=== PATIENT | female | born 1945 | race Caucasian/White ===

== ENCOUNTER 2020-11-04 16:53 | Inpatient (IN) | payer MEDICARE ==
[2020-11-04] MEDS ORDERED: METOCLOPRAMIDE 5 MG/ML 2 ML VIAL IVP STA (19:17)
[2020-11-04] MEDS ORDERED: SODIUM CHLORIDE 0.9% 1,000 ML IV STA (19:17)
--- NOTE | 2020-11-04 19:20 | ED ---
General Adult HPI - General Chief complaint: Abdominal Pain Stated complaint: Abd Pain,Dizziness Time Seen by Provider: 11/04/20 19:00 Source: patient, RN notes reviewed, old records reviewed Mode of arrival: wheelchair Limitations: no limitations - History of Present Illness Initial comments: 75-year-old white female that presents to the emergency room with complaints of nausea and vomiting 1 today and multiple episodes of diarrhea. She states that she has abdominal cramping and there has been blood in the stool. This has never happened to her before. She has a history of cholecystectomy. She denies any sick contacts. She has been afebrile. She does state she has relief with the pain after diarrhea but then pain comes back. -: days(s) (1) Location: abdomen Severity scale (1-10): 7 Quality: other Consistency: intermittent (Cramping) Associated Symptoms: nausea/vomiting, other (Dizziness) - Related Data Home Medications Medication Instructions Recorded Confirmed Cetirizine HCl 10 mg PO DAILY PRN 10/05/15 11/04/20 lisinopriL [Zestril] 10 mg PO HS 10/05/15 11/04/20 Aspirin EC [Ecotrin] 325 mg PO HS 11/04/20 11/04/20 Atorvastatin Calcium [Lipitor] 20 mg PO HS 11/04/20 11/04/20 Allergies Allergy/AdvReac Type Severity Reaction Status Date / Time neomycin Allergy Rash/Hives Verified 11/04/20 22:00 Sulfa (Sulfonamide Allergy Dyspnea Verified 11/04/20 22:00 Antibiotics) tobramycin [From Tobrex] Allergy Swelling Verified 11/04/20 22:00 Review of Systems ROS Statement: Those systems with pertinent positive or pertinent negative responses have been documented in the HPI. ROS Other: All systems not noted in ROS Statement are negative. Past Medical History Past Medical History: CVA/TIA, Diabetes Mellitus, Hyperlipidemia, Hypertension, Osteoarthritis (OA) Additional Past Medical History / Comment(s): pt state" has elevated blood calcium levels-dr valdez, arthtitis, diet controled diabetic, checks bs occ, takes no meds. cataracats,bladder infection History of Any Multi-Drug Resistant Organisms: None Reported Past Surgical History: Adenoidectomy, Cholecystectomy, Tubal Ligation Additional Past Surgical History / Comment(s): cysts removed from face Past Anesthesia/Blood Transfusion Reactions: No Reported Reaction Additional Past Anesthesia/Blood Transfusion Reaction / Comment(s): clausterphobia Past Psychological History: No Psychological Hx Reported Smoking Status: Never smoker Past Alcohol Use History: Occasional Past Drug Use History: None Reported - Past Family History Father Additional Family Medical History / Comment(s): from "hardening of the arteries" Mother Family Medical History: CVA/TIA, Myocardial Infarction ([place]) General Exam Limitations: no limitations Course Vital Signs 11/04/20 11/04/20 18:02 23:15 Temperature 98.4 F Pulse Rate 101 H 123 H Respiratory 20 18 Rate Blood Pressure 151/82 146/94 O2 Sat by Pulse 95 97 Oximetry Medical Decision Making - Medical Decision Making There is inflammatory changes around the mid sigmoid colon consistent with colitis or diverticulitis. There is no abscess. Her white blood cell count is 13.7. Her potassium is 5.8 however patient does state that she is being evaluated for chronic kidney disease by her hospitalist nocturnist physician. Patient continues to have intermittent abdominal pain and diarrhea while in the emergency room. I will admit the patient with diverticulitis. Case discussed with Dr. Bunn - Lab Data Result diagrams: 11/04/20 21:04 11/04/20 21:04 Lab Results 11/04/20 11/04/20 11/04/20 Range/Units 19:56 19:56 21:04 WBC (3.8-10.6) k/uL RBC (3.80-5.40) m/uL Hgb (11.4-16.0) gm/dL Hct (34.0-46.0) % MCV (80.0-100.0) fL MCH (25.0-35.0) pg MCHC (31.0-37.0) g/dL RDW (11.5-15.5) % Plt Count (150-450) k/uL MPV Neutrophils % % Lymphocytes % % Monocytes % % Eosinophils % % Basophils % % Neutrophils # (1.3-7.7) k/uL Lymphocytes # (1.0-4.8) k/uL Monocytes # (0-1.0) k/uL Eosinophils # (0-0.7) k/uL Basophils # (0-0.2) k/uL Sodium 137 (137-145) mmol/L Potassium 5.8 H (3.5-5.1) mmol/L Chloride 107 (98-107) mmol/L Carbon Dioxide 20 L (22-30) mmol/L Anion Gap 10 mmol/L BUN 18 H (7-17) mg/dL Creatinine 1.13 H (0.52-1.04) mg/dL Est GFR (CKD-EPI)AfAm 55 (>60 ml/min/1.73 sqM) Est GFR (CKD-EPI)NonAf 48 (>60 ml/min/1.73 sqM) Glucose 167 H (74-99) mg/dL Calcium 9.7 (8.4-10.2) mg/dL Total Bilirubin 1.7 H (0.2-1.3) mg/dL AST 51 H (14-36) U/L ALT 20 (4-34) U/L Alkaline Phosphatase 55 (38-126) U/L Total Protein 7.8 (6.3-8.2) g/dL Albumin 4.5 (3.5-5.0) g/dL Amylase 74 (30-110) U/L Lipase 105 (23-300) U/L Urine Color Yellow Urine Appearance Cloudy H (Clear) Urine pH 5.0 (5.0-8.0) Ur Specific [place] 1.012 (1.001-1.035) Urine Protein Trace H (Negative) Urine Glucose (UA) Negative (Negative) Urine Ketones Trace H (Negative) Urine Blood Negative (Negative) Urine Nitrite Negative (Negative) Urine Bilirubin Negative (Negative) Urine Urobilinogen <2.0 (<2.0) mg/dL Ur Leukocyte Esterase Negative (Negative) Urine RBC 1 (0-5) /hpf Urine WBC 2 (0-5) /hpf Ur Squamous Epith Cells 2 (0-4) /hpf Amorphous Sediment Rare H (None) /hpf Urine Bacteria Rare H (None) /hpf Hyaline Casts 32 H (0-2) /lpf Granular Casts 5 (0) /lpf Urine Mucus Rare H (None) /hpf Influenza Type A (PCR) Not Detected (Not Detectd) Influenza Type B (PCR) Not Detected (Not Detectd) RSV (PCR) Not Detected (Not Detectd) SARS-CoV-2 (PCR) Not Detected (Not Detectd) 11/04/20 Range/Units 21:04 WBC 13.7 H (3.8-10.6) k/uL RBC 5.55 H (3.80-5.40) m/uL Hgb 16.4 H (11.4-16.0) gm/dL Hct 47.6 H (34.0-46.0) % MCV 85.9 (80.0-100.0) fL MCH 29.5 (25.0-35.0) pg MCHC 34.3 (31.0-37.0) g/dL RDW 13.5 (11.5-15.5) % Plt Count 172 (150-450) k/uL MPV 9.4 Neutrophils % 88 % Lymphocytes % 6 % Monocytes % 4 % Eosinophils % 1 % Basophils % 0 % Neutrophils # 12.0 H (1.3-7.7) k/uL Lymphocytes # 0.9 L (1.0-4.8) k/uL Monocytes # 0.5 (0-1.0) k/uL Eosinophils # 0.2 (0-0.7) k/uL Basophils # 0.1 (0-0.2) k/uL Sodium (137-145) mmol/L Potassium (3.5-5.1) mmol/L Chloride (98-107) mmol/L Carbon Dioxide (22-30) mmol/L Anion Gap mmol/L BUN (7-17) mg/dL Creatinine (0.52-1.04) mg/dL Est GFR (CKD-EPI)AfAm (>60 ml/min/1.73 sqM) Est GFR (CKD-EPI)NonAf (>60 ml/min/1.73 sqM) Glucose (74-99) mg/dL Calcium (8.4-10.2) mg/dL Total Bilirubin (0.2-1.3) mg/dL AST (14-36) U/L ALT (4-34) U/L Alkaline Phosphatase (38-126) U/L Total Protein (6.3-8.2) g/dL Albumin (3.5-5.0) g/dL Amylase (30-110) U/L Lipase (23-300) U/L Urine Color Urine Appearance (Clear) Urine pH (5.0-8.0) Ur Specific [place] (1.001-1.035) Urine Protein (Negative) Urine Glucose (UA) (Negative) Urine Ketones (Negative) Urine Blood (Negative) Urine Nitrite (Negative) Urine Bilirubin (Negative) Urine Urobilinogen (<2.0) mg/dL Ur Leukocyte Esterase (Negative) Urine RBC (0-5) /hpf Urine WBC (0-5) /hpf Ur Squamous Epith Cells (0-4) /hpf Amorphous Sediment (None) /hpf Urine Bacteria (None) /hpf Hyaline Casts (0-2) /lpf Granular Casts (0) /lpf Urine Mucus (None) /hpf Influenza Type A (PCR) (Not Detectd) Influenza Type B (PCR) (Not Detectd) RSV (PCR) (Not Detectd) SARS-CoV-2 (PCR) (Not Detectd) Disposition Clinical Impression: Diverticulitis Disposition: ADMITTED IP TO THIS [facility] Condition: Fair Referrals: Julius Cheng MD [Primary Care Provider] - 1-2 days Decision Date: 11/05/20 Decision Time: 01:17
[2020-11-04 21:34] LABS: Basophils # (A) 0.1 k/uL (0-0.2); Basophils % (A) 0 %; Eosinophils # (A) 0.2 k/uL (0-0.7); Eosinophils % (A) 1 %; HCT 47.6 % (34.0-46.0); HGB 16.4 gm/dL (11.4-16.0); Lymphocytes # (A) 0.9 k/uL (1.0-4.8); Lymphocytes % (A) 6 %; MCH 29.5 pg (25.0-35.0); MCHC 34.3 g/dL (31.0-37.0); MCV 85.9 fL (80.0-100.0); Mean Platelet Volume 9.4; Monocytes # (A) 0.5 k/uL (0-1.0); Monocytes % (A) 4 %; Neutrophils % (A) 88 %; Platelet Count 172 k/uL (150-450); RBC 5.55 m/uL (3.80-5.40); RDW 13.5 % (11.5-15.5); WBC 13.7 k/uL (3.8-10.6)
[2020-11-04 21:36] LABS: Albumin 4.5 g/dL (3.5-5.0); Calcium 9.7 mg/dL (8.4-10.2); Total Bilirubin 1.7 mg/dL (0.2-1.3); Total Protein 7.8 g/dL (6.3-8.2)
[2020-11-04 21:37] LABS: Potassium 5.8 mmol/L (3.5-5.1)
[2020-11-04 23:43] LABS: Amorphous Sediment,Urine Rare /hpf; Appearance,Urine Cloudy (Clear); Bacteria,Urine Rare /hpf; Bilirubin,Urine Negative (Negative); Blood,Urine Negative (Negative); Color,Urine Yellow; Glucose,Urine (UA) Negative (Negative); Granular Casts,Urine 5 /lpf (0); Hyaline Casts,Urine 32 /lpf (0-2); Ketones,Urine Trace (Negative); Leukocyte Esterase,Urine Negative (Negative); Mucus,Urine Rare /hpf; Nitrite,Urine Negative (Negative); Protein,Urine Trace (Negative); RBC,Urine 1 /hpf (0-5); Specific Gravity,Urine 1.012 (1.001-1.035); Squamous Epithelial Cell,Urine 2 /hpf (0-4); Urobilinogen,Urine <2.0 mg/dL (<2.0); WBC,Urine 2 /hpf (0-5)
--- NOTE | 2020-11-05 01:01 | CT ---
EXAMINATION TYPE: CT abdomen pelvis wo con DATE OF EXAM: 11/05/2020 COMPARISON: None HISTORY: Abd Pain CT DLP: 934.60 mGycm Automated exposure control for dose reduction was used. Images obtained from the diaphragm to the floor the pelvis without contrast. Lung bases are clear. There is large hiatal hernia. Heart size is normal. There is no pericardial eff usion. There is no pleural effusion. Liver spleen pancreas appear intact. The bile ducts are not dila magui. Gallbladder is not seen. There is 2.8 cm low-density left adrenal mass. This is suggestive of benign disease. Kidneys have normal size and contour. There is no hydronephrosis. There is no evidence of a renal paula culus. Ureters are not dilated. There is no retroperitoneal adenopathy. Appendix appears normal. Blad javier distends smoothly. There is no inguinal hernia. There is no free fluid in the pelvis. There are n umerous sigmoid diverticula. There is minimal fat stranding around the mid sigmoid colon. There is mi ld wall thickening also. There is wall thickening of the descending colon extending from the splenic flexure to the mid sigmoid colon. There is no ascites. There is no free air. There is no sign of a bowel obstruction. The lumbar vertebra appear intact. There is no compression fracture. There is a minimal degenerative subluxation at L5-S1. The bony pelvis is intact. Hip joints are intact. IMPRESSION: There is inflammatory changes around the mid sigmoid colon consistent with colitis and diverticulitis . There is wall thickening consistent with some diffuse colitis of the descending colon and proximal sigmoid colon. No abscess..
[2020-11-05] MEDS ORDERED: metroNIDAZOLE-NS PMX 500 MG in SALINE 1 100ML.BAG IVPB STA (01:18)
[2020-11-05] MEDS ORDERED: cefTRIAXone IN SWFI 1,000 MG/10 ML SYRINGE IVP STA (01:21)
[2020-11-05] MEDS ORDERED: NALOXONE 0.4 MG/ML 1 ML VIAL IV PRN (01:22)
[2020-11-05] MEDS ORDERED: HYDROcodone/APAP 5-325MG 1 EACH TAB PO PRN (10:36)
[2020-11-05] MEDS ORDERED: LORATADINE 10 MG TAB PO PRN (10:39)
[2020-11-05] MEDS: PIPERACILLIN-TAZOBACTAM 3.375 GM in SODIUM CHLORIDE 0.9% 100 ML IVPB SCH ×2 (11:14→19:46)
[2020-11-05] MEDS: SODIUM CHLORIDE 0.9% 1,000 ML IV SCH (11:14)
--- NOTE | 2020-11-05 12:31 | P.GSCN ---
History of Present Illness Consult date: 11/05/20 Reason for Consult: GI bleeding History of present illness: 75-year-old female presents with crampy abdominal pain that began yesterday at lunch time. This was associated with numerous episodes of diarrhea that became bloody in appearance. CAT scan showed left sided colitis. C. diff is negative. Hemoglobin is 16, white blood cell count is 13.7. No nausea or vomiting. No history of similar events. She has not had a colonoscopy in the past. Review of Systems The patient denies any acute changes in vision or hearing, no dysphagia or odynophagia, no chest pain or shortness of breath, no dysuria or hematuria, no headache, no runny nose, no melena, no unexplained weight loss Past Medical History Past Medical History: CVA/TIA, Diabetes Mellitus, Hyperlipidemia, Hypertension, Osteoarthritis (OA) Additional Past Medical History / Comment(s): diet controled diabetic, checks bs occ, takes no meds. cataracats,bladder infection History of Any Multi-Drug Resistant Organisms: None Reported Past Surgical History: Adenoidectomy, Cholecystectomy, Tubal Ligation Additional Past Surgical History / Comment(s): cysts removed from face Past Anesthesia/Blood Transfusion Reactions: No Reported Reaction Additional Past Anesthesia/Blood Transfusion Reaction / Comm: clausterphobia Past Psychological History: No Psychological Hx Reported Smoking Status: Never smoker Past Alcohol Use History: Occasional Additional Past Alcohol Use History / Comment(s): started smoking at age 13 1/2 ppd off and on then quit age 32 Past Drug Use History: None Reported - Past Family History Father Additional Family Medical History / Comment(s): from "hardening of the arteries" Mother Family Medical History: CVA/TIA, Myocardial Infarction ([place]) Medications and Allergies Home Medications Medication Instructions Recorded Confirmed Type Cetirizine HCl 10 mg PO DAILY PRN 10/05/15 11/04/20 History lisinopriL [Zestril] 10 mg PO HS 10/05/15 11/04/20 History Aspirin EC [Ecotrin] 325 mg PO HS 11/04/20 11/04/20 History Atorvastatin Calcium [Lipitor] 20 mg PO HS 11/04/20 11/04/20 History Allergies Allergy/AdvReac Type Severity Reaction Status Date / Time neomycin Allergy Rash/Hives Verified 11/04/20 22:00 Sulfa (Sulfonamide Allergy Dyspnea Verified 11/04/20 22:00 Antibiotics) tobramycin [From Tobrex] Allergy Swelling Verified 11/04/20 22:00 Surgical - Exam Vital Signs Temp Pulse Resp BP Pulse Ox 98.4 F 101 H 20 151/82 95 11/04/20 18:02 11/04/20 18:02 11/04/20 18:02 11/04/20 18:02 11/04/20 18:02 Physical exam: General: Well-developed, well-nourished HEENT: Normocephalic, sclerae nonicteric Abdomen: Left-sided abdominal tenderness, nondistended Extremities: No edema Neuro: Alert and oriented Results - Labs 11/04/20 21:04 11/04/20 21:04 Abnormal Lab Results - Last 24 Hours (Table) 11/04/20 11/04/20 11/04/20 Range/Units 19:56 21:04 21:04 WBC 13.7 H (3.8-10.6) k/uL RBC 5.55 H (3.80-5.40) m/uL Hgb 16.4 H (11.4-16.0) gm/dL Hct 47.6 H (34.0-46.0) % Neutrophils # 12.0 H (1.3-7.7) k/uL Lymphocytes # 0.9 L (1.0-4.8) k/uL Potassium 5.8 H (3.5-5.1) mmol/L Carbon Dioxide 20 L (22-30) mmol/L BUN 18 H (7-17) mg/dL Creatinine 1.13 H (0.52-1.04) mg/dL Glucose 167 H (74-99) mg/dL Total Bilirubin 1.7 H (0.2-1.3) mg/dL AST 51 H (14-36) U/L Urine Appearance Cloudy H (Clear) Urine Protein Trace H (Negative) Urine Ketones Trace H (Negative) Amorphous Sediment Rare H (None) /hpf Urine Bacteria Rare H (None) /hpf Hyaline Casts 32 H (0-2) /lpf Urine Mucus Rare H (None) /hpf Diabetes panel 11/04/20 Range/Units 21:04 Sodium 137 (137-145) mmol/L Potassium 5.8 H (3.5-5.1) mmol/L Chloride 107 (98-107) mmol/L Carbon Dioxide 20 L (22-30) mmol/L BUN 18 H (7-17) mg/dL Creatinine 1.13 H (0.52-1.04) mg/dL Glucose 167 H (74-99) mg/dL Calcium 9.7 (8.4-10.2) mg/dL AST 51 H (14-36) U/L ALT 20 (4-34) U/L Alkaline Phosphatase 55 (38-126) U/L Total Protein 7.8 (6.3-8.2) g/dL Albumin 4.5 (3.5-5.0) g/dL Calcium panel 11/04/20 Range/Units 21:04 Calcium 9.7 (8.4-10.2) mg/dL Albumin 4.5 (3.5-5.0) g/dL Pituitary panel 11/04/20 Range/Units 21:04 Sodium 137 (137-145) mmol/L Potassium 5.8 H (3.5-5.1) mmol/L Chloride 107 (98-107) mmol/L Carbon Dioxide 20 L (22-30) mmol/L BUN 18 H (7-17) mg/dL Creatinine 1.13 H (0.52-1.04) mg/dL Glucose 167 H (74-99) mg/dL Calcium 9.7 (8.4-10.2) mg/dL Adrenal panel 11/04/20 Range/Units 21:04 Sodium 137 (137-145) mmol/L Potassium 5.8 H (3.5-5.1) mmol/L Chloride 107 (98-107) mmol/L Carbon Dioxide 20 L (22-30) mmol/L BUN 18 H (7-17) mg/dL Creatinine 1.13 H (0.52-1.04) mg/dL Glucose 167 H (74-99) mg/dL Calcium 9.7 (8.4-10.2) mg/dL Total Bilirubin 1.7 H (0.2-1.3) mg/dL AST 51 H (14-36) U/L ALT 20 (4-34) U/L Alkaline Phosphatase 55 (38-126) U/L Total Protein 7.8 (6.3-8.2) g/dL Albumin 4.5 (3.5-5.0) g/dL Assessment and Plan (1) Colitis Narrative/Plan: 75-year-old female with presentation consisting of abdominal pain, cramps, bloody stools, and CAT scan findings suspicious for ischemic left-sided colitis. Continue IV antibiotics. We'll add Flagyl. Check stool culture. Continue clear liquids. Will follow. Current Visit: Yes Status: Acute Code(s): K52.9 - NONINFECTIVE GASTROENTERITIS AND COLITIS, UNSPECIFIED SNOMED Code(s): 87931904
[2020-11-05 13:00] LABS: Hemoglobin A1C 7.5 % (4.0-6.0)
[2020-11-05] MEDS ORDERED: ALPRAZolam 0.25 MG TAB PO PRN (14:58)
--- NOTE | 2020-11-05 15:36 | XR ---
EXAMINATION TYPE: XR chest 1V portable DATE OF EXAM: 11/05/2020 COMPARISON: 10/05/2015 HISTORY: Chest pain TECHNIQUE: Single view FINDINGS: Heart and mediastinum are normal. Lungs are clear of consolidation. There is large hiatal h ernia. Heart size is normal. Bony thorax is intact. IMPRESSION: Hiatal hernia. No active cardiopulmonary disease. No change.
[2020-11-05] MEDS ORDERED: HEPARIN SODIUM,PORCINE/PF 5,000 UNIT/0.5 ML SYRINGE SQ ONE (16:00)
--- NOTE | 2020-11-05 16:06 | HP ---
HISTORY AND PHYSICAL DATE OF SERVICE: 11/05/2020 CHIEF COMPLAINTS: Abdominal pain and dizziness. HISTORY OF PRESENT ILLNESS: This 75-year-old woman with a past medical history of CVA, TIA, diabetes mellitus, hypertension, hyperlipidemia, history of DJD, history of diet-controlled diabetes mellitus, being followed by Dr. Cheng in the outpatient setting, was complaining of abdominal pain, nausea and vomiting for the last one day. The patient had multiple episodes of diarrhea, also. Patient also had abdominal cramping. The patient came to [facility] and was admitted for further evaluation and treatment. White count is elevated. Hemoglobin is 16.4. A CT scan of the abdomen and pelvis was done, which was personally reviewed by me. It showed inflammatory changes around the mid sigmoid colon consistent with colitis or diverticulitis. Patient is admitted for evaluation and treatment, and surgical evaluation by Dr. Servin is ongoing at this time. The patient was started on broad-spectrum IV antibiotics. There is no history of any fever, rigor or chills at this time. PAST MEDICAL HISTORY: History of CVA, TIA, diabetes mellitus, hypertension, hyperlipidemia, history of DJD, history of diet-controlled diabetes mellitus. MEDICATIONS: Lipitor, Ecotrin, Zestril, cetirizine. Doses are reviewed. ALLERGIES: NEOMYCIN, SULFA, TOBRAMYCIN. FAMILY HISTORY: History of CVA, TIA, myocardial infarction. SOCIAL HISTORY: Previous history of smoking. Occasional alcohol intake. REVIEW OF SYSTEMS: ENT: Diminished hearing. Diminished vision. CARDIOVASCULAR SYSTEM: No angina, palpitations. RESPIRATORY SYSTEM: No cough, hemoptysis. GI: As mentioned earlier. : No dysuria. NERVOUS SYSTEM: No numbness, weakness. ALLERGY/IMMUNOLOGY: No asthma or hay fever. MUSCULOSKELETAL: As mentioned earlier. HEMATOLOGY/ONCOLOGY: No history of anemia. ENDOCRINE: As mentioned earlier. CONSTITUTIONAL: As mentioned earlier. DERMATOLOGY: Negative. RHEUMATOLOGY: Negative. PSYCHIATRY: As mentioned earlier. PHYSICAL EXAMINATION: Patient alert and oriented x3. Pulse is 110, blood pressure 190/74, respiration 16, temperature 99.7, pulse ox 97% on room air. HEENT: Conjunctivae normal. Oral mucosa moist. NECK: No jugular venous distention. No carotid bruit. No lymph node enlargement. CARDIOVASCULAR: S1, S2 muffled. RESPIRATION: Breath sounds diminished at the bases. ABDOMEN: Soft. Mild diffuse tenderness present. No guarding. No rigidity. No mass palpable. No ascites. Bowel sounds present. LEGS: No edema. No swelling. NERVOUS SYSTEM: Higher functions as mentioned earlier. Moves all 4 limbs. No focal motor or sensory deficit. LYMPHATICS: No lymph node palpable in neck, axillae or groin. SKIN: No ulcer, rash, bleeding. JOINTS: No active deforming arthropathy. LAB STUDIES: WBC 13.3, hemoglobin 16.4. Sodium , potassium 5.2. Creatinine is 1.13. ASSESSMENT: 1. Acute abdominal pain with possible acute colitis or diverticulitis with sepsis, present on admission. 2. Acute renal failure, acute tubular necrosis. 3. Hyperkalemia secondary to renal failure. 4. Elevated bilirubin. 5. Increased AST. 6. Increased white count. 7. Increased hemoglobin. 8. History of cerebrovascular accident, transient ischemic attack. 9. Diabetes mellitus, type 2. 10.Hypertension. 11.Hyperlipidemia. 12.History of degenerative joint disease. 13.History of cataracts. 14.History of adenoidectomy. 15.History of cholecystectomy. 16.Obesity with body mass index of 32.3. 17.FULL CODE. RECOMMENDATIONS AND DISCUSSION: In this 75-year-old woman who presented with multiple complex medical issues, we will monitor the patient closely. Will initiate broad-spectrum IV antibiotics, Zosyn and Flagyl. Closely follow with Surgery. DVT prophylaxis. Symptomatic treatment. Prognosis guarded because of multiple complex medical issues. Further recommendations to follow. We will obtain the cultures also. A copy of this dictation is being forwarded to Dr. Cheng, who is the primary physician. MMODL / IJN: [id number] /
[2020-11-05] MEDS: metroNIDAZOLE-NS PMX 500 MG in SALINE 1 100ML.BAG IVPB SCH ×2 (16:51→23:58)
[2020-11-05 17:47] LABS: African American GFR (CKD) 63 (>60 ml/min/1.73 sqM); Anion Gap 9 mmol/L; Blood Urea Nitrogen 14 mg/dL (7-17); Calcium 9.6 mg/dL (8.4-10.2); Carbon Dioxide 23 mmol/L (22-30); Chloride 104 mmol/L (98-107); Glucose 162 mg/dL (74-99); Non-African American GFR(CKD) 55 (>60 ml/min/1.73 sqM); Sodium 136 mmol/L (137-145)
[2020-11-05] MEDS: lisinopriL 10 MG TAB PO SCH (20:03)
[2020-11-05] MEDS: ATORVASTATIN 20 MG TAB PO SCH (20:03)
[2020-11-06] MEDS: PIPERACILLIN-TAZOBACTAM 3.375 GM in SODIUM CHLORIDE 0.9% 100 ML IVPB SCH ×3 (04:27→20:00)
[2020-11-06] MEDS: HEPARIN SODIUM,PORCINE/PF 5,000 UNIT/0.5 ML SYRINGE SQ SCH ×2 (04:30→17:07)
[2020-11-06 07:55] LABS: Basophils # (A) 0.1 k/uL (0-0.2); Basophils % (A) 1 %; Eosinophils # (A) 0.1 k/uL (0-0.7); Eosinophils % (A) 1 %; HCT 38.9 % (34.0-46.0); Lymphocytes # (A) 1.4 k/uL (1.0-4.8); Lymphocytes % (A) 12 %; MCH 29.3 pg (25.0-35.0); MCHC 33.8 g/dL (31.0-37.0); MCV 86.6 fL (80.0-100.0); Mean Platelet Volume 7.4; Monocytes # (A) 0.6 k/uL (0-1.0); Monocytes % (A) 5 %; Neutrophils # (A) 9.5 k/uL (1.3-7.7); Neutrophils % (A) 80 %; Platelet Count 184 k/uL (150-450); RBC 4.49 m/uL (3.80-5.40); RDW 13.6 % (11.5-15.5); WBC 11.9 k/uL (3.8-10.6)
[2020-11-06 08:08] LABS: HGB 13.1 gm/dL (11.4-16.0)
[2020-11-06] MEDS: SODIUM CHLORIDE 0.9% 1,000 ML IV SCH (08:51)
[2020-11-06] MEDS: metroNIDAZOLE-NS PMX 500 MG in SALINE 1 100ML.BAG IVPB SCH ×2 (08:51→17:07)
[2020-11-06] MEDS: PANTOPRAZOLE 40 MG/10 ML VIAL IVP SCH (08:51)
--- NOTE | 2020-11-06 09:50 | P.PN ---
Subjective Progress Note Date: 11/06/20 Principal diagnosis: Ischemic colitis Patient doing better today. Says her pain is improved. She has had 3 loose stools since yesterday. These are mucousy with some blood. She is hungry. T- max 99.7. Tachycardia has resolved. White blood cell count improved at 11.9, hemoglobin 13.1. Objective - Vital Signs Vital signs: Vital Signs Temp 99.3 F 11/06/20 05:00 Pulse 86 11/06/20 05:00 Resp 16 11/06/20 05:00 BP 103/67 11/06/20 05:00 Pulse Ox 91 L 11/06/20 05:00 Intake & Output 11/05/20 11/06/20 11/06/20 18:59 06:59 18:59 Intake Total 560 590 Balance 560 590 Intake: Intake, IV Titration 560 Amount Piperacillin-Tazobactam 3 100 .375 gm In Sodium Chloride 0.9% 100 ml @ 25 mls/hr IVPB Q8H FRANCES Rx#: [id number] Sodium Chloride 0.9% 1, 360 000 ml @ 40 mls/hr IV . Q24H FRANCES Rx#:[id number] metroNIDAZOLE-NS PMX 500 100 mg In Saline 1 100ml.bag @ 100 mls/hr IVPB Q8HR FRANCES Rx#:[id number] Oral 590 Other: # Voids 2 - Exam Abdomen: Soft, mild left-sided tenderness, no rebound or guarding - Labs CBC & Chem 7: 11/06/20 07:14 11/05/20 16:40 Labs: Abnormal Lab Results - Last 24 Hours (Table) 11/05/20 11/05/20 11/06/20 Range/Units 06:04 16:40 07:14 WBC 11.9 H (3.8-10.6) k/uL Neutrophils # 9.5 H (1.3-7.7) k/uL Sodium 136 L (137-145) mmol/L Glucose 162 H (74-99) mg/dL Hemoglobin A1c 7.5 H (4.0-6.0) % Assessment and Plan (1) Colitis Narrative/Plan: Overall patient seems to be doing better. Continue antibiotics. Will increase diet. Will follow. Current Visit: Yes Status: Acute Code(s): K52.9 - NONINFECTIVE GASTROENTERITIS AND COLITIS, UNSPECIFIED SNOMED Code(s): 54840550
[2020-11-06 12:43] LABS: African American GFR (CKD) 63.8 (60.0-200.0); Albumin 3.7 g/dL (3.80-4.90); Albumin/Globulin Ratio 2.06 (1.60-3.17); Anion Gap -0.5 mmol/L (4.00-12.00); Calcium 8.9 mg/dL (8.7-10.3); Carbon Dioxide 29.5 mmol/L (21.6-31.8); Globulin 1.8 g/dL (1.6-3.3); Non-African American GFR(CKD) 55.1 (60.0-200.0); Potassium 3.7 mmol/L (3.5-5.5); Total Bilirubin 0.9 mg/dL (0.3-1.2); Total Protein 5.5 g/dL (6.2-8.2)
[2020-11-06] MEDS: ACETAMINOPHEN TAB 500 MG TAB PO PRN (13:11)
--- NOTE | 2020-11-06 19:15 | PN ---
PROGRESS NOTE DATE OF SERVICE: 11/06/2020 INTERVAL HISTORY: This 75-year-old woman was admitted with abdominal pain and dizziness and features of acute colitis, possibly ischemic colitis also considered. The patient is started on empiric antibiotics. No chest pain. No palpitations. No fever. Surgery is following the patient closely. PHYSICAL EXAMINATION: Alert and oriented x3. Pulse is 101, blood pressure is 112/73, respiration 18, temperature 98 degrees, pulse ox 94% on room air. HEENT: Conjunctivae normal. Oral mucosa moist. NECK: No jugular venous distention. No lymph node enlargement. CARDIOVASCULAR: S1, S2, muffled. No S3, no S4, RESPIRATORY: Diminished breath sounds at the bases. A few scattered rhonchi. ABDOMEN: Soft. Mild diffuse tenderness especially in the left lower part. No guarding, no rigidity. LEGS: No edema, no swelling. NERVOUS SYSTEM: No focal deficits. LABS: WBC 11.9. Other labs are noted. Cultures are negative so far. ASSESSMENT: 1. Acute abdominal pain with possible acute colitis or diverticulitis with sepsis, present on admission. 2. Acute renal failure with acute tubular necrosis, present on admission. 3. Hyperkalemia secondary to renal failure. 4. Elevated bilirubin. 5. Increased AST. 6. Increased WBC. 7. Elevated hemoglobin. 8. History of cerebrovascular accident, transient ischemic attack. 9. Diabetes mellitus type 2. 10.Hypertension. 11.Hyperlipidemia. 12.History of DJD. 13.History of cataracts. 14.History of adenoidectomy. 15.History of cholecystectomy. 16.Obesity with body mass index of 32.6. 17.FULL CODE. RECOMMENDATIONS AND DISCUSSION: Continue current management and symptomatic treatment. Continue the broad-spectrum IV antibiotics. Closely follow with surgery. DVT prophylaxis. Prognosis guarded. Further recommendations to follow. MMODL / IJN: [id number] /
[2020-11-06] MEDS: lisinopriL 10 MG TAB PO SCH (20:00)
[2020-11-06] MEDS: ATORVASTATIN 20 MG TAB PO SCH (20:00)
[2020-11-07] MEDS: metroNIDAZOLE-NS PMX 500 MG in SALINE 1 100ML.BAG IVPB SCH ×2 (00:21→08:37)
[2020-11-07] MEDS: ACETAMINOPHEN TAB 500 MG TAB PO PRN ×2 (00:25→19:52)
[2020-11-07] MEDS: PIPERACILLIN-TAZOBACTAM 3.375 GM in SODIUM CHLORIDE 0.9% 100 ML IVPB SCH ×3 (04:00→19:46)
[2020-11-07] MEDS: PANTOPRAZOLE 40 MG/10 ML VIAL IVP SCH (08:37)
[2020-11-07] MEDS: HEPARIN SODIUM,PORCINE/PF 5,000 UNIT/0.5 ML SYRINGE SQ SCH ×2 (08:37→19:46)
[2020-11-07 10:23] LABS: Basophils # (A) 0.1 k/uL (0-0.2); Basophils % (A) 1 %; Eosinophils # (A) 0.5 k/uL (0-0.7); Eosinophils % (A) 3 %; HCT 42.4 % (34.0-46.0); HGB 13.3 gm/dL (11.4-16.0); Lymphocytes % (A) 15 %; MCH 28.2 pg (25.0-35.0); MCHC 31.3 g/dL (31.0-37.0); MCV 90.2 fL (80.0-100.0); Mean Platelet Volume 7.5; Monocytes # (A) 0.4 k/uL (0-1.0); Monocytes % (A) 3 %; Neutrophils % (A) 77 %; Platelet Count 209 k/uL (150-450); RDW 13.4 % (11.5-15.5)
[2020-11-07 10:36] LABS: African American GFR (CKD) 77 (>60 ml/min/1.73 sqM); Anion Gap 8 mmol/L; Blood Urea Nitrogen 6 mg/dL (7-17); Calcium 9.6 mg/dL (8.4-10.2); Carbon Dioxide 24 mmol/L (22-30); Chloride 107 mmol/L (98-107); Glucose 189 mg/dL (74-99); Non-African American GFR(CKD) 67 (>60 ml/min/1.73 sqM); Potassium 3.5 mmol/L (3.5-5.1); Sodium 139 mmol/L (137-145)
[2020-11-07] MEDS ORDERED: Potassium Replacement Protocol 1 EACH MISC MISCELLANE PRN (11:50)
[2020-11-07] MEDS: POTASSIUM CHLORIDE ER 20 MEQ TAB.ER PO SCH ×2 (12:46→13:57)
[2020-11-07 13:05] VITALS: BMI 32.3
--- NOTE | 2020-11-07 13:56 | P.PN ---
Subjective Progress Note Date: 11/07/20 CHIEF COMPLAINT: Ischemic colitis HISTORY OF PRESENT ILLNESS: Patient reports improvement in her abdominal pain. She is having less stools. Her stools are becoming more formed. Her stools are brown. She's no longer having any blood in her stools. She denies any nausea or vomiting. She is tolerating full liquid diet. Afebrile. Her WBC did go up from 11.9-13. She has not had a colonoscopy in the past. PHYSICAL EXAM: VITAL SIGNS: Reviewed. GENERAL: Well-developed in no acute distress. HEENT: No sclera icterus. Extraocular movements grossly intact. Moist buccal mucosa. Head is atraumatic, normocephalic. ABDOMEN: Soft. Nondistended. Mild tenderness to palpation of left side of the abdomen NEUROLOGIC: Alert and oriented. Cranial nerves II through XII grossly intact. ASSESSMENT: 1. Colitis likely ischemic. Patient is improving PLAN: -Continue full liquid diet -Continue antibiotics -No surgical intervention planned -Recommend conservative management -Recommend outpatient colonoscopy in 6-8 weeks Physician Junior Analyst note has been reviewed by physician. Signing provider agrees with the documented findings, assessment, and plan of care. Objective - Vital Signs Vital signs: Vital Signs Temp 97.7 F 11/07/20 11:24 Pulse 92 11/07/20 11:24 Resp 18 11/07/20 11:24 BP 121/75 11/07/20 11:24 Pulse Ox 94 L 11/07/20 11:24 Intake & Output 11/06/20 11/07/20 11/07/20 18:59 06:59 18:59 Intake Total 680 950 Balance 680 950 Weight 90.718 kg Intake: Intake, IV Titration 680 660 Amount Piperacillin-Tazobactam 3 100 200 .375 gm In Sodium Chloride 0.9% 100 ml @ 25 mls/hr IVPB Q8H [facility] Rx#: [id number] Sodium Chloride 0.9% 1, 480 360 000 ml @ 40 mls/hr IV . Q24H [facility] Rx#:[id number] metroNIDAZOLE-NS PMX 500 100 100 mg In Saline 1 100ml.bag @ 100 mls/hr IVPB Q8HR [facility] Rx#:[id number] Oral 290 Other: # Voids 2 - Labs CBC & Chem 7: 11/07/20 09:53 11/07/20 09:53 Labs: Abnormal Lab Results - Last 24 Hours (Table) 11/07/20 11/07/20 Range/Units 09:53 09:53 WBC 13.0 H (3.8-10.6) k/uL Neutrophils # 10.0 H (1.3-7.7) k/uL BUN 6 L (7-17) mg/dL Glucose 189 H (74-99) mg/dL Microbiology - Last 24 Hours (Table) 11/05/20 16:40 Blood Culture - Preliminary Blood No Growth after 24 hours 11/05/20 15:43 Stool Culture - Preliminary Stool
[2020-11-07] MEDS: SODIUM CHLORIDE 0.9% 1,000 ML IV SCH (14:00)
--- NOTE | 2020-11-07 15:53 | P.PN ---
Subjective Progress Note Date: 11/07/20 This is a 75-year-old female who is a bit with abdominal pain, dizziness and features of acute colitis, possible ischemic colitis. She was started on empiric antibiotics. No chest pain or palpitations, no fever. Surgery is following the patient closely. 11/07/2020 Patient is evaluated today sitting up at the bedside. She reports since midnight she has had 3 loose bowel movements, however she denies any blood in the stool. Patient denies any nausea vomiting or diarrhea. She states that she is tolerating a full liquid diet. She denies any chest pain, palpitations. She denies any cough or shortness of breath. Chest x-ray showed a hiatal hernia, negative for cardiopulmonary disease. Abdomen pelvis CT on admission showed inflammatory changes around the sigmoid colon consistent with colitis and diverticulitis. No abscess. Labs today show a white count of 13 which is increased from 11.9. Potassium of 3.5 replaced per protocol. Patient's A1c is 7.5, continues to have elevated blood sugars. C. diff toxin was negative. Vital signs are stable today, temp 97.9, heart rate 92 sinus rhythm, blood pressure 121/75. Patient is 94% on room air. ROS Constitutional: Denied any fatigue denied any fever. Cardio vascular: denied any chest pain, palpitations Gastrointestinal: denied any nausea vomiting, reports diarrhea 3, denies blood in the stool denies abdominal pain Pulmonary: Denied any shortness of breath cough Neurologic denied any new focal deficits All inpatient medications were reviewed and appropriate changes in these medications as dictated in the interval history and assessment and plan. PHYSICAL EXAMINATION: GENERAL: The patient is alert and oriented x3, not in any acute distress. Well developed, well nourished. HEENT: Pupils are round and equally reacting to light. EOMI. No scleral icterus. No conjunctival pallor. Normocephalic, atraumatic. No pharyngeal erythema. No thyromegaly. CARDIOVASCULAR: S1 and S2 present. No murmurs, rubs, or gallops. PULMONARY: Chest is clear to auscultation, no wheezing or crackles. ABDOMEN: Soft, nontender, nondistended, normoactive bowel sounds. No palpable organomegaly. MUSCULOSKELETAL: No joint swelling or deformity. EXTREMITIES: No cyanosis, clubbing, trace ankle edema. NEUROLOGICAL: Gross neurological examination did not reveal any focal deficits. SKIN: No rashes. Assessment and plan Assessment 1. Acute abdominal pain with possible acute colitis or diverticulitis with sepsis, present on admission. 2. Acute renal failure with acute tubular necrosis, present on admission. 3. Hyperkalemia secondary to acute renal failure, repleted now 3.5 replaced per protocol 4. Leukocytosis, most likely related to colitis, diverticulitis. Currently 13; continue on IV antibiotics 5. Diabetes mellitus type 2 with hyperglycemia, uncontrolled hemoglobin A1c 7.5 6. Hypertension 7. Hyperlipidemia 8. Increased AST 9. Obesity 10. Full code GI prophylaxis Protonix DVT prophylaxis subcu heparin Plan Patient will continue on antibiotics in the form of IV Zosyn and IV Flagyl. She continues on 0.9 normal saline at 40. Continue all other home medications. Replace potassium per protocol. Repeat labs in the morning. Patient to be monitored overnight as recommended by surgical services, if she remains afebrile patient can be discharged home on Augmentin therapy. Objective - Vital Signs Vital signs: Vital Signs Temp 97.7 F 11/07/20 11:24 Pulse 92 11/07/20 11:24 Resp 18 11/07/20 11:24 BP 121/75 11/07/20 11:24 Pulse Ox 94 L 11/07/20 11:24 Intake & Output 11/06/20 11/07/20 11/07/20 18:59 06:59 18:59 Intake Total 680 950 Balance 680 950 Intake: Intake, IV Titration 680 660 Amount Piperacillin-Tazobactam 3 100 200 .375 gm In Sodium Chloride 0.9% 100 ml @ 25 mls/hr IVPB Q8H [facility] Rx#: [id number] Sodium Chloride 0.9% 1, 480 360 000 ml @ 40 mls/hr IV . Q24H [facility] Rx#:[id number] metroNIDAZOLE-NS PMX 500 100 100 mg In Saline 1 100ml.bag @ 100 mls/hr IVPB Q8HR [facility] Rx#:[id number] Oral 290 Other: # Voids 2 - Labs CBC & Chem 7: 11/07/20 09:53 11/07/20 09:53 Labs: Abnormal Lab Results - Last 24 Hours (Table) 11/06/20 11/07/20 11/07/20 Range/Units 07:14 09:53 09:53 WBC 13.0 H (3.8-10.6) k/uL Neutrophils # 10.0 H (1.3-7.7) k/uL Anion Gap -0.50 L (4.00-12.00) mmol/L BUN 6 L (7-17) mg/dL Est GFR (CKD-EPI)NonAf 55.1 L (60.0-200.0) BUN/Creatinine Ratio 9.00 L (12.00-20.00) Ratio Glucose 146 H 189 H (70-110) mg/dL Total Protein 5.5 L (6.2-8.2) g/dL Albumin 3.70 L (3.80-4.90) g/dL Microbiology - Last 24 Hours (Table) 11/05/20 16:40 Blood Culture - Preliminary Blood No Growth after 24 hours 11/05/20 15:43 Stool Culture - Preliminary Stool
[2020-11-07] MEDS: ATORVASTATIN 20 MG TAB PO SCH (19:46)
[2020-11-07] MEDS: lisinopriL 10 MG TAB PO SCH (19:46)
[2020-11-08] MEDS: PIPERACILLIN-TAZOBACTAM 3.375 GM in SODIUM CHLORIDE 0.9% 100 ML IVPB SCH ×3 (04:03→21:02)
[2020-11-08] MEDS: SODIUM CHLORIDE 0.9% 1,000 ML IV SCH (04:03)
[2020-11-08 06:21] LABS: Basophils # (A) 0.1 k/uL (0-0.2); Basophils % (A) 1 %; Eosinophils # (A) 0.5 k/uL (0-0.7); Eosinophils % (A) 5 %; HCT 39.9 % (34.0-46.0); HGB 12.7 gm/dL (11.4-16.0); Lymphocytes % (A) 19 %; MCH 28.9 pg (25.0-35.0); MCHC 31.9 g/dL (31.0-37.0); MCV 90.6 fL (80.0-100.0); Mean Platelet Volume 7.8; Monocytes # (A) 0.5 k/uL (0-1.0); Monocytes % (A) 5 %; Neutrophils # (A) 7.2 k/uL (1.3-7.7); Neutrophils % (A) 69 %; Platelet Count 187 k/uL (150-450); RDW 13.3 % (11.5-15.5); WBC 10.5 k/uL (3.8-10.6)
[2020-11-08 06:31] LABS: African American GFR (CKD) 77 (>60 ml/min/1.73 sqM); Anion Gap 7 mmol/L; Blood Urea Nitrogen 4 mg/dL (7-17); Calcium 9.4 mg/dL (8.4-10.2); Carbon Dioxide 24 mmol/L (22-30); Chloride 109 mmol/L (98-107); Glucose 134 mg/dL (74-99); Magnesium 1.7 mg/dL (1.6-2.3); Non-African American GFR(CKD) 67 (>60 ml/min/1.73 sqM); Potassium 3.7 mmol/L (3.5-5.1); Sodium 140 mmol/L (137-145)
[2020-11-08] MEDS: HEPARIN SODIUM,PORCINE/PF 5,000 UNIT/0.5 ML SYRINGE SQ SCH ×2 (08:05→21:02)
[2020-11-08] MEDS: PANTOPRAZOLE 40 MG TABLET PO SCH (08:05)
[2020-11-08] MEDS ORDERED: Magnesium Replacement Protocol 1 EACH MISC MISCELLANE PRN (09:01)
[2020-11-08] MEDS: POTASSIUM CHLORIDE ER 20 MEQ TAB.ER PO SCH ×2 (09:42→10:58)
[2020-11-08] MEDS: MAGNESIUM SULFATE-D5W PMX 1 GM in DEXTROSE/WATER 1 100ML.BAG IVPB SCH ×2 (09:42→10:59)
[2020-11-08] MEDS ORDERED: ONDANSETRON 4 MG/2 ML VIAL IVP PRN (09:46)
[2020-11-08] MEDS ORDERED: CHOLESTYRAMINE (WITH SUGAR) 4 GM PACKET PO STA (12:41)
--- NOTE | 2020-11-08 14:24 | P.PN ---
<CalVivi - Last Filed: 11/08/20 14:22> Subjective Progress Note Date: 11/08/20 CHIEF COMPLAINT: Ischemic colitis HISTORY OF PRESENT ILLNESS: PHYSICAL EXAM: VITAL SIGNS: Reviewed. GENERAL: Well-developed in no acute distress. HEENT: No sclera icterus. Extraocular movements grossly intact. Moist buccal mucosa. Head is atraumatic, normocephalic. ABDOMEN: Soft. Nondistended. Right lower and left lower quadrant tenderness. NEUROLOGIC: Alert and oriented. Cranial nerves II through XII grossly intact. ASSESSMENT: 1. Colitis likely ischemic. PLAN: -Continue full liquid diet -Continue antibiotics -No surgical intervention planned -Recommend outpatient follow-up with colonoscopy in 6-8 weeks The impression and plan of care has been dictated as directed. Dr. Servin I performed a history and examination of this patient, discussed the same with the dictator. I agree with the dictator's note ,documented as a scribe. Any additional findings or plans will be noted.. Objective - Vital Signs Vital signs: Vital Signs Temp 98.1 F 11/08/20 05:09 Pulse 82 11/08/20 05:09 Resp 16 11/08/20 05:09 BP 135/85 11/08/20 05:09 Pulse Ox 95 11/08/20 05:09 Intake & Output 11/07/20 11/08/20 11/08/20 18:59 06:59 18:59 Intake Total 680 300 Balance 680 300 Weight 90.718 kg Intake: Intake, IV Titration 680 300 Amount Piperacillin-Tazobactam 3 100 100 .375 gm In Sodium Chloride 0.9% 100 ml @ 25 mls/hr IVPB Q8H [facility] Rx#: [id number] Sodium Chloride 0.9% 1, 480 200 000 ml @ 40 mls/hr IV . Q24H [facility] Rx#:[id number] metroNIDAZOLE-NS PMX 500 100 mg In Saline 1 100ml.bag @ 100 mls/hr IVPB Q8HR [facility] Rx#:[id number] Other: # Voids 2 # Bowel Movements 2 - Labs CBC & Chem 7: 11/08/20 05:54 11/08/20 05:54 Labs: Abnormal Lab Results - Last 24 Hours (Table) 11/07/20 11/07/20 11/08/20 Range/Units 09:53 09:53 05:54 WBC 13.0 H (3.8-10.6) k/uL Neutrophils # 10.0 H (1.3-7.7) k/uL Chloride 109 H (98-107) mmol/L BUN 6 L 4 L (7-17) mg/dL Glucose 189 H 134 H (74-99) mg/dL Microbiology - Last 24 Hours (Table) 11/05/20 15:43 Stool Culture - Preliminary Stool 11/05/20 16:40 Blood Culture - Preliminary Blood No Growth after 48 hours <Donell Servin - Last Filed: 11/09/20 14:07> Subjective As above. Patient still having loose stools. Continue antibiotics. Continue full liquid diet. Objective - Vital Signs Vital signs: Vital Signs Temp 98 F 11/09/20 12:23 Pulse 82 11/09/20 12:23 Resp 19 11/09/20 12:23 BP 170/82 11/09/20 12:23 Pulse Ox 96 11/09/20 12:23 Intake & Output 11/08/20 11/09/20 11/09/20 18:59 06:59 18:59 Intake Total 880 985 Balance 880 985 Intake: Intake, IV Titration 880 625 Amount Magnesium Sulfate-D5w Pmx 200 1 gm In Dextrose/Water 1 100ml.bag @ 100 mls/hr IVPB Q1H [facility] Rx#: [id number] Piperacillin-Tazobactam 3 200 100 .375 gm In Sodium Chloride 0.9% 100 ml @ 25 mls/hr IVPB Q8H [facility] Rx#: [id number] Sodium Chloride 0.9% 1, 480 525 000 ml @ 75 mls/hr IV . [id number] [facility] Rx#:[id number] Oral 360 Other: Voiding Method Toilet - Labs CBC & Chem 7: 11/08/20 05:54 11/09/20 06:10 Labs: Abnormal Lab Results - Last 24 Hours (Table) 11/09/20 Range/Units 06:10 Chloride 109 H (98-107) mmol/L BUN 4 L (7-17) mg/dL Glucose 134 H (74-99) mg/dL Microbiology - Last 24 Hours (Table) 11/05/20 15:43 Stool Culture - Final Stool 11/05/20 16:40 Blood Culture - Preliminary Blood No Growth after 72 hours Assessment and Plan (1) Colitis Current Visit: Yes Status: Acute Code(s): K52.9 - NONINFECTIVE GASTROENTERITIS AND COLITIS, UNSPECIFIED SNOMED Code(s): 54871179
--- NOTE | 2020-11-08 14:41 | P.PN ---
Subjective Progress Note Date: 11/08/20 This is a 75-year-old female who is a bit with abdominal pain, dizziness and features of acute colitis, possible ischemic colitis. She was started on empiric antibiotics. No chest pain or palpitations, no fever. Surgery is following the patient closely. 11/07/2020 Patient is evaluated today sitting up at the bedside. She reports since midnight she has had 3 loose bowel movements, however she denies any blood in the stool. Patient denies any nausea vomiting or diarrhea. She states that she is tolerating a full liquid diet. She denies any chest pain, palpitations. She denies any cough or shortness of breath. Chest x-ray showed a hiatal hernia, negative for cardiopulmonary disease. Abdomen pelvis CT on admission showed inflammatory changes around the sigmoid colon consistent with colitis and diverticulitis. No abscess. Labs today show a white count of 13 which is increased from 11.9. Potassium of 3.5 replaced per protocol. Patient's A1c is 7.5, continues to have elevated blood sugars. C. diff toxin was negative. Vital signs are stable today, temp 97.9, heart rate 92 sinus rhythm, blood pressure 121/75. Patient is 94% on room air. 11/08/21 Patient is evaluated resting in bed. She states that since dinner yesterday she has had 5 loose bowel movements. She states it is a large quantity. She did note that there was some small dots of bright red blood that was different than when she has hemorrhoids. Patient denies any vomiting. She does admit to some nausea however denies abdominal pain. She denies any chest pain, palpitations. Denies cough or shortness of breath. She denies any dizziness or lightheadedness. Her lungs are clear to auscultation, bowels sounds are hyperactive, abdomen is soft and nontender. Leukocytosis has resolved white count today 10.5. Potassium is 3.7, mag 1.7, replaced per protocol. We will monitor patient, overnight, questran has been added and we will repeat labs in the morning. ROS Constitutional: Denied any fatigue denied any fever. Cardio vascular: denied any chest pain, palpitations Gastrointestinal: denied any nausea vomiting, reports diarrhea 3, denies blood in the stool denies abdominal pain Pulmonary: Denied any shortness of breath cough Neurologic denied any new focal deficits All inpatient medications were reviewed and appropriate changes in these medications as dictated in the interval history and assessment and plan. PHYSICAL EXAMINATION: GENERAL: The patient is alert and oriented x3, not in any acute distress. Well developed, well nourished. HEENT: Pupils are round and equally reacting to light. EOMI. No scleral icterus. No conjunctival pallor. Normocephalic, atraumatic. No pharyngeal erythema. No thyromegaly. CARDIOVASCULAR: S1 and S2 present. No murmurs, rubs, or gallops. PULMONARY: Chest is clear to auscultation, no wheezing or crackles. ABDOMEN: Soft, nontender, nondistended, normoactive bowel sounds. No palpable organomegaly. MUSCULOSKELETAL: No joint swelling or deformity. EXTREMITIES: No cyanosis, clubbing, trace ankle edema. NEUROLOGICAL: Gross neurological examination did not reveal any focal deficits. SKIN: No rashes. Assessment and plan Assessment 1. Acute abdominal pain with possible acute colitis or diverticulitis with sepsis, present on admission. 2. Acute renal failure with acute tubular necrosis, present on admission. 3. Hyperkalemia secondary to acute renal failure, repleted now 3.5 replaced per protocol 4. Leukocytosis, most likely related to colitis, diverticulitis. Currently 13; continue on IV antibiotics 5. Diabetes mellitus type 2 with hyperglycemia, uncontrolled hemoglobin A1c 7.5 6. Hypertension 7. Hyperlipidemia 8. Increased AST 9. Obesity 10. Full code GI prophylaxis Protonix DVT prophylaxis subcu heparin Plan Patient will continue on antibiotics in the form of IV Zosyn and IV Flagyl. Increase fluids to 0.9 at 75. Added questran for ongoing diarrhea.. Continue all other home medications. Replace potassium and mag per protocol. Repeat labs in the morning. Patient should be stable for discharge in the morning pending labs. Patient will need a colonoscopy in 6-8 weeks outpatient Objective - Vital Signs Vital signs: Vital Signs Temp 98.0 F 11/08/20 11:10 Pulse 82 11/08/20 11:10 Resp 16 11/08/20 11:10 BP 135/85 11/08/20 11:10 Pulse Ox 95 11/08/20 11:10 Intake & Output 11/07/20 11/08/20 11/08/20 18:59 06:59 18:59 Intake Total 680 300 Balance 680 300 Weight 90.718 kg Intake: Intake, IV Titration 680 300 Amount Piperacillin-Tazobactam 3 100 100 .375 gm In Sodium Chloride 0.9% 100 ml @ 25 mls/hr IVPB Q8H [facility] Rx#: [id number] Sodium Chloride 0.9% 1, 480 200 000 ml @ 40 mls/hr IV . Q24H [facility] Rx#:[id number] metroNIDAZOLE-NS PMX 500 100 mg In Saline 1 100ml.bag @ 100 mls/hr IVPB Q8HR [facility] Rx#:[id number] Other: # Voids 2 # Bowel Movements 2 - Labs CBC & Chem 7: 11/08/20 05:54 11/08/20 05:54 Labs: Abnormal Lab Results - Last 24 Hours (Table) 11/08/20 Range/Units 05:54 Chloride 109 H (98-107) mmol/L BUN 4 L (7-17) mg/dL Glucose 134 H (74-99) mg/dL Microbiology - Last 24 Hours (Table) 11/05/20 15:43 Stool Culture - Preliminary Stool 11/05/20 16:40 Blood Culture - Preliminary Blood No Growth after 48 hours Assessment and Plan Time with Patient: Greater than 30
[2020-11-08] MEDS: CHOLESTYRAMINE (WITH SUGAR) 4 GM PACKET PO SCH (18:08)
[2020-11-08] MEDS: lisinopriL 10 MG TAB PO SCH (21:02)
[2020-11-08] MEDS: ATORVASTATIN 20 MG TAB PO SCH (21:02)
[2020-11-09] MEDS: PIPERACILLIN-TAZOBACTAM 3.375 GM in SODIUM CHLORIDE 0.9% 100 ML IVPB SCH ×2 (04:49→12:17)
[2020-11-09 06:58] LABS: African American GFR (CKD) 83 (>60 ml/min/1.73 sqM); Anion Gap 7 mmol/L; Blood Urea Nitrogen 4 mg/dL (7-17); Calcium 9.7 mg/dL (8.4-10.2); Carbon Dioxide 25 mmol/L (22-30); Chloride 109 mmol/L (98-107); Glucose 134 mg/dL (74-99); Magnesium 1.9 mg/dL (1.6-2.3); Non-African American GFR(CKD) 72 (>60 ml/min/1.73 sqM); Potassium 4.2 mmol/L (3.5-5.1); Sodium 141 mmol/L (137-145)
[2020-11-09] MEDS: HEPARIN SODIUM,PORCINE/PF 5,000 UNIT/0.5 ML SYRINGE SQ SCH (07:41)
[2020-11-09] MEDS: PANTOPRAZOLE 40 MG TABLET PO SCH (07:41)
[2020-11-09] MEDS: ACETAMINOPHEN TAB 500 MG TAB PO PRN (07:44)
[2020-11-09] MEDS: CHOLESTYRAMINE (WITH SUGAR) 4 GM PACKET PO SCH (09:37)
--- NOTE | 2020-11-09 10:47 | P.PN ---
<Vivi Mccall - Last Filed: 11/09/20 10:44> Subjective Progress Note Date: 11/09/20 CHIEF COMPLAINT: Ischemic colitis HISTORY OF PRESENT ILLNESS: Patient is seen and examined sitting up at the bed side. She reports abdominal pain has improved. Diarrhea has also improved she only had one episode this morning of loose stool, states no blood in her stool. She's been afebrile. She denies any nausea or vomiting. She has been tolerating a full liquid diet. PHYSICAL EXAM: VITAL SIGNS: Reviewed. GENERAL: Well-developed in no acute distress. HEENT: No sclera icterus. Extraocular movements grossly intact. Moist buccal mucosa. Head is atraumatic, normocephalic. ABDOMEN: Soft. Nondistended. Mild left lower quadrant tenderness. NEUROLOGIC: Alert and oriented. Cranial nerves II through XII grossly intact. ASSESSMENT: 1. Colitis likely ischemic. PLAN: -Increased to low fiber diet -Continue antibiotics -No surgical intervention planned -Recommend outpatient follow-up with colonoscopy in 6-8 weeks -Patient is cleared for discharge from a surgical standpoint The impression and plan of care has been dictated as directed. Dr. Servin I performed a history and examination of this patient, discussed the same with the dictator. I agree with the dictator's note ,documented as a scribe. Any additional findings or plans will be noted.. Objective - Vital Signs Vital signs: Vital Signs Temp 98.5 F 11/09/20 04:33 Pulse 81 11/09/20 04:33 Resp 16 11/09/20 04:33 BP 152/86 11/09/20 04:33 Pulse Ox 93 L 11/09/20 04:33 Intake & Output 11/08/20 11/09/20 11/09/20 18:59 06:59 18:59 Intake Total 880 985 Balance 880 985 Intake: Intake, IV Titration 880 625 Amount Magnesium Sulfate-D5w Pmx 200 1 gm In Dextrose/Water 1 100ml.bag @ 100 mls/hr IVPB Q1H [facility] Rx#: [id number] Piperacillin-Tazobactam 3 200 100 .375 gm In Sodium Chloride 0.9% 100 ml @ 25 mls/hr IVPB Q8H [facility] Rx#: [id number] Sodium Chloride 0.9% 1, 480 525 000 ml @ 75 mls/hr IV . [id number] [facility] Rx#:[id number] Oral 360 Other: Voiding Method Toilet - Labs CBC & Chem 7: 11/08/20 05:54 11/09/20 06:10 Labs: Abnormal Lab Results - Last 24 Hours (Table) 11/09/20 Range/Units 06:10 Chloride 109 H (98-107) mmol/L BUN 4 L (7-17) mg/dL Glucose 134 H (74-99) mg/dL Microbiology - Last 24 Hours (Table) 11/05/20 16:40 Blood Culture - Preliminary Blood No Growth after 72 hours 11/05/20 15:43 Stool Culture - Preliminary Stool <Donell Servin - Last Filed: 11/09/20 14:41> Subjective As above. Patient doing well. No further pain. Diarrhea is improved. May discharge. Follow-up 2-3 weeks. Objective - Vital Signs Vital signs: Vital Signs Temp 98 F 11/09/20 12:23 Pulse 82 11/09/20 12:23 Resp 19 11/09/20 12:23 BP 170/82 11/09/20 12:23 Pulse Ox 96 11/09/20 12:23 Intake & Output 11/08/20 11/09/20 11/09/20 18:59 06:59 18:59 Intake Total 880 985 Balance 880 985 Intake: Intake, IV Titration 880 625 Amount Magnesium Sulfate-D5w Pmx 200 1 gm In Dextrose/Water 1 100ml.bag @ 100 mls/hr IVPB Q1H [facility] Rx#: [id number] Piperacillin-Tazobactam 3 200 100 .375 gm In Sodium Chloride 0.9% 100 ml @ 25 mls/hr IVPB Q8H [facility] Rx#: [id number] Sodium Chloride 0.9% 1, 480 525 000 ml @ 75 mls/hr IV . [id number] [facility] Rx#:[id number] Oral 360 Other: Voiding Method Toilet - Labs CBC & Chem 7: 11/08/20 05:54 11/09/20 06:10 Labs: Abnormal Lab Results - Last 24 Hours (Table) 11/09/20 Range/Units 06:10 Chloride 109 H (98-107) mmol/L BUN 4 L (7-17) mg/dL Glucose 134 H (74-99) mg/dL Microbiology - Last 24 Hours (Table) 11/05/20 15:43 Stool Culture - Final Stool 11/05/20 16:40 Blood Culture - Preliminary Blood No Growth after 72 hours Assessment and Plan (1) Colitis Current Visit: Yes Status: Acute Code(s): K52.9 - NONINFECTIVE GASTROENTERITIS AND COLITIS, UNSPECIFIED SNOMED Code(s): 21210166
[2020-11-09] MEDS: SODIUM CHLORIDE 0.9% 1,000 ML IV SCH (12:16)
[2020-11-09 12:24] VITALS: BP 170/82; PULSE 82; RESP 19; TEMP 98
--- NOTE | 2020-11-09 14:12 | P.DS ---
Providers Date of admission: 11/05/20 02:30 Attending physician: Marialuisa Szymanski Consults: 11/08/20 07:33 Consult Physician Routine Consulting Provider: Donell Servin Consult Reason/Comments: bloody stools Do you want consulting provider notified?: Already Contacted Primary care physician: Julius Cheng Hospital Course: Final diagnoses Acute Colitis/diverticulitis, ischemic versus infectious with sepsis, present on admission Acute abdominal pain with possible acute colitis or diverticulitis, present on admission, resolved -Acute diarrhea, related to possible colitis or diverticulitis, improving with question Hyperkalemia secondary to acute renal failure, resolved, with consequent hypokalemia Hypokalemia, secondary to diarrhea, resolved Leukocytosis, most likely related to colitis/diverticulitis, resolved Diabetes was stated to glycemia, uncontrolled A1c 7.5 Hypertension Hypokalemia Increased AST Obesity Full code GI prophylaxis discharged on Pepcid Discharge disposition Patient is discharged home in a stable condition. Her diarrhea is improving with the addition of oral question. C. diff toxin was negative. Patient was cleared by surgical services to continue on a low fiber diuretic for the next week. She will follow up with surgical services in the office. Plan is for a colonoscopy in 6-8 weeks. She will have repeat labs in 2-3 days. Hospital course This is a pleasant 75 year old female who presented to the hospital with abdominal pain, dizziness and had features of acute colitis, possible ischemic colitis. She was started on empiric antibiotics. Consult placed to to Gen. surgery. Abdomen pelvis CT revealed inflammatory changes from the mid sigmoid colon consistent with colitis and diverticulitis. There is wall thickening consistent with diffuse colitis of the descending colon and proximal sigmoid colon. No abscess. C. diff toxin was negative. Patient was transitioned from IV Zosyn to oral Augmentin on discharge to finish a course of antibiotic t herapy. Other diagnostics included a chest x-ray which revealed a hiatal hernia. No active cardiopulmonary disease. Labs reviewed included a white blood cell count of 11.9 on admission, sodium 136, potassium of 4. Patient did experience some hypokalemia, 3.5 which was replaced per protocol and today is 4.2. Patient's A1c this admission was found to be 7.5. Other significant medical history includes a CVA TIA, diabetes mellitus type 2, hyperlipidemia, hypertension, osteoarthritis. Vital signs this admission remained stable, temp 98, heart rate 82 sinus rhythm, blood pressure 152/86, 96% on room air. Patient was cleared by surgical services as her diarrhea is improving and there is no signs of blood in the stool, leukocytosis has resolved. She'll follow-up in the office in 6-8 weeks to have a colonoscopy with possible biopsies. Patient is discharged home on questran and repeat labs in 2 days. 11/09/2020 Today patient is sitting up in the chair. She denies any nausea, vomiting, abdominal pain. She does report episodes of diarrhea. The evening however she states they're becoming more formed and she feels much better on the questran. She denies any chest pain, palpitations, cough or shortness of breath. She denies any dizziness or lightheadedness. She is ambulatory without difficulty. There has been no blood in the stool. Patient is agreeable for discharge today and she is cleared from surgical services. Labs reviewed included a white blood cell count of 10.5, potassium of 4.2, magnesium of 1.9. Lungs are clear to auscultation, S1-S2 auscultated regular rate and rhythm. Abdomen is soft nontender with normoactive bowel sounds. Patient is cleared medically for discharge to follow up with surgical services and her PCP. Please see medication reconciliation for list of current medications. Thank you for allowing us to participate in the care of this patient. Patient Condition at Discharge: Good Plan - Discharge Summary New Discharge Prescriptions: New Famotidine [Pepcid] 20 mg PO BID #60 tablet Cholestyramine (with Sugar) [Questran Packet] 4 gm PO BID@1000,1800 #28 packet Acetaminophen Tab [Tylenol] 500 mg PO Q6HR PRN tab PRN Reason: Fever and/ or Mild Pain Amoxic-Pot Clav 875-125Mg [Augmentin 875-125] 1 tab PO Q12HR 5 Days #10 tab Continue lisinopriL [Zestril] 10 mg PO HS Cetirizine HCl 10 mg PO DAILY PRN PRN Reason: allergies Aspirin EC [Ecotrin] 325 mg PO HS Atorvastatin Calcium [Lipitor] 20 mg PO HS Discharge Medication List Cetirizine HCl 10 mg PO DAILY PRN 10/05/15 [History] lisinopriL [Zestril] 10 mg PO HS 10/05/15 [History] Aspirin EC [Ecotrin] 325 mg PO HS 11/04/20 [History] Atorvastatin Calcium [Lipitor] 20 mg PO HS 11/04/20 [History] Acetaminophen Tab [Tylenol] 500 mg PO Q6HR PRN tab 11/09/20 [Rx] Amoxic-Pot Clav 875-125Mg [Augmentin 875-125] 1 tab PO Q12HR 5 Days #10 tab 11/09/20 [Rx] Cholestyramine (with Sugar) [Questran Packet] 4 gm PO BID@1000,1800 #28 packet 11/09/20 [Rx] Famotidine [Pepcid] 20 mg PO BID #60 tablet 11/09/20 [Rx] Follow up Appointment(s)/Referral(s): Donell Servin MD [Medical Doctor] - 1 Week Julius Cheng MD [Primary Care Provider] - 1-2 days Ambulatory/Diagnostic Orders: Basic Metabolic Panel [LAB.AMB] Time Frame: 3 Days, Location: None Selected Complete Blood Count w/diff [LAB.AMB] Time Frame: 3 Days, Location: None Selected Patient Instructions/Handouts: Diverticulitis (DC), Colitis (ED), Full Liquid Diet (DC) Activity/Diet/Wound Care/Special Instructions: Continue with low fiber diet for 1 week Follow-up with Dr. Servin Discharge Disposition: HOME SELF-CARE
== END 2020-11-09 15:20 | disposition home or self-care (01) | DRG 871 ==
LOC: EC 16:53 → 5NMEDONC 11-05 02:30
PROVIDERS: ADMIT Hospitalist; ATTEND Hospitalist
DX: A41.9 Sepsis, unspecified organism (principal); N17.0 Acute kidney failure with tubular necrosis; K57.32 Diverticulitis of large intestine without perforation or abscess without bleeding; K51.50 Left sided colitis without complications; K55.9 Vascular disorder of intestine, unspecified; Z20.822 Contact with and (suspected) exposure to COVID-19; E11.65 Type 2 diabetes mellitus with hyperglycemia; E66.9 Obesity, unspecified; E78.5 Hyperlipidemia, unspecified; E87.5 Hyperkalemia; E87.6 Hypokalemia; I10 Essential (primary) hypertension; F40.240 Claustrophobia; K44.9 Diaphragmatic hernia without obstruction or gangrene; E80.6 Other disorders of bilirubin metabolism; Z68.32 Body mass index [BMI] 32.0-32.9, adult; Z79.82 Long term (current) use of aspirin; Z79.899 Other long term (current) drug therapy; Z82.49 Family history of ischemic heart disease and other diseases of the circulatory system; Z66 Do not resuscitate; Z86.73 Personal history of transient ischemic attack (TIA), and cerebral infarction without residual deficits; Z87.891 Personal history of nicotine dependence; Z90.49 Acquired absence of other specified parts of digestive tract; Z98.51 Tubal ligation status; Z98.890 Other specified postprocedural states; Z88.1 Allergy status to other antibiotic agents; Z88.2 Allergy status to sulfonamides
CPT/HCPCS: 36415; 71045; 74176; 80048; 80053; 81001; 82150; 83036; 83690; 83735; 85025; 87040; 87045; 87046; 87324; 87636; 93005; 96361; 96374; 99285

== ENCOUNTER 2021-07-01 07:09 | Inpatient (IN) | payer MEDICARE ==
[2021-07-01 08:22] LABS: Basophils # (A) 0.1 k/uL (0-0.2); Basophils % (A) 1 %; Eosinophils # (A) 0.1 k/uL (0-0.7); Eosinophils % (A) 1 %; HCT 44.1 % (34.0-46.0); HGB 13.7 gm/dL (11.4-16.0); Lymphocytes # (A) 0.5 k/uL (1.0-4.8); Lymphocytes % (A) 6 %; MCH 27.7 pg (25.0-35.0); MCHC 31.1 g/dL (31.0-37.0); MCV 89.1 fL (80.0-100.0); Mean Platelet Volume 7.7; Monocytes # (A) 0.5 k/uL (0-1.0); Monocytes % (A) 6 %; Neutrophils % (A) 85 %; Platelet Count 183 k/uL (150-450); RBC 4.95 m/uL (3.80-5.40); RDW 12.8 % (11.5-15.5); WBC 8.3 k/uL (3.8-10.6)
[2021-07-01 08:28] LABS: Albumin 4.1 g/dL (3.5-5.0); C Reactive Protein 5.7 mg/dL (<1.0); Calcium 9.5 mg/dL (8.4-10.2); Potassium 3.9 mmol/L (3.5-5.1); Total Bilirubin 0.9 mg/dL (0.2-1.3)
--- NOTE | 2021-07-01 08:34 | ED ---
Back Pain HPI - General Chief Complaint: Back Pain/Injury Stated Complaint: Back pain, headache Time Seen by Provider: 07/01/21 07:26 Source: patient, family, RN notes reviewed Limitations: no limitations - History of Present Illness Initial Comments: This is a 76-year-old female who presents to the emergency department for bone pain. Patient states that 2 days ago she was diagnosed with an ear infection. She was started on Augmentin and Flonase. After using the Flonase once, she states that she developed pain in her back, legs, hips, and arms. States that she was reviewing the side effects of Flonase, and found bone pain to be one of these side effects. She is also complaining of a headache and a somewhat decreased appetite. Her states that she is also not sleeping. During examination, it is noted that she seems somewhat confused and has very slow speech and minor aphasia. Her states that she woke up with confusion this morning and changes in her speech. Patient denies any fevers, chills, sore throat, visual changes, cough, dyspnea, chest pain, palpitations, abdominal pain, nausea, vomiting, diarrhea, constipation, dysuria, hematuria, or weakness. MD Complaint: back pain Onset/Timin -: days(s) - Related Data Home Medications Medication Instructions Recorded Confirmed lisinopriL [Zestril] 10 mg PO HS 10/05/15 11/04/20 Atorvastatin Calcium [Lipitor] 20 mg PO HS 11/04/20 11/04/20 Amoxicillin/Potassium Clav 2 tab PO BID 07/01/21 07/01/21 [Augmentin Xr 1,000-62.5 Tab] Fluticasone Nasal [place] [Flonase 1 - 2 spray EA NOSTRIL DAILY 07/01/21 07/01/21 Nasal [place]] Allergies Allergy/AdvReac Type Severity Reaction Status Date / Time neomycin Allergy Rash/Hives Verified 07/01/21 12:17 Sulfa (Sulfonamide Allergy Dyspnea Verified 07/01/21 12:17 Antibiotics) tobramycin [From Tobrex] Allergy Swelling Verified 07/01/21 12:17 Review of Systems ROS Statement: Those systems with pertinent positive or pertinent negative responses have been documented in the HPI. ROS Other: All systems not noted in ROS Statement are negative. Past Medical History Past Medical History: CVA/TIA, Diabetes Mellitus, Hyperlipidemia, Hypertension, Osteoarthritis (OA) Additional Past Medical History / Comment(s): diet controled diabetic, checks bs occ, takes no meds. cataracats,bladder infection History of Any Multi-Drug Resistant Organisms: None Reported Past Surgical History: Adenoidectomy, Cholecystectomy, Tubal Ligation Additional Past Surgical History / Comment(s): cysts removed from face Past Anesthesia/Blood Transfusion Reactions: No Reported Reaction Additional Past Anesthesia/Blood Transfusion Reaction / Comment(s): clausterphobia Past Psychological History: No Psychological Hx Reported Smoking Status: Never smoker Past Alcohol Use History: Occasional Past Drug Use History: None Reported - Past Family History Father Additional Family Medical History / Comment(s): from "hardening of the arteries" Mother Family Medical History: CVA/TIA, Myocardial Infarction (MO) General Exam Limitations: no limitations General appearance: alert, in no apparent distress Head exam: Present: atraumatic, normocephalic, normal inspection Respiratory exam: Present: normal lung sounds bilaterally. Absent: respiratory distress, wheezes, rales, rhonchi, stridor Cardiovascular Exam: Present: regular rate, normal rhythm, normal heart sounds. Absent: systolic murmur, diastolic murmur, rubs, gallop, clicks GI/Abdominal exam: Present: soft, normal bowel sounds. Absent: distended, tenderness, guarding, rebound, rigid Extremities exam: Present: normal inspection, full ROM. Absent: tenderness Back exam: Present: normal inspection, full ROM. Absent: tenderness Neurological exam: Present: alert, oriented X3, CN II-XII intact Expanded Neurological exam: Present: other (Slow speech, mild aphasia) Psychiatric exam: Present: normal affect, normal mood Skin exam: Present: warm, dry, intact, normal color. Absent: rash Course Vital Signs 07/01/21 07/01/21 07/01/21 07:15 08:21 12:13 Temperature 98.6 F 98.6 F Pulse Rate 99 93 91 Respiratory 18 18 14 Rate Blood Pressure 135/75 119/67 110/79 O2 Sat by Pulse 98 97 94 L Oximetry Medical Decision Making - Medical Decision Making This is a 76-year-old female who presents to the emergency department for bone pain and altered mental status. I spoke with the pharmacist regarding the Flonase use, and she did not believe that this is necessarily a contributing factor to the bone pain given the low systemic absorption. Lab work was obtained and unremarkable. Computed tomography scan of the brain was obtained in light of the altered mental status. This revealed no acute changes. Given the altered mental status, we will plan to admit the patient for observation with neurology consult. This case was discussed in detail with the attending ED physician. Presentation, findings, and treatment plan discussed in detail as well. - Lab Data Result diagrams: 07/01/21 07:52 07/01/21 07:52 Lab Results 07/01/21 07/01/21 07/01/21 Range/Units 07:52 07:52 07:52 WBC 8.3 (3.8-10.6) k/uL RBC 4.95 (3.80-5.40) m/uL Hgb 13.7 (11.4-16.0) gm/dL Hct 44.1 (34.0-46.0) % MCV 89.1 (80.0-100.0) fL MCH 27.7 (25.0-35.0) pg MCHC 31.1 (31.0-37.0) g/dL RDW 12.8 (11.5-15.5) % Plt Count 183 (150-450) k/uL MPV 7.7 Neutrophils % 85 % Lymphocytes % 6 % Monocytes % 6 % Eosinophils % 1 % Basophils % 1 % Neutrophils # 7.0 (1.3-7.7) k/uL Lymphocytes # 0.5 L (1.0-4.8) k/uL Monocytes # 0.5 (0-1.0) k/uL Eosinophils # 0.1 (0-0.7) k/uL Basophils # 0.1 (0-0.2) k/uL ESR 28 H (0-20) mm/hr Sodium 137 (137-145) mmol/L Potassium 3.9 (3.5-5.1) mmol/L Chloride 102 (98-107) mmol/L Carbon Dioxide 27 (22-30) mmol/L Anion Gap 8 mmol/L BUN 13 (7-17) mg/dL Creatinine 0.90 (0.52-1.04) mg/dL Est GFR (CKD-EPI)AfAm 72 (>60 ml/min/1.73 sqM) Est GFR (CKD-EPI)NonAf 63 (>60 ml/min/1.73 sqM) Glucose 169 H (74-99) mg/dL Calcium 9.5 (8.4-10.2) mg/dL Total Bilirubin 0.9 (0.2-1.3) mg/dL AST 30 (14-36) U/L ALT 23 (4-34) U/L Alkaline Phosphatase 58 (38-126) U/L CK-MB (CK-2) 0.2 (0.0-2.4) ng/mL C-Reactive Protein 5.7 H (<1.0) mg/dL Total Protein 7.0 (6.3-8.2) g/dL Albumin 4.1 (3.5-5.0) g/dL Urine Color Urine Appearance (Clear) Urine pH (5.0-8.0) Ur Specific [place] (1.001-1.035) Urine Protein (Negative) Urine Glucose (UA) (Negative) Urine Ketones (Negative) Urine Blood (Negative) Urine Nitrite (Negative) Urine Bilirubin (Negative) Urine Urobilinogen (<2.0) mg/dL Ur Leukocyte Esterase (Negative) Urine RBC (0-5) /hpf Urine WBC (0-5) /hpf Ur Squamous Epith Cells (0-4) /hpf Urine Mucus (None) /hpf Urine Opiates Screen (NotDetected) Ur Oxycodone Screen (NotDetected) Urine Methadone Screen (NotDetected) Ur Propoxyphene Screen (NotDetected) Ur Barbiturates Screen (NotDetected) U Tricyclic Antidepress (NotDetected) Ur Phencyclidine Scrn (NotDetected) Ur Amphetamines Screen (NotDetected) U Methamphetamines Scrn (NotDetected) U Benzodiazepines Scrn (NotDetected) Urine Cocaine Screen (NotDetected) U Marijuana (THC) Screen (NotDetected) 07/01/21 07/01/21 Range/Units 09:46 09:46 WBC (3.8-10.6) k/uL RBC (3.80-5.40) m/uL Hgb (11.4-16.0) gm/dL Hct (34.0-46.0) % MCV (80.0-100.0) fL MCH (25.0-35.0) pg MCHC (31.0-37.0) g/dL RDW (11.5-15.5) % Plt Count (150-450) k/uL MPV Neutrophils % % Lymphocytes % % Monocytes % % Eosinophils % % Basophils % % Neutrophils # (1.3-7.7) k/uL Lymphocytes # (1.0-4.8) k/uL Monocytes # (0-1.0) k/uL Eosinophils # (0-0.7) k/uL Basophils # (0-0.2) k/uL ESR (0-20) mm/hr Sodium (137-145) mmol/L Potassium (3.5-5.1) mmol/L Chloride (98-107) mmol/L Carbon Dioxide (22-30) mmol/L Anion Gap mmol/L BUN (7-17) mg/dL Creatinine (0.52-1.04) mg/dL Est GFR (CKD-EPI)AfAm (>60 ml/min/1.73 sqM) Est GFR (CKD-EPI)NonAf (>60 ml/min/1.73 sqM) Glucose (74-99) mg/dL Calcium (8.4-10.2) mg/dL Total Bilirubin (0.2-1.3) mg/dL AST (14-36) U/L ALT (4-34) U/L Alkaline Phosphatase (38-126) U/L CK-MB (CK-2) (0.0-2.4) ng/mL C-Reactive Protein (<1.0) mg/dL Total Protein (6.3-8.2) g/dL Albumin (3.5-5.0) g/dL Urine Color Yellow Urine Appearance Clear (Clear) Urine pH 6.0 (5.0-8.0) Ur Specific [place] 1.019 (1.001-1.035) Urine Protein Trace H (Negative) Urine Glucose (UA) Negative (Negative) Urine Ketones Negative (Negative) Urine Blood Trace H (Negative) Urine Nitrite Negative (Negative) Urine Bilirubin Negative (Negative) Urine Urobilinogen <2.0 (<2.0) mg/dL Ur Leukocyte Esterase Negative (Negative) Urine RBC 3 (0-5) /hpf Urine WBC 1 (0-5) /hpf Ur Squamous Epith Cells 1 (0-4) /hpf Urine Mucus Rare H (None) /hpf Urine Opiates Screen Not Detected (NotDetected) Ur Oxycodone Screen Not Detected (NotDetected) Urine Methadone Screen Not Detected (NotDetected) Ur Propoxyphene Screen Not Detected (NotDetected) Ur Barbiturates Screen Not Detected (NotDetected) U Tricyclic Antidepress Not Detected (NotDetected) Ur Phencyclidine Scrn Not Detected (NotDetected) Ur Amphetamines Screen Not Detected (NotDetected) U Methamphetamines Scrn Not Detected (NotDetected) U Benzodiazepines Scrn Not Detected (NotDetected) Urine Cocaine Screen Not Detected (NotDetected) U Marijuana (THC) Screen Not Detected (NotDetected) - EKG Data EKG Comments: Normal sinus rhythm. Ventricular rate 93 bpm, OH interval 165 ms, QRS duration 86 ms, QTC 358 ms. - Radiology Data Radiology results: report reviewed, image reviewed Disposition Clinical Impression: Altered mental status, Bone pain Disposition: ADMITTED IP TO THIS HOSP
[2021-07-01] MEDS ORDERED: SODIUM CHLORIDE 0.9% 1,000 ML IV ONE (08:36)
[2021-07-01 09:41] LABS: Erythrocyte Sedimentation Rate 28 mm/hr (0-20)
[2021-07-01 10:00] LABS: Appearance,Urine Clear (Clear); Bilirubin,Urine Negative (Negative); Blood,Urine Trace (Negative); Color,Urine Yellow; Glucose,Urine (UA) Negative (Negative); Ketones,Urine Negative (Negative); Leukocyte Esterase,Urine Negative (Negative); Mucus,Urine Rare /hpf; Nitrite,Urine Negative (Negative); Protein,Urine Trace (Negative); RBC,Urine 3 /hpf (0-5); Specific Gravity,Urine 1.019 (1.001-1.035); Squamous Epithelial Cell,Urine 1 /hpf (0-4); Urobilinogen,Urine <2.0 mg/dL (<2.0); WBC,Urine 1 /hpf (0-5)
[2021-07-01 10:11] LABS: Amphetamine Screen,Urine Not Detected (NotDetected); Barbiturate Screen,Urine Not Detected (NotDetected); Benzodiazepines Screen,Urine Not Detected (NotDetected); Cocaine Screen,Urine Not Detected (NotDetected); Methadone Screen, Urine Not Detected (NotDetected); Opiate Screen,Urine Not Detected (NotDetected); Oxycodone Screen, Urine Not Detected (NotDetected); Phencyclidine Screen,Urine Not Detected (NotDetected); Tricyclic Antidepressant,Urine Not Detected (NotDetected); Urn Cannabinoid Scrn Not Detected (NotDetected)
--- NOTE | 2021-07-01 10:34 | CT ---
EXAMINATION TYPE: CT brain wo con DATE OF EXAM: 07/01/2021 HISTORY: Change in speech, Confusion, History of CVA CT DLP: 1055.4 mGycm. Automated Exposure Control for Dose Reduction was Utilized. TECHNIQUE: CT scan of the head is performed without contrast. COMPARISON: Prior CT brain October 05, 2015. FINDINGS: There is no acute intracranial hemorrhage or midline shift identified. There is mild diff use ventricular and sulcal prominence consistent with diffuse age-related cerebral atrophy. There is mild low-attenuation in the periventricular white matter consistent with chronic small vessel ischem ic change. Nasal septum deviated to right of midline is redemonstrated. There is cystic change in th e posterior-inferior calvarium overlying the cerebellar hemisphere could be reactive from mass effect from the peripheral cerebellum, is unchanged from 2016 CT suggesting benign etiology The globes are intact and the visualized sinuses are clear. IMPRESSION: No acute intracranial hemorrhage or midline shift. There is mild diffuse age-related ce rebral atrophy and chronic small vessel ischemic change redemonstrated. No significant change from p rior CT.
[2021-07-01] MEDS ORDERED: oxyCODONE-APAP 5-325MG 1 EACH TAB PO PRN (11:51)
[2021-07-01] MEDS ORDERED: NALOXONE 0.4 MG/ML 1 ML VIAL IV PRN (11:51)
[2021-07-01] MEDS ORDERED: ONDANSETRON 4 MG/2 ML VIAL IVP PRN (11:51)
[2021-07-01] MEDS ORDERED: HYDROcodone/APAP 5-325MG 1 EACH TAB PO PRN (11:51)
[2021-07-01] MEDS: ACETAMINOPHEN TAB 325 MG TAB PO PRN ×2 (13:52→19:31)
--- NOTE | 2021-07-01 16:30 | MR ---
EXAMINATION TYPE: MR brain wo/w con DATE OF EXAM: 07/01/2021 COMPARISON: CT brain 07/01/2021 HISTORY: AMS, possible encephalitis. TECHNIQUE: Multiplanar, multisequence images of the brain and brainstem is performed without and with IV contras t, utilizing 9 mL intravenous Gadavist . FINDINGS: Diffusion weighted images demonstrate no evidence of a recent infarct or other diffusion ab normality. There is no extra-axial fluid collection or significant white matter signal abnormality. The ventricular system and cisternal spaces are normal in size and appearance. The brain volume is age appropriate. Scattered foci of T2 hyperintensity seen throughout the deep white matter. Midline structures demonstrate normal morphology. The craniocervical junction appears within normal limits. Post contrast images demonstrate no abnormal enhancement. The dural venous sinuses appear pa tent. The visualized sinuses are clear and the lenses are not visualized in the globes. IMPRESSION: 1. No evidence of intracranial mass, acute/subacute infarct, or abnormal enhancement to suggest encep halitis. 2. Nonspecific white matter changes, likely related to small vessel ischemic disease
--- NOTE | 2021-07-01 17:26 | P.CNNES ---
History of Present Illness Consult date: 07/01/21 Requesting physician: Clair Arredondo Reason for Consult: Altered mental status History of Present Illness: Patient is a 76-year-old right-handed female, who came to the hospital early this morning at 7:09 AM for evaluation of headaches, neck pain and speech difficulty. Patient not able to provide history. Patient appears somewhat aphasic, only states that "she went to the doctor and they had a aspirin". Patient's states that at baseline she is completely lucid, cooks, cleans house and speaks completely normally. Patient not able to provide any history. Patient's tells me that she was diagnosed with right ear infection on Saturday, 3 days prior to arrival. Her symptoms in the right ear pain has been present for 2 days prior to the diagnosis. She was told that she has fluid in the right ear. She was given a nasal spray and antibiotic. The next day on patient started having severe headache, pain in the lower back neck pain and back of the leg. Initially they felt that it was reaction to the antibiotic. She was having trouble sleeping and Saturday. Patient complained of aches and pain in the whole body. This a.m. patient told her to take her to the ER. The speech difficulty started this morning. Today she has noticed patient with trouble getting out of car, trouble with speaking, explaining at the check-in counter. She could not walk. Patient d enies any visual problems, double vision, focal numbness or tingling or paralysis. Denies any travel out of country. Vital signs on arrival blood pressure 135/75% 99 temperature 98.6. Her tempera ture went up to 103.2, and most recent is 102.7. Blood test shows normal CBC, CMP, UA is negative, urine drug screen negative. Patient's last hemoglobin A1c 7.5 on 11/05/2020. CT head showed no acute intracranial hemorrhage or midline shift. There is mild diffuse age-related cerebral atrophy and chronic small vessel ischemic change redemonstrated. No significant change from prior CT. At present patient complains of headache 9-10/10. She also complains of pain behind the right ear, was 9 before, but now it is 7/10. The low back pain was 9/10. Home medications include lisinopril 10 mg, Lipitor 20 mg, Flonase and Augmentin. Patient has borderline diabetes for 4 years. Also has hypertension. She is a nonsmoker, does not drink alcohol. Review of Systems All 14 point review was reviewed, unremarkable except as mentioned per HPI. The patient has high fever. Complains of generalized weakness, fatigue. No rash. Past Medical History Past Medical History: CVA/TIA, Diabetes Mellitus, Hyperlipidemia, Hypertension, Osteoarthritis (OA) Additional Past Medical History / Comment(s): diet controled diabetic, checks bs occ, takes no meds. cataracats,bladder infection History of Any Multi-Drug Resistant Organisms: None Reported Past Surgical History: Adenoidectomy, Cholecystectomy, Tubal Ligation Additional Past Surgical History / Comment(s): cysts removed from face Past Anesthesia/Blood Transfusion Reactions: No Reported Reaction Additional Past Anesthesia/Blood Transfusion Reaction / Comment(s): clausterphobia Past Psychological History: No Psychological Hx Reported Smoking Status: Never smoker Past Alcohol Use History: Occasional Additional Past Alcohol Use History / Comment(s): started smoking at age 13 1/2 ppd off and on then quit age 32 Past Drug Use History: None Reported - Past Family History Father Additional Family Medical History / Comment(s): from "hardening of the arteries" Mother Family Medical History: CVA/TIA, Myocardial Infarction ([place]) Medications and Allergies Home Medications Medication Instructions Recorded Confirmed Type lisinopriL [Zestril] 10 mg PO HS 10/05/15 07/01/21 History Atorvastatin Calcium [Lipitor] 20 mg PO HS 11/04/20 07/01/21 History Amoxicillin/Potassium Clav 2 tab PO BID 07/01/21 07/01/21 History [Augmentin Xr 1,000-62.5 Tab] Fluticasone Nasal [place] [Flonase 1 - 2 spray EA NOSTRIL DAILY 07/01/21 07/01/21 History Nasal [place]] Allergies Allergy/AdvReac Type Severity Reaction Status Date / Time neomycin Allergy Rash/Hives Verified 07/01/21 12:17 Sulfa (Sulfonamide Allergy Dyspnea Verified 07/01/21 12:17 Antibiotics) tobramycin [From Tobrex] Allergy Swelling Verified 07/01/21 12:17 Physical Examination - Vital Signs Vital Signs: Vital Signs Temp Pulse Resp BP BP Pulse Ox 07/01/21 13:30 102.7 F H 07/01/21 13:00 103.2 F H 16 130/77 92 L 07/01/21 12:13 98.6 F 91 14 110/79 94 L 07/01/21 08:21 93 18 119/67 97 07/01/21 07:15 98.6 F 99 18 135/75 98 Intake and Output 06/30/21 07/01/21 07/01/21 22:59 06:59 14:59 Other: Weight 88.451 kg Patient is an elderly female, in no respiratory distress. Patient is alert awake. She is fairly well oriented, states that she is in "[facility]" in [facility] and she knows name of the current president. She knows the city she lives in ([place]) and that she has 2 children. She knows her date of . Speech is stuttering, very hesitant, not very fluent. No obvious dysarthria. Attention, concentration and fund of knowledge is impaired. Patient can name and repeat very well. On cranial examination, pupils are equal, round and reacting to light, visual bell are full on confrontation, with no neglect on double simultaneous s timulation. Her extraocular muscles are intact with no nystagmus. Face is symmetric, tongue protrudes to the midline. Palatal elevation and sensation normal, hearing and shoulder shrug normal, facial sensation normal. Shoulder shrug normal. Patient's ears are slightly tender on pulling on the pinna. On muscle strength testing, there is no pronator drift and the strength is normal in arms and legs distally and proximally. Deep tendon reflexes are 1+ at bilateral biceps and brachioradialis, 1 at the knees, trace ankles and plantars are possibly upgoing bilaterally. Sensory to touch is equal with no neglect. Cerebellar function showed no ataxia for [id number] testing. Tone and bulk of muscles normal. Gait not checked. On general examination, there is no carotid bruit or murmur, S1-S2 audible. Abdomen is soft nontender. No organomegaly, bowel sounds present. Chest is elton ar to auscultation. Peripheral pulses are present. No edema. Results - Laboratory Findings CBC and BMP: 07/02/21 07:30 07/02/21 07:30 Abnormal Lab Findings: Abnormal Labs 07/01/21 07/01/21 07/01/21 07:52 07:52 09:46 Lymphocytes # 0.5 L ESR 28 H Glucose 169 H C-Reactive Protein 5.7 H Urine Protein Trace H Urine Blood Trace H Urine Mucus Rare H Assessment and Plan Assessment: * Acute febrile illness of 3 days duration with headache, neck and back pain, with new onset speech difficulty, generalized weakness and difficulty walking. Rule out herpes encephalitis, rule out meningitis/encephalitis. * Borderline diabetes * Hypertension * Hyperlipidemia Plan: * Lumbar puncture to evaluate for meningitis encephalitis. Anesthesia consulted. * MRI of the brain with and without contrast * Patient empirically started on ceftriaxone 2 g every 12 hours, acyclovir 750 mg IV every 8 hours. * Infectious disease consulted. * Loo virus PCR negative. Influenza screen and RSV negative. * DVT prophylaxis. * Neurology will follow. Thank you for the consult.
[2021-07-01] MEDS: SODIUM CHLORIDE 0.9% IVPB SCH (18:05)
[2021-07-01] MEDS: ACYCLOVIR SODIUM IVPB SCH (18:05)
[2021-07-01] MEDS: ATORVASTATIN 20 MG TAB PO SCH (19:31)
[2021-07-01 21:09] LABS: Glucose,Whole Blood 122 mg/dL (75-99)
--- NOTE | 2021-07-01 21:47 | P.CONS ---
History of Present Illness - Reason for Consult Consult date: 07/01/21 Possible encephalitis Requesting physician: Ugo Storm - Chief Complaint Weakness x few days - History of Present Illness Patient is a 76-year-old female presenting to the ER this morning for evaluation of generalized body aches and fever apparently the patient was recently diagnosed with a right ear infection for the patient started on Augmentin and Flonase patient has use of Flonase only once and developed pain in her back legs and arms looking at the side effect profile she thought was related to Flonase patient complaining of a headache which is mostly dull aching to throbbing about 7 out of 10 with no radiation did have slight photophobia nausea but no vomiting no chest pain shortness of breath or cough some vague lower abdominal pain and constipation but no diarrhea patient on presentation to the hospital did have a fever of 103.2 F did have a tachycardia also with evidence of some hypoxemia and need for supplemental oxygen patient did have normal white count with lymphopenia kidney function was normal her liver enzymes are normal urine has been negative urine drug screen was negative influenza COVID and RSV PCR was negative patient did have a CT of the brain that was negative for any intracranial hemorrhage patient has been evaluated by neurology LP has been requested which is currently pending patient is started on Rocephin and acyclovir infectious disease was consulted with concern for possible encephalitis patient currently noted that she is at [facility] the patient headache has improved some nausea but no vomiting as mentioned above Review of Systems Positive point has been mentioned in the HPI rest of the systems are negative Past Medical History Past Medical History: CVA/TIA, Diabetes Mellitus, Hyperlipidemia, Hypertension, Osteoarthritis (OA) Additional Past Medical History / Comment(s): diet controled diabetic, checks bs occ, takes no meds. cataracats,bladder infection History of Any Multi-Drug Resistant Organisms: None Reported Past Surgical History: Adenoidectomy, Cholecystectomy, Tubal Ligation Additional Past Surgical History / Comment(s): cysts removed from face Past Anesthesia/Blood Transfusion Reactions: No Reported Reaction Additional Past Anesthesia/Blood Transfusion Reaction / Comm: clausterphobia Past Psychological History: No Psychological Hx Reported Smoking Status: Never smoker Past Alcohol Use History: Occasional Additional Past Alcohol Use History / Comment(s): started smoking at age 13 1/2 ppd off and on then quit age 32 Past Drug Use History: None Reported - Past Family History Father Additional Family Medical History / Comment(s): from "hardening of the art eries" Mother Family Medical History: CVA/TIA, Myocardial Infarction ([place]) Medications and Allergies Home Medications Medication Instructions Recorded Confirmed Type lisinopriL [Zestril] 10 mg PO HS 10/05/15 07/09/21 History Atorvastatin Calcium [Lipitor] 20 mg PO HS 11/04/20 07/09/21 History Fluticasone Nasal [place] [Flonase 1 - 2 spray EA NOSTRIL DAILY 07/01/21 07/09/21 History Nasal [place]] Cefuroxime Axetil [Ceftin] 500 mg PO BID 7 Days #14 tab 07/07/21 07/09/21 Rx Doxycycline [Vibramycin] 100 mg PO BID #14 cap 07/07/21 07/09/21 Rx Allergies Allergy/AdvReac Type Severity Reaction Status Date / Time neomycin Allergy Rash/Hives Verified 07/09/21 13:26 Sulfa (Sulfonamide Allergy Dyspnea Verified 07/09/21 13:26 Antibiotics) tobramycin [From Tobrex] Allergy Swelling Verified 07/09/21 13:26 Physical Exam Vitals: Vital Signs Temp Pulse Pulse Resp BP BP Pulse Ox 07/01/21 14:15 103.1 F H 89 18 128/87 90 L 07/01/21 13:30 102.7 F H 07/01/21 13:00 103.2 F H 16 130/77 92 L 07/01/21 12:13 98.6 F 91 14 110/79 94 L 07/01/21 08:21 93 18 119/67 97 07/01/21 07:15 98.6 F 99 18 135/75 98 Intake and Output 07/01/21 07/01/21 07/01/21 06:59 14:59 22:59 Intake Total 90 Balance 90 Intake: Oral 90 Other: # Voids 0 Weight 88.451 kg GENERAL DESCRIPTION: An elderly female lying in bed, no distress. No tachypnea or accessory muscle of respiration use. HEENT: Shows Pallor , no scleral icterus. Oral mucous membrane is dry. No pharyngeal erythema or thrush NECK: Trachea central, no thyromegaly. LUNGS: Unlabored breathing. Decreased pulses on the base. No wheeze or crackle. HEART: S1, S2, regular rate and rhythm. No loud murmur ABDOMEN: Soft, no tenderness , guarding or rigidity, no organomegaly EXTREMITIES: No edema of feet. SKIN: No rash, no masses palpable. NEUROLOGICAL: The patient is awake, alert, oriented x3, mood and affect normal. No neck rigidity Results CBC & Chem 7: 07/07/21 06:17 07/07/21 06:17 Labs: Abnormal Lab Results - Last 24 Hours (Table) 07/01/21 07/01/21 07/01/21 Range/Units 07:52 07:52 09:46 Lymphocytes # 0.5 L (1.0-4.8) k/uL ESR 28 H (0-20) mm/hr Glucose 169 H (74-99) mg/dL C-Reactive Protein 5.7 H (<1.0) mg/dL Urine Protein Trace H (Negative) Urine Blood Trace H (Negative) Urine Mucus Rare H (None) /hpf Assessment and Plan (1) Altered mental status Status: Acute Code(s): R41.82 - ALTERED MENTAL STATUS, UNSPECIFIED SNOMED Code(s): 646919738 (2) Fever Status: Acute Code(s): R50.9 - FEVER, UNSPECIFIED SNOMED Code(s): 745891387 Plan: 1patient presented to hospital with generalized body aches fever this patient did have some headache and photophobia but no neck rigidity patient did not have an elevated white count underlying meningitis/encephalitis less likely bilateral excluded. 2patient was noticed to have mild tenderness to left lower quadrant area and could be the source of her fever. 3we will wait for the LP to be completed and we will check inflammatory mar kers. 4obtain CT abdomen pelvis with contrast to rule out any intra-abdominal pathology. 5continue with Rocephin while awaiting further work-up to be completed. We will follow on clinical condition and cultures to further adjust medication if needed Thank you for this consultation will follow this patient along with you Time with Patient: Greater than 30
[2021-07-01] MEDS: INSULIN ASPART (NovoLOG) 100 UNIT/ML VIAL SQ SCH (21:49)
[2021-07-01] MEDS: SODIUM CHLORIDE 0.9% 1,000 ML IV SCH (22:02)
--- NOTE | 2021-07-01 22:33 | P.HPIM ---
History of Present Illness H&P Date: 07/01/21 Chief Complaint: Bone pain 76-year-old female with a known history of hypertension, hyperlipidemia, diabetes type 2 diet controlled, history of CVA/TIA with mild residual vision issues presents to ER with the complaints of bone pain and altered mental status. Patient was seen by her primary care physician due to ear infection and was started on Augmentin and Flonase. Patient did take Flonase once on Saturday and started. Pain in her back and legs and hips and arms. Patient did not take any medications after that. Yesterday she felt okay and this morning patient started having headache and also seems confused as per her and also states that she is not sleeping. She has not slept last night. Patient has been afebrile at home. No focal weakness. No slurred speech. Otherwise patient has been having very slow speech and mild aphasia. No complaints of chest pain or shortness of breath. Patient was complaining of some abdominal discomfort. No diarrhea. No nausea or vomiting. Denied any neck stiffness or photophobia. CT head showed no acute intracranial hemorrhage or midline shift. There is mild diffuse age-related cerebral atrophy and chronic small vessel ischemic changes redemonstrated. No significant change from prior CT. EKG showed sinus rhythm. Patient became febrile this afternoon with T-max 103.2. COVID-19, influenza and RSV not detected. Laboratory data showed WBC 8.3 hemoglobin 13.7 and platelets 183 ESR 28 Sodium 137 potassium 3.9 chloride 102 bicarb is 27 BUN 13 and creatinine 0.9 blood sugar is 169 Liver enzymes are not elevated Urinalysis is negative for infection UDS negative. Review of Systems Constitutional: Patient does have fever. No chills generalized body aches and weakness. Abdomen: Patient denied nausea vomiting and diarrhea. Patient does complain of lower abdominal pain. Cardiovascular: Patient denies any chest pain or short of breath no palpitations. Respiratory: patient denied any cough or sputum production. No shortness of breath Neurologic: Patient denied any numbness or tingling headache. slow speech. Musculoskeletal: Patient denies any complaints of joint swelling or deformity. Skin: Negative Psychiatric: Negative Endocrine: No heat or cold intolerance. No recent weight gain. Genitourinary: No dysuria or hematuria. All other 14 point ROS negative except the above. Past Medical History Past Medical History: CVA/TIA, Diabetes Mellitus, Hyperlipidemia, Hypertension, Osteoarthritis (OA) Additional Past Medical History / Comment(s): diet controled diabetic, checks bs occ, takes no meds. cataracats,bladder infection History of Any Multi-Drug Resistant Organisms: None Reported Past Surgical History: Adenoidectomy, Cholecystectomy, Tubal Ligation Additional Past Surgical History / Comment(s): cysts removed from face Past Anesthesia/Blood Transfusion Reactions: No Reported Reaction Additional Past Anesthesia/Blood Transfusion Reaction / Comment(s): clausterphobia Past Psychological History: No Psychological Hx Reported Smoking Status: Never smoker Past Alcohol Use History: Occasional Additional Past Alcohol Use History / Comment(s): started smoking at age 13 1/2 ppd off and on then quit age 32 Past Drug Use History: None Reported - Past Family History Father Additional Family Medical History / Comment(s): from "hardening of the arteries" Mother Family Medical History: CVA/TIA, Myocardial Infarction ([place]) Medications and Allergies Home Medications Medication Instructions Recorded Confirmed Type lisinopriL [Zestril] 10 mg PO HS 10/05/15 07/01/21 History Atorvastatin Calcium [Lipitor] 20 mg PO HS 11/04/20 07/01/21 History Amoxicillin/Potassium Clav 2 tab PO BID 07/01/21 07/01/21 History [Augmentin Xr 1,000-62.5 Tab] Fluticasone Nasal [place] [Flonase 1 - 2 spray EA NOSTRIL DAILY 07/01/21 07/01/21 History Nasal [place]] Allergies Allergy/AdvReac Type Severity Reaction Status Date / Time neomycin Allergy Rash/Hives Verified 07/01/21 12:17 Sulfa (Sulfonamide Allergy Dyspnea Verified 07/01/21 12:17 Antibiotics) tobramycin [From Tobrex] Allergy Swelling Verified 07/01/21 12:17 Physical Exam Vitals: Vital Signs Temp Pulse Pulse Resp BP BP Pulse Ox 07/01/21 14:15 103.1 F H 89 18 128/87 90 L 07/01/21 13:30 102.7 F H 07/01/21 13:00 103.2 F H 16 130/77 92 L 07/01/21 12:13 98.6 F 91 14 110/79 94 L 07/01/21 08:21 93 18 119/67 97 07/01/21 07:15 98.6 F 99 18 135/75 98 Intake and Output 07/01/21 07/01/21 07/01/21 06:59 14:59 22:59 Intake Total 90 Balance 90 Intake: Oral 90 Other: # Voids 0 Weight 88.451 kg PHYSICAL EXAMINATION: Patient is lying in the bed comfortably, no acute distress, awake alert and oriented.. Lethargic and weak. HEENT: Normocephalic. Neck is supple. Pupils reactive. Nostrils clear. Oral cavity is moist. Neck reveals no JVD, carotid bruits, or thyromegaly. CHEST EXAMINATION: Trachea is central. Symmetrical expansion. Lung bell clear to auscultation and percussion. CARDIAC: Normal S1, S2 with no gallops. No murmurs ABDOMEN: Soft. Bowel sounds normal. No organomegaly. No abdominal bruits. Extremities: reveal no edema. No clubbing or cyanosis Neurologically awake, alert, oriented x3 with well-coordinated movements. Patient does have slow speech. No focal deficits noted Skin: No rash or skin lesions. Psychiatric: Cooperative. Nonsuicidal Musculoskeletal: No joint swelling or deformity. Normal range of motion. Results CBC & Chem 7: 07/01/21 07:52 07/01/21 07:52 Labs: Abnormal Lab Results - Last 24 Hours (Table) 07/01/21 07/01/21 07/01/21 Range/Units 07:52 07:52 09:46 Lymphocytes # 0.5 L (1.0-4.8) k/uL ESR 28 H (0-20) mm/hr Glucose 169 H (74-99) mg/dL C-Reactive Protein 5.7 H (<1.0) mg/dL Urine Protein Trace H (Negative) Urine Blood Trace H (Negative) Urine Mucus Rare H (None) /hpf Thrombosis Risk Factor Assmnt - DVT/VTE Prophylaxis DVT/VTE Prophylaxis: Pharmacologic Prophylaxis ordered - Choose All That Apply Any of the Below Risk Factors Present?: Yes Each Factor Represents 1 point: Obesity (BMI >25) Other Risk Factors: Yes Each Risk Factor Represents 3 Points: Age 75 years or older Thrombosis Risk Factor Assessment Total Risk Factor Score: 4 Thrombosis Risk Factor Assessment Level: Moderate Risk Assessment and Plan Assessment: Generalized body aches and fever with T-max of 103 F. Possible acute viral illness. Due to altered mental status and new onset speech difficulty rule out encephalitis/meningitis. Left ear infection and took antibiotic Augmentin, Flonase on Saturday. Borderline diabetes type 2 Hypertension Hyperlipidemia DVT prophylaxis Plan: Patient be continued on IV hydration with normal saline. Started on antibiotics above acyclovir and ceftriaxone. Neurology was consulted and recommended MRI of the brain and lumbar puncture. Follow-up CSF fluid analysis and culture. ID is on board as well. Continue supportive care and follow-up closely. Follow-up blood cultures. Time with Patient: Greater than 30
[2021-07-01] MEDS ORDERED: LIDOCAINE 1% INJ 10MG/ML (5 ML VIAL-PF) SQ ONE (22:59)
--- NOTE | 2021-07-01 23:16 | XR ---
EXAMINATION TYPE: XR chest 2V DATE OF EXAM: 07/01/2021 COMPARISON: 11/05/2020 HISTORY: Fever TECHNIQUE: FINDINGS: IMPRESSION: There is poor aspiration. There is mild subsegmental atelectasis at the posterior lung bases. No hear t failure seen. Heart size is fairly normal. IMPRESSION: Poor inspiration there is decreased slightly compared to old exam.
--- NOTE | 2021-07-01 23:32 | P.PCN ---
Date of Procedure: 07/01/21 Procedure(s) Performed: Preoperative diagnosis: Altered mental status Post operative diagnoses: Altered mental status Procedure= lumbar puncture Anesthesia local infiltration with lidocaine 1% 2 mL. Condition: stable Complication: none. Description of the procedure procedure risk and benefits discussed with the patient and family, consent signed. Patient and the procedure area placed in sitting position , back prepped with chlorhexidine 3 times been local infiltration of the skin and subcutaneous tissue with lidocaine 1% 2 mL for skin and subcu interstitial frustrations at L4 5 levels then 22-gauge Quincke-type needle advanced slowly at L4- 5 interlaminar space there was positive cerebrospinal fluid which was clear, no heme, no paresthesia ,total of 9 ML of clear cerebrospinal fluid collected in 4 different tubes 2-2-1/2 mL in each, then the needle removed and a Band-Aid applied and patient tolerated the procedure well without any complications.
[2021-07-02] MEDS ORDERED: VANCOMYCIN IV PER PHARMACY 1 EACH MISC MISCELLANE PRN (00:03)
[2021-07-02] MEDS ORDERED: VANCOMYCIN 1,500 MG in SODIUM CHLORIDE 0.9% 250 ML IVPB ONE (00:15)
[2021-07-02] MEDS: SODIUM CHLORIDE 0.9% 1,000 ML IV SCH ×2 (00:30→21:08)
[2021-07-02] MEDS: SODIUM CHLORIDE 0.9% IVPB SCH ×3 (00:30→17:00)
[2021-07-02] MEDS: ACYCLOVIR SODIUM IVPB SCH ×3 (00:30→17:00)
[2021-07-02] MEDS: HEPARIN SODIUM,PORCINE/PF 5,000 UNIT/0.5 ML SYRINGE SQ SCH ×4 (00:45→21:08)
[2021-07-02 00:55] LABS: Appearance,CSF Clear
[2021-07-02 00:56] LABS: CSF Tube Number 4; CSF Tube Volume 2
[2021-07-02 00:59] LABS: Glucose,CSF 68 mg/dL (40-70); Red Blood Cell,CSF 74 u/L (0-10); Total Protein,CSF 107 mg/dL (12-60)
[2021-07-02 01:00] LABS: Nucleated Cells, CSF 33 u/L (0-5)
[2021-07-02] MEDS: ACETAMINOPHEN TAB 325 MG TAB PO PRN ×3 (01:56→21:09)
[2021-07-02 02:11] LABS: Diff, Total Cells Cnt, CSF 100; Mononuclear WBC,CSF 96 %; Polynuclear WBC,CSF 4 %
[2021-07-02] MEDS ORDERED: IBUPROFEN 600 MG TAB PO STA (03:50)
[2021-07-02 07:07] LABS: Glucose,Whole Blood 107 mg/dL (75-99)
[2021-07-02 07:49] LABS: Basophils # (A) 0.1 k/uL (0-0.2); Basophils % (A) 1 %; Eosinophils # (A) 0.1 k/uL (0-0.7); Eosinophils % (A) 1 %; HCT 38.6 % (34.0-46.0); HGB 12.1 gm/dL (11.4-16.0); Lymphocytes # (A) 1.9 k/uL (1.0-4.8); Lymphocytes % (A) 21 %; MCH 28.1 pg (25.0-35.0); MCHC 31.4 g/dL (31.0-37.0); MCV 89.5 fL (80.0-100.0); Mean Platelet Volume 7.6; Monocytes # (A) 0.9 k/uL (0-1.0); Monocytes % (A) 10 %; Neutrophils # (A) 5.8 k/uL (1.3-7.7); Neutrophils % (A) 65 %; Platelet Count 153 k/uL (150-450); RBC 4.31 m/uL (3.80-5.40); RDW 12.9 % (11.5-15.5); WBC 8.8 k/uL (3.8-10.6)
[2021-07-02 08:02] LABS: ALT 17 U/L (4-34); AST 25 U/L (14-36); African American GFR (CKD) 72 (>60 ml/min/1.73 sqM); Albumin/Globulin Ratio 1.2; Alkaline Phosphatase 38 U/L (38-126); Anion Gap 5 mmol/L; Blood Urea Nitrogen 17 mg/dL (7-17); Calcium 8.3 mg/dL (8.4-10.2); Carbon Dioxide 24 mmol/L (22-30); Chloride 107 mmol/L (98-107); Globulin 2.6 g/dL; Glucose 105 mg/dL (74-99); Non-African American GFR(CKD) 63 (>60 ml/min/1.73 sqM); Potassium 3.6 mmol/L (3.5-5.1); Sodium 136 mmol/L (137-145); Total Bilirubin 0.4 mg/dL (0.2-1.3); Total Protein 5.6 g/dL (6.3-8.2)
[2021-07-02] MEDS ORDERED: SODIUM CHLORIDE 0.9% 1,000 ML IV ONE (08:06)
[2021-07-02] MEDS: INSULIN ASPART (NovoLOG) 100 UNIT/ML VIAL SQ SCH ×4 (08:13→21:03)
[2021-07-02] MEDS: IOPAMIDOL CONTRAST (ORAL USE) VIAL PO PRN ×2 (10:07→11:07)
[2021-07-02 12:10] LABS: Glucose,Whole Blood 110 mg/dL (75-99)
[2021-07-02] MEDS ORDERED: VANCOMYCIN 1,500 MG in SODIUM CHLORIDE 0.9% 250 ML IVPB SCH (14:00)
--- NOTE | 2021-07-02 14:18 | CT ---
EXAMINATION TYPE: CT abdomen pelvis w con DATE OF EXAM: 07/02/2021 HISTORY: Fever, abdominal tenderness CT DLP: 1332.20mGycm Automated Exposure Control for Dose Reduction was Utilized. CONTRAST: CT scan of the abdomen and pelvis is performed with oral and with IV Contrast, patient injected with 100 ml mL of Isovue 300. COMPARISON: CT abdomen and pelvis November 05, 2020 FINDINGS: LUNG BASES: Posterior bibasilar consolidations and/or atelectasis. LIVER/GB: Gallbladder not seen and is presumed surgically absent. PANCREAS: No significant abnormality is seen. SPLEEN: No significant abnormality is seen. ADRENALS: Stable 2.9 cm left adrenal mass. Hounsfield units less than 10 and prior noncontrast study consistent with benign lipid rich adenoma. KIDNEYS: Symmetric cortical medullary uptake and excretion without hydronephrosis seen bilaterally. BOWEL: Moderate to large size hiatal hernia or intrathoracic stomach with abnormal twisting is redemo nstrated. Oral contrast reaches the level of the splenic flexure. No suspicious small or large bowel dilatation is seen. Diverticula throughout the mid to distal colon is redemonstrated. No convincing C T evidence for acute diverticulitis. UTERUS/ADNEXA: Anteverted uterus. LYMPH NODES: No greater than 1cm abdominal or pelvic lymph nodes are appreciated. OSSEOUS STRUCTURES: Mild disc space narrowing lumbosacral junction. OTHER: [id number] calcified plaque of the aorta extends into branch vessels. Focal fat strandin g and subcutaneous air in the anterior abdominal wall overlying the left pelvis likely from subcutane ous medicine injection. IMPRESSION: Prominent mid to distal colonic diverticulosis without convincing CT evidence for acute d iverticulitis on current study. No acute finding clearly seen to account for patient's symptoms of fe patricia and abdominal tenderness.
[2021-07-02 17:17] LABS: Glucose,Whole Blood 94 mg/dL (75-99)
--- NOTE | 2021-07-02 17:34 | P.PN ---
Subjective Progress Note Date: 07/02/21 Principal diagnosis: Fever and possible encephalitis Patient is a 76-year-old female presented to the hospital with generalized body aches and fever and some mental status changes in this patient who is status post LP with elevated protein and normal glucose elevated white count concerning for encephalitis. On today's evaluation that is 07/02/2021, the patient is afebrile, patient is feeling slightly better today the patient headache has decreased in intensity with Tylenol no nausea no vomiting no abdominal pain no diarrhea no urinary symptoms Objective - Vital Signs Vital signs: Vital Signs Temp 97.6 F 07/02/21 15:00 Pulse 78 07/02/21 15:00 Resp 18 07/02/21 15:00 BP 119/71 07/02/21 15:00 Pulse Ox 93 L 07/02/21 15:00 Intake & Output 07/01/21 07/02/21 07/02/21 18:59 06:59 18:59 Intake Total 90 600 Output Total 800 1126 Balance 90 -200 -1126 Weight 88.451 kg Intake: Intake, IV Titration 600 Amount Acyclovir Sodium 700 mg 250 In Sodium Chloride 0.9% 250 ml @ 270 mls/hr IVPB Q8HR [facility] Rx#:[id number] Vancomycin 1,500 mg In 250 Sodium Chloride 0.9% 250 ml @ 125 mls/hr IVPB Q16H [facility] Rx#:[id number] cefTRIAXone 2 gm In 100 Sodium Chloride 0.9% 50 ml @ 100 mls/hr IVPB Q12HR [facility] Rx#:[id number] Oral 90 Output: Urine 800 150 Straight 800 Post Void Residual 976 Other: # Voids 0 - Exam GENERAL DESCRIPTION: An elderly female lying in bed in no distress RESPIRATORY SYSTEM: Unlabored breathing , decreased breath sounds at bases HEART: S1 S2 regular rate and rhythm , ABDOMEN: Soft , no tenderness EXTREMITIES: No edema feet - Labs CBC & Chem 7: 07/02/21 07:30 07/02/21 07:30 Labs: Abnormal Lab Results - Last 24 Hours (Table) 07/01/21 07/01/21 07/01/21 Range/Units 21:08 21:23 23:40 Sodium (137-145) mmol/L Glucose (74-99) mg/dL POC Glucose (mg/dL) 122 H (75-99) mg/dL Calcium (8.4-10.2) mg/dL Total Protein (6.3-8.2) g/dL Albumin (3.5-5.0) g/dL Procalcitonin 0.11 H (0.02-0.09) ng/mL CSF RBC 74 H (0-10) u/L CSF Tot Nucleated Cells 33 H* (0-5) u/L CSF Total Protein 107 H (12-60) mg/dL 07/02/21 07/02/21 07/02/21 Range/Units 07:05 07:30 12:06 Sodium 136 L (137-145) mmol/L Glucose 105 H (74-99) mg/dL POC Glucose (mg/dL) 107 H 110 H (75-99) mg/dL Calcium 8.3 L (8.4-10.2) mg/dL Total Protein 5.6 L (6.3-8.2) g/dL Albumin 3.0 L (3.5-5.0) g/dL Procalcitonin (0.02-0.09) ng/mL CSF RBC (0-10) u/L CSF Tot Nucleated Cells (0-5) u/L CSF Total Protein (12-60) mg/dL Microbiology - Last 24 Hours (Table) 07/01/21 23:40 CSF Gram Stain - Preliminary Cerebral Spinal Fluid CSF Culture - Preliminary Assessment and Plan (1) Fever Current Visit: Yes Status: Acute Code(s): R50.9 - FEVER, UNSPECIFIED SNOMED Code(s): 777247098 Plan: 1patient presented to hospital with generalized body aches fever this patient did have some headache and photophobia but no neck rigidity patient did not have an elevated white count , patient chest x-ray was negative for pneumonia urine is negative patient did have a healthy with mildly elevated protein white count is mildly elevated CSF glucose is normal likely encephalitis possibly viral not behaving as bacterial meningitis the patient do not have any other obvious focus of infection with negative CT of abdominal pelvis, patient to continue with the acyclovir while waiting for HSV DNA by PCR to be completed discontinue Rocephin and vancomycin Time with Patient: Greater than 30
[2021-07-02 20:52] LABS: Glucose,Whole Blood 103 mg/dL (75-99)
[2021-07-02] MEDS: ATORVASTATIN 20 MG TAB PO SCH (21:08)
[2021-07-03] MEDS: SODIUM CHLORIDE 0.9% IVPB SCH ×3 (00:41→15:14)
[2021-07-03] MEDS: ACYCLOVIR SODIUM IVPB SCH ×3 (00:41→15:14)
[2021-07-03 07:34] LABS: Glucose,Whole Blood 101 mg/dL (75-99)
[2021-07-03] MEDS: ACETAMINOPHEN TAB 325 MG TAB PO PRN ×2 (07:34→15:11)
[2021-07-03] MEDS: HEPARIN SODIUM,PORCINE/PF 5,000 UNIT/0.5 ML SYRINGE SQ SCH ×3 (07:35→20:12)
[2021-07-03] MEDS: INSULIN ASPART (NovoLOG) 100 UNIT/ML VIAL SQ SCH ×4 (07:35→20:13)
--- NOTE | 2021-07-03 08:30 | P.PN ---
Subjective Principal diagnosis: Altered mental status with probable viral encephalitis The patient is admitted secondary to altered mental status. Lumbar puncture did show white cells indicative of possible viral encephalitis. We are having d ifficulty getting IV access. PICC line will be instituted secondary to inability to get midline. Appreciate infectious disease Objective - Vital Signs Vital signs: Vital Signs Temp 103 F H 07/03/21 07:00 Pulse 94 07/03/21 07:00 Resp 20 07/03/21 07:00 BP 126/76 07/03/21 07:00 Pulse Ox 90 L 07/03/21 07:00 FiO2 Intake & Output 07/02/21 07/03/21 07/03/21 18:59 06:59 18:59 Intake Total 118 Output Total 1826 150 Balance -1708 -150 Intake: Oral 118 Output: Urine 850 150 Straight 700 Post Void Residual 976 Other: Voiding Method Toilet # Voids 4 # Bowel Movements 1 - Constitutional General appearance: Present: average body habitus - EENT Eyes: Absent: abnormal pupil - Neck Neck: Absent: lymphadenopathy - Respiratory Respiratory: bilateral: CTA - Cardiovascular Rhythm: regular Heart sounds: normal: S1, S2 Abnormal Heart Sounds: Absent: S3 Gallop - Gastrointestinal General gastrointestinal: Present: soft. Absent: tenderness - Labs CBC & Chem 7: 07/02/21 07:30 07/03/21 06:33 Labs: Abnormal Lab Results - Last 24 Hours (Table) 07/01/21 07/02/21 07/02/21 Range/Units 21:23 12:06 20:50 POC Glucose (mg/dL) 110 H 103 H (75-99) mg/dL Procalcitonin 0.11 H (0.02-0.09) ng/mL 07/03/21 Range/Units 07:30 POC Glucose (mg/dL) 101 H (75-99) mg/dL Procalcitonin (0.02-0.09) ng/mL Microbiology - Last 24 Hours (Table) 07/01/21 23:40 CSF Gram Stain - Preliminary Cerebral Spinal Fluid CSF Culture - Preliminary 07/01/21 16:24 Blood Culture - Preliminary Blood No Growth after 24 hours Assessment and Plan (1) Viral encephalitis Current Visit: Yes Status: Acute Code(s): A86 - UNSPECIFIED VIRAL ENCEPHALITIS SNOMED Code(s): 95865623 (2) Altered mental status Current Visit: Yes Status: Acute Code(s): R41.82 - ALTERED MENTAL STATUS, UNSPECIFIED SNOMED Code(s): 732069309 Plan: Obtain IV access. Question physical therapy and neurology for gait weakness. Check CBC and CMP in a.m. See orders otherwise.
--- NOTE | 2021-07-03 09:24 | P.PN ---
Subjective Progress Note Date: 07/02/21 Patient was seen for a follow-up. Patient's mentation is remarkably improved. Her speech is fluent. Patient states that the headaches comes and goes, not bad. At this moment there is no headache. She rates her headache 5/10 minute comes. No more 9-10/10 headaches anymore. Denies any pain in her back, or leg pain. She is doing remarkably better. Patient's and other family members were also present. Patient tolerating medications well. Objective - Vital Signs Vital signs: Vital Signs Temp 97.6 F 07/02/21 09:30 Pulse 69 07/02/21 10:30 Resp 18 07/02/21 08:00 BP 108/69 07/02/21 10:30 Pulse Ox 91 L 07/02/21 07:00 Intake & Output 07/01/21 07/02/21 07/02/21 18:59 06:59 18:59 Intake Total 90 600 Output Total 800 424 Balance 90 -200 -424 Weight 88.451 kg Intake: Intake, IV Titration 600 Amount Acyclovir Sodium 700 mg 250 In Sodium Chloride 0.9% 250 ml @ 270 mls/hr IVPB Q8HR [facility] Rx#:[id number] Vancomycin 1,500 mg In 250 Sodium Chloride 0.9% 250 ml @ 125 mls/hr IVPB Q16H [facility] Rx#:[id number] cefTRIAXone 2 gm In 100 Sodium Chloride 0.9% 50 ml @ 100 mls/hr IVPB Q12HR [facility] Rx#:[id number] Oral 90 Output: Urine 800 Straight 800 Post Void Residual 424 Other: # Voids 0 - Exam Patient's mental status, speech and language functions normal. Muscle strength is normal. No ataxia. - Labs CBC & Chem 7: 07/02/21 07:30 07/03/21 06:33 Labs: Abnormal Lab Results - Last 24 Hours (Table) 07/01/21 07/01/21 07/01/21 Range/Units 21:08 21:23 23:40 Sodium (137-145) mmol/L Glucose (74-99) mg/dL POC Glucose (mg/dL) 122 H (75-99) mg/dL Calcium (8.4-10.2) mg/dL Total Protein (6.3-8.2) g/dL Albumin (3.5-5.0) g/dL Procalcitonin 0.11 H (0.02-0.09) ng/mL CSF RBC 74 H (0-10) u/L CSF Tot Nucleated Cells 33 H* (0-5) u/L CSF Total Protein 107 H (12-60) mg/dL 07/02/21 07/02/21 07/02/21 Range/Units 07:05 07:30 12:06 Sodium 136 L (137-145) mmol/L Glucose 105 H (74-99) mg/dL POC Glucose (mg/dL) 107 H 110 H (75-99) mg/dL Calcium 8.3 L (8.4-10.2) mg/dL Total Protein 5.6 L (6.3-8.2) g/dL Albumin 3.0 L (3.5-5.0) g/dL Procalcitonin (0.02-0.09) ng/mL CSF RBC (0-10) u/L CSF Tot Nucleated Cells (0-5) u/L CSF Total Protein (12-60) mg/dL Microbiology - Last 24 Hours (Table) 07/01/21 23:40 CSF Gram Stain - Preliminary Cerebral Spinal Fluid CSF Culture - Preliminary Assessment and Plan Assessment: * Acute febrile illness of 3 days duration with headache, neck and back pain, with new onset speech difficulty, generalized weakness and difficulty walking. Rule out herpes encephalitis, rule out meningitis/encephalitis. * Borderline diabetes * Hypertension * Hyperlipidemia Plan: * Patient underwent lumbar puncture yesterday. CSF showed was colorless and clear. Total WBC 33 with 96% monocytes and 4% polynuclear cells. RBCs 74, CSF protein 107 and glucose 68. CSF picture suggestive of a viral encephalitis. Rule out herpes encephalitis. Continue acyclovir. Ceftriaxone and vancomycin discontinued by ID. * MRI of the brain with and without contrast normal. No abnormal signals noticed. * Infectious disease input appreciated. * Loo virus PCR negative. Influenza screen and RSV negative. * DVT prophylaxis. * Dr. Denys Vazquez will resume neurology service in the morning.
--- NOTE | 2021-07-03 09:50 | P.PN ---
Subjective Progress Note Date: 07/02/21 76-year-old female with a known history of hypertension, hyperlipidemia, diabetes type 2 diet controlled, history of CVA/TIA with mild residual vision issues presents to ER with the complaints of bone pain and altered mental status. Patient was seen by her primary care physician due to ear infection and was started on Augmentin and Flonase. Patient did take Flonase once on Saturday and started. Pain in her back and legs and hips and arms. Patient did not take any medications after that. Yesterday she felt okay and this morning patient started having headache and also seems confused as per her and also states that she is not sleeping. She has not slept last night. Patient has been afebrile at home. No focal weakness. No slurred speech. Otherwise patient has been having very slow speech and mild aphasia. No complaints of chest pain or shortness of breath. Patient was complaining of some abdominal discomfort. No diarrhea. No nausea or vomiting. Denied any neck stiffness or photophobia. CT head showed no acute intracranial hemorrhage or midline shift. There is mild diffuse age-related cerebral atrophy and chronic small vessel ischemic changes redemonstrated. No significant change from prior CT. EKG showed sinus rhythm. Patient became febrile this afternoon with T-max 103.2. COVID-19, influenza and RSV not detected. Laboratory data showed WBC 8.3 hemoglobin 13.7 and platelets 183 ESR 28 Sodium 137 potassium 3.9 chloride 102 bicarb is 27 BUN 13 and creatinine 0.9 bl ood sugar is 169 Liver enzymes are not elevated Urinalysis is negative for infection UDS negative. 07/02/21 Patient is currently in the medical floor. Awake alert and oriented. Patient has been febrile overnight with T-max 10 3F. Currently denied any complaints of chest pain or shortness of breath. No neck stiffness or headache. Speech seems to be better today. Otherwise patient is being continued on broad- spectrum antifungals in the form of ceftriaxone, vancomycin was added last night and also on acyclovir.. . patient underwent lumbar puncture. Fluid analysis is pending. Follow up culture report. Blood cultures have been negative [place]. Laboratory data showed WBC 8.8 hemoglobin 12.1 and platelets 153 Sodium 136 potassium 20 once his chloride 107 bicarb is 24 BUN 17 and creatinine 0.9 and calcium 8.3. Lactic acid level came down to 1.0. Next pro-calcitonin was 0.11 CSF analysis showed RBC and 74, nucleated cells 33 and total protein is 107. Current medications reviewed. Objective - Vital Signs Vital signs: Vital Signs Temp 100.5 F H 07/03/21 09:30 Pulse 94 07/03/21 07:00 Resp 20 07/03/21 07:00 BP 126/76 07/03/21 07:00 Pulse Ox 90 L 07/03/21 07:00 FiO2 Intake & Output 07/02/21 07/03/21 07/03/21 18:59 06:59 18:59 Intake Total 118 Output Total 1826 150 Balance -1708 -150 Intake: Oral 118 Output: Urine 850 150 Straight 700 Post Void Residual 976 Other: Voiding Method Toilet Toilet # Voids 4 1 # Bowel Movements 1 1 - Exam PHYSICAL EXAMINATION: Patient is lying in the bed comfortably, no acute distress, awake alert and oriented.. HEENT: Normocephalic. Neck is supple. Pupils reactive. Nostrils clear. Oral cavity is moist. Neck reveals no JVD, carotid bruits, or thyromegaly. CHEST EXAMINATION: Trachea is central. Symmetrical expansion. Lung bell clear to auscultation and percussion. CARDIAC: Normal S1, S2 with no gallops. No murmurs ABDOMEN: Soft. Bowel sounds normal. No organomegaly. No abdominal bruits. Extremities: reveal no edema. No clubbing or cyanosis Neurologically awake, alert, oriented x3 with well-coordinated movements. No focal deficits noted Skin: No rash or skin lesions. Psychiatric: Coperative. Nonsuicidal Musculoskeletal: No joint swelling or deformity. Normal range of motion. - Labs CBC & Chem 7: 07/02/21 07:30 07/03/21 06:33 Labs: Abnormal Lab Results - Last 24 Hours (Table) 07/01/21 07/02/21 07/02/21 Range/Units 21:23 12:06 20:50 POC Glucose (mg/dL) 110 H 103 H (75-99) mg/dL Procalcitonin 0.11 H (0.02-0.09) ng/mL 07/03/21 Range/Units 07:30 POC Glucose (mg/dL) 101 H (75-99) mg/dL Procalcitonin (0.02-0.09) ng/mL Microbiology - Last 24 Hours (Table) 07/01/21 23:40 CSF Gram Stain - Preliminary Cerebral Spinal Fluid CSF Culture - Preliminary 07/01/21 16:24 Blood Culture - Preliminary Blood No Growth after 24 hours Assessment and Plan Assessment: Generalized body aches and fever with T-max of 103 F. Possible acute viral illness. Due to altered mental status and new onset speech possible viral encephalitis/meningitis. Left ear infection and took antibiotic Augmentin, Flonase on Saturday. Borderline diabetes type 2 Hypertension Hyperlipidemia DVT prophylaxis Plan: Patient be continued on IV hydration with normal saline. Started on antibiotics above acyclovir and ceftriaxone and vancomycin. Ceftriaxone and vancomycin has been discontinued. Continue with acyclovir at this time. Follow-up herpes PCR in the CSF. Neurology and ID on board.. Blood cultures negative. Follow-up CSF cultures. Continue supportive care and follow-up closely. Follow-up blood cultures. Time with Patient: Greater than 30
[2021-07-03] MEDS ORDERED: LIDOCAINE 1% INJ 10MG/ML (5 ML VIAL-PF) SQ ONE ×2 (10:03→10:06)
--- NOTE | 2021-07-03 10:22 | P.PN ---
Subjective Progress Note Date: 07/03/21 I am seeing the patient for the first time for neurological management. Please refer to Dr. Storm's note for further details. It seems the patient has headache over the parietal/frontal region and stated th at her headache is somewhat improving. Headaches are intermittent and can range from 3-6/10, has some photophobia. Denies phonophobia, nausea or vomiting. Patient had CSF study on 07/01/2021: clear, colorless, rbc 74, nucleated cells 33, glucose 68, total protein 107. Pending comprehensive viral study. Patient is on IV Acyclovir. I.D. is on board and they feel more viral encephalitis and not bacterial meningitis. Objective - Vital Signs Vital signs: Vital Signs Temp 100.5 F H 07/03/21 09:30 Pulse 94 07/03/21 07:00 Resp 20 07/03/21 07:00 BP 126/76 07/03/21 07:00 Pulse Ox 90 L 07/03/21 07:00 FiO2 Intake & Output 07/02/21 07/03/21 07/03/21 18:59 06:59 18:59 Intake Total 118 Output Total 1826 150 Balance -1708 -150 Intake: Oral 118 Output: Urine 850 150 Straight 700 Post Void Residual 976 Other: Voiding Method Toilet Toilet # Voids 4 1 # Bowel Movements 1 1 - Exam GENERAL: The patient is lying in bed and is in minimal to mild acute distress. NEUROLOGICAL: Higher mental function: The patient is awake, alert, oriented to self, place and time. Patient is following commands. No aphasia and no neglect. Cranial nerves: The pupils are round, equal and reactive to light and accommodation. Visual bell are full to confrontation throughout. Extraocular movement is intact no nystagmus is noted. Facial sensation is normal to touch throughout. The facial strength is normal throughout. Tongue is midline and moved [id number] without any difficulty. No dysarthria is noted. Shoulder shrug is normal bilaterally. Motor: The strength is 5 over 5 throughout uppers while lowers are 3-4/5. Decrease tone in lowers while uppers Normal tone and bulk. Cerebellum: Normal finger to nose bilaterally. Sensation: Sensation is normal to touch throughout. - Labs CBC & Chem 7: 07/02/21 07:30 07/03/21 06:33 Labs: Abnormal Lab Results - Last 24 Hours (Table) 07/02/21 07/02/21 07/03/21 Range/Units 12:06 20:50 07:30 POC Glucose (mg/dL) 110 H 103 H 101 H (75-99) mg/dL Microbiology - Last 24 Hours (Table) 07/01/21 23:40 CSF Gram Stain - Preliminary Cerebral Spinal Fluid CSF Culture - Preliminary 07/01/21 16:24 Blood Culture - Preliminary Blood No Growth after 24 hours Assessment and Plan Assessment: * Acute febrile illness of 3 days duration with headache, neck and back pain, with new onset speech difficulty, generalized weakness and difficulty walking. Seems more viral encepahlitis (with CSF nucleated cells of 33). Rule out herpes encephalitis. * Borderline diabetes * Hypertension * Hyperlipidemia Plan: * Patient underwent lumbar puncture on 07/01/21. CSF showed was colorless and clear. Total WBC 33 with 96% monocytes and 4% polynuclear cells. RBCs 74, CSF protein 107 and glucose 68. CSF picture suggestive of a viral encephalitis. Rule out herpes encephalitis. Continue acyclovir. Ceftriaxone and vancomycin discontinued by ID. * MRI of the brain with and without contrast normal. No abnormal signals noticed. * I ordered MRI Lumbar spine since patient complaining of lower back pain with leg weakness. * Infectious disease input appreciated. * Loo virus PCR negative. Influenza screen and RSV negative. * DVT prophylaxis. The plan is discussed with the patient. Denys Vazquez M.D. Neuro-Hospitalist. Time with Patient: Less than 30
--- NOTE | 2021-07-03 11:24 | IR ---
EXAMINATION TYPE: IR cvc insert >=5 years DATE OF EXAM: 07/03/2021 COMPARISON: NONE CLINICAL HISTORY: Encephalitis Needs long-term intravenous access for antibiotics. PROCEDURE: Hand hygiene obtained with soap and water and alcohol-based hand rub. After informed consent, the skin overlying the left basilic vein was localized with ultrasound and no magui to be compressible and patent. An ultrasound image was obtained and submitted on the patient's c nesbitt. The overlying skin was prepped and draped and Lidocaine was used for local anesthesia. A skin jose d was made with a scalpel. Access was gained to the vein under ultrasound guidance with a 21 gau ge needle and a 0.018 inch wire was advanced. Access site was dilated with Peel-Away sheath and cath eter tailored to the appropriate length and advanced such that the distal tip is at the cavoatrial ju nction. Spot image was obtained verifying placement. Catheter was fixed to the skin and a sterile d ressing was placed following hemostasis. Catheter was aspirated and flushed with saline. Patient wa s discharged in stable condition without complication.Maximal barrier technique is utilized. Ultraso und image is documented on the chart. Ultrasound used with sterile technique. Fluoro time and fluoroscopic images submitted to document procedure: 10 intraoperative C-arm images, 0.1 minutes fluoroscopy time IMPRESSION: STATUS POST ULTRASOUND AND FLUOROSCOPIC GUIDED PICC LINE PLACEMENT, READY FOR USE. THIS PROCEDURE WAS PERFORMED BY THE UNDERSIGNED.
[2021-07-03 12:10] LABS: Glucose,Whole Blood 112 mg/dL (75-99)
[2021-07-03] MEDS: SODIUM CHLORIDE 0.9% 1,000 ML IV SCH (12:16)
--- NOTE | 2021-07-03 15:39 | MR ---
EXAMINATION TYPE: MR lumbar spine wo/w con DATE OF EXAM: 07/03/2021 COMPARISON: CT 07/02/2021 HISTORY: Low back pain. TECHNIQUE: Multiplanar, multisequence images of the lumbar spine were acquired without and with 9 mL intravenous Gadavist gadolinium contrast. There is motion on exam. T12-L1 shows a posterior circumferential disc bulge causes slight anterior mass effect on the thecal sac. L1-L2: Normal disc appearance without desiccation. No herniation, protrusion or disc bulging. No ca nal stenosis is present. Foramina are patent bilaterally. L2-L3: Circumferential posterior disc bulge is slight anterior mass effect thecal sac. Facet arthropa thy with hypertrophy ligamentum flavum causes some posterior lateral mass effect thecal sac. L3-L4: Posterior broad-based disc bulge effaces the anterior thecal sac. Some arthropathy with hypert rophy ligamentum flavum causes posterior lateral mass effect on the thecal sac. Circumferential exten desmond endplate disc complex encroaches minimally on the inferior aspect of the foramina. There is some loss of disc height signal consistent with disc desiccation and degenerative disc disease. L4-L5: Normal disc appearance without desiccation. No herniation, protrusion or disc bulging. No ca nal stenosis is present. Foramina are patent bilaterally. There is some facet arthropathy change pre sent. L5-S1: Hypertrophic changes are present at the facets. Listhesis contributes to cause some foraminal encroachment minimally at the inferior aspect is circumferential extension endplate disc complex. No evident disc herniation. Lumbar segments are intact. No paraspinal masses are identified. Conus medullaris has a normal appe arance. There is a spinal curvature. No significant spinal stenosis. Multilevel spondylosis is presen t, is endplate discogenic marrow signal change. Anterolisthesis grade 1 L5-S1. Suspect spondylolysis at L5 is doesn't, possibly unilateral on the left. Mild enhancement along is noted at L5-S1 predominantly in the anterior and posterior aspects IMPRESSION: Degenerative disc disease and facet arthropathy, suspect spondylolysis at L5 with slight anterior bas is L5-S1.
[2021-07-03 17:27] LABS: Glucose,Whole Blood 118 mg/dL (75-99)
[2021-07-03] MEDS: ATORVASTATIN 20 MG TAB PO SCH (20:11)
[2021-07-03 20:14] LABS: Glucose,Whole Blood 124 mg/dL (75-99)
[2021-07-04] MEDS: SODIUM CHLORIDE 0.9% IVPB SCH ×3 (00:29→17:05)
[2021-07-04] MEDS: ACYCLOVIR SODIUM IVPB SCH ×3 (00:29→17:05)
[2021-07-04] MEDS: SODIUM CHLORIDE 0.9% 1,000 ML IV SCH ×2 (00:30→17:07)
[2021-07-04] MEDS: ACETAMINOPHEN TAB 325 MG TAB PO PRN ×3 (01:39→20:17)
--- NOTE | 2021-07-04 07:29 | P.PN ---
Subjective Progress Note Date: 07/03/21 Principal diagnosis: Fever and possible encephalitis Patient is a 76-year-old female presented to the hospital with generalized body aches and fever and some mental status changes in this patient who is status post LP with elevated protein and normal glucose elevated white count concerning for encephalitis. On today's evaluation that is 07/03/2021, the patient did spike another fever this morning, patient is however feeling better and he has decreased in intensity no nausea no vomiting no abdominal pain denies any chest pain shortness of breath or cough Objective - Vital Signs Vital signs: Vital Signs Temp 100.5 F H 07/03/21 09:30 Pulse 94 07/03/21 07:00 Resp 20 07/03/21 07:00 BP 126/76 07/03/21 07:00 Pulse Ox 90 L 07/03/21 07:00 FiO2 Intake & Output 07/02/21 07/03/21 07/03/21 18:59 06:59 18:59 Intake Total 118 Output Total 1826 150 Balance -1708 -150 Intake: Oral 118 Output: Urine 850 150 Straight 700 Post Void Residual 976 Other: Voiding Method Toilet Toilet # Voids 4 1 # Bowel Movements 1 1 - Exam GENERAL DESCRIPTION: An elderly female lying in bed in no distress RESPIRATORY SYSTEM: Unlabored breathing , decreased breath sounds at bases HEART: S1 S2 regular rate and rhythm , ABDOMEN: Soft , no tenderness EXTREMITIES: No edema feet - Labs CBC & Chem 7: 07/02/21 07:30 07/03/21 06:33 Labs: Abnormal Lab Results - Last 24 Hours (Table) 07/02/21 07/02/21 07/03/21 Range/Units 12:06 20:50 07:30 POC Glucose (mg/dL) 110 H 103 H 101 H (75-99) mg/dL Microbiology - Last 24 Hours (Table) 07/01/21 23:40 CSF Gram Stain - Preliminary Cerebral Spinal Fluid CSF Culture - Preliminary 07/01/21 16:24 Blood Culture - Preliminary Blood No Growth after 24 hours Assessment and Plan (1) Fever Current Visit: Yes Status: Acute Code(s): R50.9 - FEVER, UNSPECIFIED SNOMED Code(s): 983279269 Plan: 1patient presented to hospital with generalized body aches fever this patient did have some headache and photophobia but no neck rigidity patient did not have an elevated white count , patient chest x-ray was negative for pneumonia urine is negative patient did have a healthy with mildly elevated protein white count is mildly elevated CSF glucose is normal likely encephalitis possibly viral not behaving as bacterial meningitis the patient do not have any other obvious focus of infection with negative CT of abdominal pelvis, patient to continue with the acyclovir while waiting for HSV DNA by PCR to be completed , keeping in mind new fever will repeat the blood cultures check a CRP and a pro-calcitonin Time with Patient: Less than 30
[2021-07-04 07:37] LABS: Glucose,Whole Blood 104 mg/dL (75-99)
[2021-07-04 07:52] LABS: ALT 24 U/L (4-34); AST 39 U/L (14-36); African American GFR (CKD) 90 (>60 ml/min/1.73 sqM); Albumin 3.6 g/dL (3.5-5.0); Albumin/Globulin Ratio 1.3; Alkaline Phosphatase 39 U/L (38-126); Anion Gap 9 mmol/L; Blood Urea Nitrogen 9 mg/dL (7-17); Calcium 8.7 mg/dL (8.4-10.2); Carbon Dioxide 23 mmol/L (22-30); Chloride 106 mmol/L (98-107); Globulin 2.7 g/dL; Glucose 112 mg/dL (74-99); Non-African American GFR(CKD) 78 (>60 ml/min/1.73 sqM); Potassium 3.3 mmol/L (3.5-5.1); Sodium 138 mmol/L (137-145); Total Bilirubin 0.6 mg/dL (0.2-1.3); Total Protein 6.3 g/dL (6.3-8.2)
--- NOTE | 2021-07-04 08:30 | P.PN ---
Subjective Principal diagnosis: Altered mental status with probable viral encephalitis The patient is admitted secondary to altered mental status. Lumbar puncture did show white cells indicative of possible viral encephalitis. We are having d ifficulty getting IV access. PICC line will be instituted secondary to inability to get midline. Appreciate infectious disease input. Question need for PT. The patient can planes of weakness. Objective - Vital Signs Vital signs: Vital Signs Temp 98.4 F 07/04/21 06:40 Pulse 72 07/04/21 06:40 Resp 19 07/04/21 06:40 BP 135/80 07/04/21 06:40 Pulse Ox 95 07/04/21 06:40 FiO2 Intake & Output 07/03/21 07/04/21 07/04/21 18:59 06:59 18:59 Intake Total 118 Output Total 150 Balance 118 -150 Intake: Oral 118 Output: Urine 150 Other: Voiding Method Toilet Bedside Commode # Voids 1 1 # Bowel Movements 1 - Constitutional General appearance: Present: average body habitus - EENT Eyes: Absent: abnormal pupil - Neck Neck: Absent: lymphadenopathy - Respiratory Respiratory: bilateral: CTA - Cardiovascular Rhythm: regular Heart sounds: normal: S1, S2 Abnormal Heart Sounds: Absent: S3 Gallop - Gastrointestinal General gastrointestinal: Present: soft. Absent: tenderness - Neurologic Neurologic: Absent: CNII-XII intact - Labs CBC & Chem 7: 07/02/21 07:30 07/04/21 06:51 Labs: Abnormal Lab Results - Last 24 Hours (Table) 07/03/21 07/03/21 07/03/21 Range/Units 10:42 10:42 12:08 Potassium (3.5-5.1) mmol/L Glucose (74-99) mg/dL POC Glucose (mg/dL) 112 H (75-99) mg/dL AST (14-36) U/L C-Reactive Protein 1.70 H (0.00-0.80) mg/dL Procalcitonin 0.11 H (0.02-0.09) ng/mL 07/03/21 07/03/21 07/04/21 Range/Units 17:25 20:13 06:51 Potassium 3.3 L (3.5-5.1) mmol/L Glucose 112 H (74-99) mg/dL POC Glucose (mg/dL) 118 H 124 H (75-99) mg/dL AST 39 H (14-36) U/L C-Reactive Protein (0.00-0.80) mg/dL Procalcitonin (0.02-0.09) ng/mL 07/04/21 Range/Units 07:35 Potassium (3.5-5.1) mmol/L Glucose (74-99) mg/dL POC Glucose (mg/dL) 104 H (75-99) mg/dL AST (14-36) U/L C-Reactive Protein (0.00-0.80) mg/dL Procalcitonin (0.02-0.09) ng/mL Microbiology - Last 24 Hours (Table) 07/01/21 16:24 Blood Culture - Preliminary Blood No Growth after 48 hours 07/01/21 23:40 CSF Gram Stain - Preliminary Cerebral Spinal Fluid CSF Culture - Preliminary Assessment and Plan (1) Viral encephalitis Current Visit: Yes Status: Acute Code(s): A86 - UNSPECIFIED VIRAL ENCEPHALITIS SNOMED Code(s): 44765403 (2) Altered mental status Current Visit: Yes Status: Acute Code(s): R41.82 - ALTERED MENTAL STATUS, UNSPECIFIED SNOMED Code(s): 342056087 Plan: Obtain IV access. PT/OT for ambulation? See orders otherwise.
[2021-07-04] MEDS ORDERED: Potassium Replacement Protocol 1 EACH MISC MISCELLANE PRN (08:31)
[2021-07-04] MEDS: INSULIN ASPART (NovoLOG) 100 UNIT/ML VIAL SQ SCH ×4 (08:45→21:21)
[2021-07-04] MEDS: HEPARIN SODIUM,PORCINE/PF 5,000 UNIT/0.5 ML SYRINGE SQ SCH ×2 (08:46→17:07)
[2021-07-04 10:35] LABS: HCT 39.8 % (37.2-46.3); HGB 12.6 g/dL (12.0-15.0); MCH 27.7 pg (27.0-32.0); MCHC 31.7 g/dL (32.0-37.0); MCV 87.5 fL (80.0-97.0); NRBC Per 100 WBC 0 /100 WBCS (0.0-0.0); Platelet Count 171 X 10*3/uL (140-440); RBC 4.55 X 10*6/uL (4.10-5.20); RDW 12.8 % (11.5-14.5); WBC 8.41 X 10*3/uL (4.50-10.00)
[2021-07-04 12:22] LABS: Glucose,Whole Blood 147 mg/dL (75-99)
--- NOTE | 2021-07-04 14:03 | XR ---
EXAMINATION TYPE: XR chest 2V DATE OF EXAM: 07/04/2021 COMPARISON: Chest x-ray 07/01/2021 HISTORY: Hypoxemia and fever TECHNIQUE: Frontal and lateral views of the chest are obtained. FINDINGS: There is blunting the left costophrenic angle. Left-sided PICC line is present, distal tip the catheter courses to the level near the cavoatrial junction. Retrocardiac lucency suggests hiatal hernia. No evident pneumothorax. Cardiac mediastinal silhouette is likely stable accounting for diff erences in technique. Right hemidiaphragm remains elevated. IMPRESSION: Interval PICC line placement. Difficult to exclude basilar effusion or atelectasis, landy elate to exclude pneumonia
--- NOTE | 2021-07-04 14:59 | P.PN ---
Subjective Progress Note Date: 07/04/21 The patient is seen at bedside and is accompanied by her . She feels she is doing better compared to her initial presentation but continues to have headache over the right parietal/occiptal region but is better compared to past. She continues to have fever and Tmax is 103 on 07/03/2021 while today just past midnight was 102.2. Currently is 98.4. Objective - Vital Signs Vital signs: Vital Signs Temp 98.4 F 07/04/21 06:40 Pulse 89 07/04/21 14:00 Resp 19 07/04/21 14:00 BP 135/80 07/04/21 06:40 Pulse Ox 95 07/04/21 06:40 FiO2 Intake & Output 07/03/21 07/04/21 07/04/21 18:59 06:59 18:59 Intake Total 118 118 Output Total 150 Balance 118 -150 118 Intake: Oral 118 118 Output: Urine 150 Other: Voiding Method Toilet Bedside Commode Bedside Commode # Voids 1 1 4 # Bowel Movements 1 - Exam GENERAL: The patient is lying in bed and is in minimal to mild acute distress. NEUROLOGICAL: Higher mental function: The patient is awake, alert, oriented to self, place and time. Patient is following commands. No aphasia and no neglect. Cranial nerves: The pupils are round, equal and reactive to light and accommodation. Visual bell are full to confrontation throughout. Extraocular movement is intact no nystagmus is noted. Facial sensation is normal to touch throughout. The facial strength is normal throughout. Tongue is midline and moved [id number] without any difficulty. No dysarthria is noted. Shoulder shrug is normal bilaterally. Motor: The strength is 5 over 5 throughout uppers while lowers are 3-4/5. Decrease tone in lowers while uppers Normal tone and bulk. Cerebellum: Normal finger to nose bilaterally. Sensation: Sensation is normal to touch throughout. - Labs CBC & Chem 7: 07/04/21 06:51 07/04/21 06:51 Labs: Abnormal Lab Results - Last 24 Hours (Table) 07/03/21 07/03/21 07/03/21 Range/Units 10:42 10:42 17:25 MCHC (32.0-37.0) g/dL Potassium (3.5-5.1) mmol/L Glucose (74-99) mg/dL POC Glucose (mg/dL) 118 H (75-99) mg/dL AST (14-36) U/L C-Reactive Protein 1.70 H (0.00-0.80) mg/dL Procalcitonin 0.11 H (0.02-0.09) ng/mL 07/03/21 07/04/21 07/04/21 Range/Units 20:13 06:51 06:51 MCHC 31.7 L (32.0-37.0) g/dL Potassium 3.3 L (3.5-5.1) mmol/L Glucose 112 H (74-99) mg/dL POC Glucose (mg/dL) 124 H (75-99) mg/dL AST 39 H (14-36) U/L C-Reactive Protein (0.00-0.80) mg/dL Procalcitonin (0.02-0.09) ng/mL 07/04/21 07/04/21 Range/Units 07:35 12:20 MCHC (32.0-37.0) g/dL Potassium (3.5-5.1) mmol/L Glucose (74-99) mg/dL POC Glucose (mg/dL) 104 H 147 H (75-99) mg/dL AST (14-36) U/L C-Reactive Protein (0.00-0.80) mg/dL Procalcitonin (0.02-0.09) ng/mL Microbiology - Last 24 Hours (Table) 07/03/21 10:42 Blood Culture - Preliminary Blood No Growth after 24 hours 07/01/21 23:40 CSF Gram Stain - Preliminary Cerebral Spinal Fluid CSF Culture - Preliminary 07/01/21 16:24 Blood Culture - Preliminary Blood No Growth after 48 hours Assessment and Plan Assessment: * Acute febrile illness of 3 days duration with headache, neck and back pain, with new onset speech difficulty, generalized weakness and difficulty walking. Seems more viral encepahlitis (with CSF nucleated cells of 33). Rule out herpes encephalitis. * Borderline diabetes * Hypertension * Hyperlipidemia Plan: * Patient underwent lumbar puncture on 07/01/21. CSF showed was colorless and clear. Total WBC 33 with 96% monocytes and 4% polynuclear cells. RBCs 74, CSF protein 107 and glucose 68. CSF picture suggestive of a viral encephalitis. CSF gramin stain and culture is negative. CSF virus panel: negative. Continue acyclovir. Ceftriaxone and vancomycin discontinued by ID. * I ordered herpes 1/2 PCR. Pending crytoccocus ordered by Dr. Storm. * MRI of the brain with and without contrast normal. No abnormal signals noticed. * MRI Lumbar spine: Is reported as degenerative disc disease and facet arthropathy, suspect spondylosis at L5 with slight anterior basis L5-S1. * * Infectious disease input appreciated. * Loo virus PCR negative. Influenza screen and RSV negative. * DVT prophylaxis. The plan is discussed with the patient and her who is at bedside. Denys Vazquez M.D. Neuro-Hospitalist. Time with Patient: Less than 30
[2021-07-04 17:57] LABS: Glucose,Whole Blood 109 mg/dL (75-99)
[2021-07-04] MEDS: ATORVASTATIN 20 MG TAB PO SCH (20:18)
[2021-07-04 20:21] LABS: Glucose,Whole Blood 189 mg/dL (75-99)
[2021-07-04 20:22] LABS: Glucose,Whole Blood 189 mg/dL (75-99)
[2021-07-05] MEDS: ACYCLOVIR SODIUM IVPB SCH ×3 (00:14→15:10)
[2021-07-05] MEDS: SODIUM CHLORIDE 0.9% IVPB SCH ×3 (00:14→15:10)
[2021-07-05] MEDS: HEPARIN SODIUM,PORCINE/PF 5,000 UNIT/0.5 ML SYRINGE SQ SCH ×3 (00:15→15:11)
[2021-07-05] MEDS: SODIUM CHLORIDE 0.9% 1,000 ML IV SCH ×2 (05:43→16:39)
[2021-07-05] MEDS: INSULIN ASPART (NovoLOG) 100 UNIT/ML VIAL SQ SCH ×4 (07:17→20:50)
[2021-07-05] MEDS: ACETAMINOPHEN TAB 325 MG TAB PO PRN (07:21)
[2021-07-05 07:23] LABS: Glucose,Whole Blood 117 mg/dL (75-99)
--- NOTE | 2021-07-05 08:19 | P.PN ---
Subjective Principal diagnosis: Altered mental status with probable viral encephalitis The patient is admitted secondary to altered mental status. Lumbar puncture did show white cells indicative of possible viral encephalitis. We are having d ifficulty getting IV access. PICC line will be instituted secondary to inability to get midline. Appreciate infectious disease input. Question need for PT. States states weakness is starting to improve. Improved gait strength. Objective - Vital Signs Vital signs: Vital Signs Temp 99.1 F 07/05/21 07:27 Pulse 86 07/05/21 07:27 Resp 16 07/05/21 07:27 BP 148/83 07/05/21 07:27 Pulse Ox 94 L 07/05/21 07:27 FiO2 Intake & Output 07/04/21 07/05/21 07/05/21 18:59 06:59 18:59 Intake Total 118 Balance 118 Intake: Oral 118 Other: Voiding Method Bedside Commode Bedside Commode # Voids 1 4 1 # Bowel Movements 1 - Constitutional General appearance: Present: no acute distress - EENT Eyes: Absent: abnormal pupil - Neck Neck: Absent: lymphadenopathy - Respiratory Respiratory: bilateral: CTA - Cardiovascular Rhythm: regular Heart sounds: normal: S1, S2 Abnormal Heart Sounds: Absent: S3 Gallop - Gastrointestinal General gastrointestinal: Present: soft. Absent: tenderness - Neurologic Neurologic: Present: CNII-XII intact - Labs CBC & Chem 7: 07/04/21 06:51 07/04/21 06:51 Labs: Abnormal Lab Results - Last 24 Hours (Table) 07/04/21 07/04/21 07/04/21 Range/Units 06:51 12:20 17:55 MCHC 31.7 L (32.0-37.0) g/dL POC Glucose (mg/dL) 147 H 109 H (75-99) mg/dL 07/04/21 07/04/21 07/05/21 Range/Units 20:19 20:19 07:16 MCHC (32.0-37.0) g/dL POC Glucose (mg/dL) 189 H 189 H 117 H (75-99) mg/dL Microbiology - Last 24 Hours (Table) 07/01/21 16:24 Blood Culture - Preliminary Blood No Growth after 72 hours 07/03/21 10:42 Blood Culture - Preliminary Blood No Growth after 24 hours 07/01/21 23:40 CSF Gram Stain - Preliminary Cerebral Spinal Fluid CSF Culture - Preliminary Assessment and Plan (1) Viral encephalitis Current Visit: Yes Status: Acute Code(s): A86 - UNSPECIFIED VIRAL ENCEPHALITIS SNOMED Code(s): 82113628 (2) Altered mental status Current Visit: Yes Status: Acute Code(s): R41.82 - ALTERED MENTAL STATUS, UNSPECIFIED SNOMED Code(s): 887986436 Plan: Continue observation and slow improvement. Appreciate neurology and infectious disease input. CBC and CMP is pending. Continue therapy
[2021-07-05 10:41] LABS: HCT 38.6 % (37.2-46.3); HGB 12.4 g/dL (12.0-15.0); MCH 28.1 pg (27.0-32.0); MCHC 32.1 g/dL (32.0-37.0); MCV 87.5 fL (80.0-97.0); Mean Platelet Volume 11.8 fL (9.5-12.2); NRBC Per 100 WBC 0 /100 WBCS (0.0-0.0); Platelet Count 124 X 10*3/uL (140-440); RBC 4.41 X 10*6/uL (4.10-5.20); RDW 12.7 % (11.5-14.5); WBC 8.61 X 10*3/uL (4.50-10.00)
--- NOTE | 2021-07-05 11:19 | CDI ---
Documentation Clarification Form Date: 07/05/2021 10:40:48 AM From: Bernadette Elizabeth RN, CCDS Admit Date: 07/03/2021 12:40:00 PM Patient Name: Sofiya Bui Visit Number: [id number] Discharge Date: ATTENTION: The Clinical Documentation Specialists (CDI) and [facility] Coding Staff appreciate your assistance in clarifying documentation. Please respond to the clarification below the line at the bottom and electronically sign. The CDI & [facility] Coding staff will review the response and follow-up if needed. Please note: Queries are made part of the Legal Health Record. If you have any questions, please contact the author of this message via ITS. Dr. Ugo Storm Your patient has the documented symptom of Altered Mental Status in neurology consult on 07/01/21. Additional clarification regarding the etiology/cause of this symptom is requested. History/Risk Factors: CVA, TIA diabetes mellitus (diet controlled), Hypertension Clinical Indicators: 76-year-old female present to ED with complaints of back and headache and on neurological exam in ED showed slow speech mild aphasia. She complains of headache 9-11/20. She is currently being treated for possible viral encephalitis. 07/01 Vital signs: 135/75 99 18 98.6 98 % RA 07/01 @13:00 vital sign 130/77 16, temp. 103.2 92 % RA 07/01 Labs: WBC 8.3 Chest x-ray: Negative 07/01 CT Brain: mild diffuse age-related cerebral atrophy and chronic small vessel ischemic change redemonstrated. 07/01 Lumbar puncture: RBC 74, clear, colorless nucleated cells 33, Total Protein 107, glucose 68, 07/01 Brain MRI: No evidence of intracranial mass, acute/subacute infarct, or abnormal enhancement to suggest encephalitis. Treatment: 521 Lumbar puncture Rocephin 2 GM IVBP Q 12 HRS, 07/01-07/02 Acyclovir 750 MG IVPB Q 8 HRS 07/01 Neuro checks per protocol .9NS@75 MLS/HR IV Please clarify the etiology of the symptom of Altered Mental Status: [ ] Metabolic encephalopathy Encephalopathy due to [insert cause of encephalopathy] [ ] Other condition (please specify) [ ] Unable to determine (Template Last Revised: March 2020) Due to encephalitis, presumed to be viral, although the routine viruses tested were not identified. Thank You, MD LAWRENCE BoswellD
[2021-07-05 11:59] LABS: Glucose,Whole Blood 129 mg/dL (75-99)
[2021-07-05] MEDS: DOXYCYCLINE 100 MG CAP PO SCH ×2 (12:12→20:50)
[2021-07-05 12:19] LABS: BUN/Creat Ratio 9.74 Ratio (12.00-20.00); Globulin 2.5 g/dL (1.6-3.3)
[2021-07-05 12:20] LABS: African American GFR (CKD) 85.6 (60.0-200.0); Albumin 3.6 g/dL (3.8-4.9); Albumin/Globulin Ratio 1.4 (1.60-3.17); Anion Gap 13.3 mmol/L (10.00-18.00); Blood Urea Nitrogen 7.6 mg/dL (9.0-27.0); Calcium 8.9 mg/dL (8.7-10.3); Carbon Dioxide 20.7 mmol/L (20.0-27.5); Non-African American GFR(CKD) 73.8 (60.0-200.0); Potassium 3.3 mmol/L (3.5-5.5); Total Bilirubin 0.5 mg/dL (0.30-1.20); Total Protein 6.1 g/dL (6.2-8.2)
[2021-07-05 17:17] LABS: Glucose,Whole Blood 124 mg/dL (75-99)
--- NOTE | 2021-07-05 18:31 | P.PN ---
Subjective Progress Note Date: 07/05/21 The patient is seen at bedside and feels about the same. Temperature has been improving compared to yesterday but T max was yesterday at 19:36 of 100.3F I.D> started the patient on Doxycylcine and Ceftriaxone. Objective - Vital Signs Vital signs: Vital Signs Temp 98.1 F 07/05/21 13:49 Pulse 84 07/05/21 13:49 Resp 16 07/05/21 13:49 BP 119/71 07/05/21 13:49 Pulse Ox 95 07/05/21 13:49 FiO2 Intake & Output 07/04/21 07/05/21 07/05/21 18:59 06:59 18:59 Intake Total 118 473 Balance 118 473 Intake: Oral 118 473 Other: Voiding Method Bedside Commode Bedside Commode Bedside Commode # Voids 1 4 1 # Bowel Movements 1 - Exam GENERAL: The patient is lying in bed and is in minimal to mild acute distress. NEUROLOGICAL: Higher mental function: The patient is awake, alert, oriented to self, place and time. Patient is following commands. No aphasia and no neglect. Cranial nerves: The pupils are round, equal and reactive to light and accommodation. Visual bell are full to confrontation throughout. Extraocular movement is intact no nystagmus is noted. Facial sensation is normal to touch throughout. The facial strength is normal throughout. Tongue is midline and moved [id number] without any difficulty. No dysarthria is noted. Shoulder shrug is normal bilaterally. Motor: The strength is 5 over 5 throughout uppers while lowers are 3-4/5. Decrease tone in lowers while uppers Normal tone and bulk. Cerebellum: Normal finger to nose bilaterally. Sensation: Sensation is normal to touch throughout. - Labs CBC & Chem 7: 07/05/21 07:44 07/05/21 07:52 Labs: Abnormal Lab Results - Last 24 Hours (Table) 07/04/21 07/04/21 07/05/21 Range/Units 20:19 20:19 07:16 Plt Count (140-440) X 10*3/uL Potassium (3.5-5.5) mmol/L BUN (9.0-27.0) mg/dL BUN/Creatinine Ratio (12.00-20.00) Ratio Glucose (70-110) mg/dL POC Glucose (mg/dL) 189 H 189 H 117 H (75-99) mg/dL AST (13-35) U/L Total Protein (6.2-8.2) g/dL Albumin (3.8-4.9) g/dL Albumin/Globulin Ratio (1.60-3.17) g/dL 07/05/21 07/05/21 07/05/21 Range/Units 07:44 07:52 11:57 Plt Count 124 L (140-440) X 10*3/uL Potassium 3.3 L (3.5-5.5) mmol/L BUN 7.6 L (9.0-27.0) mg/dL BUN/Creatinine Ratio 9.74 L (12.00-20.00) Ratio Glucose 115 H (70-110) mg/dL POC Glucose (mg/dL) 129 H (75-99) mg/dL AST 36 H (13-35) U/L Total Protein 6.1 L (6.2-8.2) g/dL Albumin 3.6 L (3.8-4.9) g/dL Albumin/Globulin Ratio 1.40 L (1.60-3.17) g/dL 07/05/21 Range/Units 17:14 Plt Count (140-440) X 10*3/uL Potassium (3.5-5.5) mmol/L BUN (9.0-27.0) mg/dL BUN/Creatinine Ratio (12.00-20.00) Ratio Glucose (70-110) mg/dL POC Glucose (mg/dL) 124 H (75-99) mg/dL AST (13-35) U/L Total Protein (6.2-8.2) g/dL Albumin (3.8-4.9) g/dL Albumin/Globulin Ratio (1.60-3.17) g/dL Microbiology - Last 24 Hours (Table) 07/03/21 10:42 Blood Culture - Preliminary Blood No Growth after 48 hours 07/01/21 23:40 CSF Gram Stain - Preliminary Cerebral Spinal Fluid CSF Culture - Preliminary 07/01/21 16:24 Blood Culture - Preliminary Blood No Growth after 72 hours Assessment and Plan Assessment: * Acute febrile illness of 3 days duration with headache, neck and back pain, with new onset speech difficulty, generalized weakness and difficulty walking. Seems more viral encepahlitis (with CSF nucleated cells of 33). Rule out herpes encephalitis. * Borderline diabetes * Hypertension * Hyperlipidemia Plan: * Patient underwent lumbar puncture on 07/01/21. CSF showed was colorless and clear. Total WBC 33 with 96% monocytes and 4% polynuclear cells. RBCs 74, CSF protein 107 and glucose 68. CSF picture suggestive of a viral encephalitis. CSF gramin stain and culture is negative. CSF virus panel: negative. Continue acyclovir. She was started on Ceftriaxone 2gm every 24 hours and Doxycycline 100mg bid by I.D. Will defer medication modification to I.D. team. * I ordered herpes 1/2 PCR. Pending crytoccocus ordered by Dr. Storm. * MRI of the brain with and without contrast normal. No abnormal signals noticed. * MRI Lumbar spine: Is reported as degenerative disc disease and facet arthropathy, suspect spondylosis at L5 with slight anterior basis L5-S1. * * Infectious disease input appreciated. * Loo virus PCR negative. Influenza screen and RSV negative. * DVT prophylaxis. The plan is discussed with the patient and her nurse. Will follow-up with patient sporadically. Denys Vazquez M.D. Neuro-Hospitalist. Time with Patient: Less than 30
[2021-07-05 19:02] LABS: Glucose,Whole Blood 166 mg/dL (75-99)
[2021-07-05] MEDS: ATORVASTATIN 20 MG TAB PO SCH (20:50)
[2021-07-06] MEDS: ACETAMINOPHEN TAB 325 MG TAB PO PRN ×2 (01:32→20:59)
[2021-07-06] MEDS: ACYCLOVIR SODIUM IVPB SCH ×4 (01:33→23:46)
[2021-07-06] MEDS: SODIUM CHLORIDE 0.9% IVPB SCH ×4 (01:33→23:46)
[2021-07-06] MEDS: HEPARIN SODIUM,PORCINE/PF 5,000 UNIT/0.5 ML SYRINGE SQ SCH ×4 (01:33→23:31)
[2021-07-06 07:20] LABS: Glucose,Whole Blood 105 mg/dL (75-99)
--- NOTE | 2021-07-06 08:31 | P.PN ---
Subjective Progress Note Date: 07/04/21 Principal diagnosis: Fever and possible encephalitis Patient is a 76-year-old female presented to the hospital with generalized body aches and fever and some mental status changes in this patient who is status post LP with elevated protein and normal glucose elevated white count concerning for encephalitis. On today's evaluation that is 07/04/2021, the patient did spike another fever of 102F, patient is feeling better and headache has decreased in intensity no paras sea no vomiting no abdominal pain denies any chest pain shortness of breath or cough Objective - Vital Signs Vital signs: Vital Signs Temp 98.4 F 07/04/21 06:40 Pulse 72 07/04/21 06:40 Resp 19 07/04/21 06:40 BP 135/80 07/04/21 06:40 Pulse Ox 95 07/04/21 06:40 FiO2 Intake & Output 07/03/21 07/04/21 07/04/21 18:59 06:59 18:59 Intake Total 118 Output Total 150 Balance 118 -150 Intake: Oral 118 Output: Urine 150 Other: Voiding Method Toilet Bedside Commode # Voids 1 1 1 # Bowel Movements 1 - Exam GENERAL DESCRIPTION: An elderly female lying in bed in no distress RESPIRATORY SYSTEM: Unlabored breathing , decreased breath sounds at bases HEART: S1 S2 regular rate and rhythm , ABDOMEN: Soft , no tenderness EXTREMITIES: No edema feet - Labs CBC & Chem 7: 07/05/21 07:44 07/05/21 07:52 Labs: Abnormal Lab Results - Last 24 Hours (Table) 07/03/21 07/03/21 07/03/21 Range/Units 10:42 10:42 12:08 Potassium (3.5-5.1) mmol/L Glucose (74-99) mg/dL POC Glucose (mg/dL) 112 H (75-99) mg/dL AST (14-36) U/L C-Reactive Protein 1.70 H (0.00-0.80) mg/dL Procalcitonin 0.11 H (0.02-0.09) ng/mL 07/03/21 07/03/21 07/04/21 Range/Units 17:25 20:13 06:51 Potassium 3.3 L (3.5-5.1) mmol/L Glucose 112 H (74-99) mg/dL POC Glucose (mg/dL) 118 H 124 H (75-99) mg/dL AST 39 H (14-36) U/L C-Reactive Protein (0.00-0.80) mg/dL Procalcitonin (0.02-0.09) ng/mL 07/04/21 Range/Units 07:35 Potassium (3.5-5.1) mmol/L Glucose (74-99) mg/dL POC Glucose (mg/dL) 104 H (75-99) mg/dL AST (14-36) U/L C-Reactive Protein (0.00-0.80) mg/dL Procalcitonin (0.02-0.09) ng/mL Microbiology - Last 24 Hours (Table) 07/01/21 16:24 Blood Culture - Preliminary Blood No Growth after 48 hours 07/01/21 23:40 CSF Gram Stain - Preliminary Cerebral Spinal Fluid CSF Culture - Preliminary Assessment and Plan (1) Fever Current Visit: Yes Status: Acute Code(s): R50.9 - FEVER, UNSPECIFIED SNOMED Code(s): 158647983 Plan: 1patient presented to hospital with generalized body aches fever this patient did have some headache and photophobia but no neck rigidity patient did not have an elevated white count , patient chest x-ray was negative for pneumonia urine is negative patient did have a healthy with mildly elevated protein white count is mildly elevated CSF glucose is normal likely encephalitis possibly viral not behaving as bacterial meningitis the patient do not have any other obvious focus of infection with negative CT of abdominal pelvis, patient to continue with the acyclovir while waiting for HSV DNA by PCR to be completed , 2-In view of persistent fever blood cultures have been repeated, chest x-ray was requested and we'll follow the results Time with Patient: Less than 30
--- NOTE | 2021-07-06 08:34 | P.PN ---
Subjective Progress Note Date: 07/05/21 Principal diagnosis: Fever and possible encephalitis Patient is a 76-year-old female presented to the hospital with generalized body aches and fever and some mental status changes in this patient who is status post LP with elevated protein and normal glucose elevated white count concerning for encephalitis. On today's evaluation that is 07/05/2021, the patient fever pattern has improved, the patient is currently feeling slightly better headache has decreased in intensity, denies any chest pain or shortness of breath occasional cough no abdominal pain or diarrhea Objective - Vital Signs Vital signs: Vital Signs Temp 98.9 F 07/06/21 01:26 Pulse 79 07/06/21 01:26 Resp 17 07/06/21 01:26 BP 149/83 07/06/21 01:26 Pulse Ox 95 07/06/21 01:26 FiO2 Intake & Output 07/05/21 07/06/21 07/06/21 18:59 06:59 18:59 Intake Total 473 Balance 473 Intake: Oral 473 Other: Voiding Method Bedside Commode Bedside Commode # Voids 1 1 - Exam GENERAL DESCRIPTION: An elderly female lying in bed in no distress RESPIRATORY SYSTEM: Unlabored breathing , decreased breath sounds at bases HEART: S1 S2 regular rate and rhythm , ABDOMEN: Soft , no tenderness EXTREMITIES: No edema feet - Labs CBC & Chem 7: 07/05/21 07:44 07/05/21 07:52 Labs: Abnormal Lab Results - Last 24 Hours (Table) 07/05/21 07/05/21 07/05/21 Range/Units 07:44 07:52 11:57 Plt Count 124 L (140-440) X 10*3/uL Potassium 3.3 L (3.5-5.5) mmol/L BUN 7.6 L (9.0-27.0) mg/dL BUN/Creatinine Ratio 9.74 L (12.00-20.00) Ratio Glucose 115 H (70-110) mg/dL POC Glucose (mg/dL) 129 H (75-99) mg/dL AST 36 H (13-35) U/L Total Protein 6.1 L (6.2-8.2) g/dL Albumin 3.6 L (3.8-4.9) g/dL Albumin/Globulin Ratio 1.40 L (1.60-3.17) g/dL 07/05/21 07/05/21 07/05/21 Range/Units 17:14 19:00 19:00 Plt Count (140-440) X 10*3/uL Potassium (3.5-5.5) mmol/L BUN (9.0-27.0) mg/dL BUN/Creatinine Ratio (12.00-20.00) Ratio Glucose (70-110) mg/dL POC Glucose (mg/dL) 124 H 166 H 166 H (75-99) mg/dL AST (13-35) U/L Total Protein (6.2-8.2) g/dL Albumin (3.8-4.9) g/dL Albumin/Globulin Ratio (1.60-3.17) g/dL 07/06/21 Range/Units 07:18 Plt Count (140-440) X 10*3/uL Potassium (3.5-5.5) mmol/L BUN (9.0-27.0) mg/dL BUN/Creatinine Ratio (12.00-20.00) Ratio Glucose (70-110) mg/dL POC Glucose (mg/dL) 105 H (75-99) mg/dL AST (13-35) U/L Total Protein (6.2-8.2) g/dL Albumin (3.8-4.9) g/dL Albumin/Globulin Ratio (1.60-3.17) g/dL Microbiology - Last 24 Hours (Table) 07/01/21 23:40 CSF Gram Stain - Final Cerebral Spinal Fluid CSF Culture - Final 07/01/21 16:24 Blood Culture - Preliminary Blood No Growth after 96 hours 07/03/21 10:42 Blood Culture - Preliminary Blood No Growth after 48 hours Assessment and Plan (1) Fever Current Visit: Yes Status: Acute Code(s): R50.9 - FEVER, UNSPECIFIED SNOMED Code(s): 937430733 Plan: 1patient presented to hospital with generalized body aches fever this patient did have some headache and photophobia but no neck rigidity patient did not have an elevated white count , patient chest x-ray was negative for pneumonia urine i s negative patient did have a healthy with mildly elevated protein white count is mildly elevated CSF glucose is normal likely encephalitis possibly viral not behaving as bacterial meningitis the patient did have negative CT of abdominal pelvis, patient to continue with the acyclovir however CSF viral PCR is negative making it to be less likely herpes encephalitis and will discuss further with neurology 2-repeat chest x-ray possible pneumonia in view of persistent fever we'll add Rocephin and doxycycline Time with Patient: Less than 30
[2021-07-06] MEDS: INSULIN ASPART (NovoLOG) 100 UNIT/ML VIAL SQ SCH ×4 (08:52→20:52)
[2021-07-06] MEDS: SODIUM CHLORIDE 0.9% 1,000 ML IV SCH ×2 (08:53→20:53)
[2021-07-06] MEDS: DOXYCYCLINE 100 MG CAP PO SCH ×2 (08:54→20:52)
--- NOTE | 2021-07-06 08:55 | P.PN ---
Subjective Principal diagnosis: Altered mental status with probable viral encephalitis The patient is admitted secondary to altered mental status. Lumbar puncture did show white cells indicative of possible viral encephalitis. IV access is terence roprate Appreciate infectious disease input. PT is improving the patient. No fever in the last 24 hours. The patient clinically feels improved. Potassium is a little bit low. Objective - Vital Signs Vital signs: Vital Signs Temp 98.9 F 07/06/21 01:26 Pulse 79 07/06/21 01:26 Resp 17 07/06/21 01:26 BP 149/83 07/06/21 01:26 Pulse Ox 95 07/06/21 01:26 FiO2 Intake & Output 07/05/21 07/06/21 07/06/21 18:59 06:59 18:59 Intake Total 473 Balance 473 Intake: Oral 473 Other: Voiding Method Bedside Commode Bedside Commode # Voids 1 1 - Constitutional General appearance: Present: average body habitus - EENT Eyes: Absent: abnormal pupil - Neck Neck: Absent: lymphadenopathy - Respiratory Respiratory: bilateral: CTA - Cardiovascular Rhythm: regular Heart sounds: normal: S1, S2 Abnormal Heart Sounds: Absent: S3 Gallop - Gastrointestinal General gastrointestinal: Present: soft. Absent: splenomegaly, tenderness - Neurologic Neurologic: Absent: focal deficits - Musculoskeletal Musculoskeletal: Present: strength equal bilaterally - Labs CBC & Chem 7: 07/05/21 07:44 07/05/21 07:52 Labs: Abnormal Lab Results - Last 24 Hours (Table) 07/05/21 07/05/21 07/05/21 Range/Units 07:44 07:52 11:57 Plt Count 124 L (140-440) X 10*3/uL Potassium 3.3 L (3.5-5.5) mmol/L BUN 7.6 L (9.0-27.0) mg/dL BUN/Creatinine Ratio 9.74 L (12.00-20.00) Ratio Glucose 115 H (70-110) mg/dL POC Glucose (mg/dL) 129 H (75-99) mg/dL AST 36 H (13-35) U/L Total Protein 6.1 L (6.2-8.2) g/dL Albumin 3.6 L (3.8-4.9) g/dL Albumin/Globulin Ratio 1.40 L (1.60-3.17) g/dL 07/05/21 07/05/21 07/05/21 Range/Units 17:14 19:00 19:00 Plt Count (140-440) X 10*3/uL Potassium (3.5-5.5) mmol/L BUN (9.0-27.0) mg/dL BUN/Creatinine Ratio (12.00-20.00) Ratio Glucose (70-110) mg/dL POC Glucose (mg/dL) 124 H 166 H 166 H (75-99) mg/dL AST (13-35) U/L Total Protein (6.2-8.2) g/dL Albumin (3.8-4.9) g/dL Albumin/Globulin Ratio (1.60-3.17) g/dL 07/06/21 Range/Units 07:18 Plt Count (140-440) X 10*3/uL Potassium (3.5-5.5) mmol/L BUN (9.0-27.0) mg/dL BUN/Creatinine Ratio (12.00-20.00) Ratio Glucose (70-110) mg/dL POC Glucose (mg/dL) 105 H (75-99) mg/dL AST (13-35) U/L Total Protein (6.2-8.2) g/dL Albumin (3.8-4.9) g/dL Albumin/Globulin Ratio (1.60-3.17) g/dL Microbiology - Last 24 Hours (Table) 07/01/21 23:40 CSF Gram Stain - Final Cerebral Spinal Fluid CSF Culture - Final 07/01/21 16:24 Blood Culture - Preliminary Blood No Growth after 96 hours 07/03/21 10:42 Blood Culture - Preliminary Blood No Growth after 48 hours Assessment and Plan (1) Viral encephalitis Current Visit: Yes Status: Acute Code(s): A86 - UNSPECIFIED VIRAL ENCEPHALITIS SNOMED Code(s): 82058661 (2) Altered mental status Current Visit: Yes Status: Acute Code(s): R41.82 - ALTERED MENTAL STATUS, UNSPECIFIED SNOMED Code(s): 544396765 Plan: Continue observation and slow improvement. Appreciate neurology and infectious disease input. CBC and CMP is pending. Continue therapy I suspect once we elucidate home medication treatment with home health, we can anticipate discharge soon.
[2021-07-06 10:54] LABS: Basophils % (A) 1.2 %; Eosinophils # (A) 0.42 X 10*3/uL (0.04-0.35); Eosinophils % (A) 5.1 %; HGB 11.3 g/dL (12.0-15.0); Immature Grans, Automated 0.5 %; Lymphocytes # (A) 1.98 X 10*3/uL (0.90-5.00); Lymphocytes % (A) 24.1 %; MCH 28.3 pg (27.0-32.0); MCHC 32.3 g/dL (32.0-37.0); MCV 87.7 fL (80.0-97.0); Mean Platelet Volume 10.6 fL (9.5-12.2); Monocytes # (A) 0.62 X 10*3/uL (0.20-1.00); Monocytes % (A) 7.6 %; NRBC Per 100 WBC 0 /100 WBCS (0.0-0.0); Neutrophils # (A) 5.04 X 10*3/uL (1.80-7.70); Neutrophils % (A) 61.5 %; Platelet Count 174 X 10*3/uL (140-440); RBC 3.99 X 10*6/uL (4.10-5.20)
[2021-07-06 14:45] LABS: ALT 26 U/L (8-44); AST 31 U/L (13-35); African American GFR (CKD) 97.5 (60.0-200.0); Albumin 3.3 g/dL (3.8-4.9); Alkaline Phosphatase 35 U/L (41-126); BUN/Creat Ratio 12.71 Ratio (12.00-20.00); Blood Urea Nitrogen 8.9 mg/dL (9.0-27.0); C Reactive Protein <0.30 mg/dL (0.00-0.80); Calcium 8.7 mg/dL (8.7-10.3); Carbon Dioxide 23.6 mmol/L (20.0-27.5); Chloride 107 mmol/L (96-109); Globulin 2.2 g/dL (1.6-3.3); Glucose 120 mg/dL (70-110); Non-African American GFR(CKD) 84.2 (60.0-200.0); Sodium 140 mmol/L (135-145); Total Protein 5.5 g/dL (6.2-8.2)
[2021-07-06 14:53] LABS: Glucose,Whole Blood 98 mg/dL (75-99)
--- NOTE | 2021-07-06 17:14 | P.PN ---
Subjective Progress Note Date: 07/06/21 The patient is seen at bedside and is accompanied by her . She states her headache are improving. She is having tremor and it all started with fever and her presentation. Objective - Vital Signs Vital signs: Vital Signs Temp 98.2 F 07/06/21 07:19 Pulse 65 07/06/21 08:00 Resp 15 07/06/21 08:00 BP 112/67 07/06/21 07:19 Pulse Ox 94 L 07/06/21 07:19 FiO2 Intake & Output 07/05/21 07/06/21 07/06/21 18:59 06:59 18:59 Intake Total 473 Balance 473 Intake: Oral 473 Other: Voiding Method Bedside Commode Bedside Commode Bedside Commode # Voids 1 1 5 - Exam GENERAL: The patient is sitting in recliner chair and not in acute distress. NEUROLOGICAL: Higher mental function: The patient is awake, alert, oriented to self, place and time. Patient is following commands. No aphasia and no neglect. Cranial nerves: The pupils are round, equal and reactive to light and accommodation. Visual bell are full to confrontation throughout. Extraocular movement is intact no nystagmus is noted. Facial sensation is normal to touch throughout. The facial strength is normal throughout. Tongue is midline and moved [id number] without any difficulty. No dysarthria is noted. Shoulder shrug is normal bilaterally. Motor: The strength is 5 over 5 throughout uppers while lowers are 4. Decrease tone in lowers while uppers are normal. Has action trmor. Cerebellum: Normal finger to nose bilaterally. Sensation: Sensation is normal to touch throughout. - Labs CBC & Chem 7: 07/06/21 05:49 07/06/21 05:49 Labs: Abnormal Lab Results - Last 24 Hours (Table) 07/05/21 07/05/21 07/05/21 Range/Units 17:14 19:00 19:00 RBC (4.10-5.20) X 10*6/uL Hgb (12.0-15.0) g/dL Hct (37.2-46.3) % Eosinophils # (0.04-0.35) X 10*3/uL Potassium (3.5-5.5) mmol/L Anion Gap (10.00-18.00) mmol/L BUN (9.0-27.0) mg/dL Glucose (70-110) mg/dL POC Glucose (mg/dL) 124 H 166 H 166 H (75-99) mg/dL Alkaline Phosphatase (41-126) U/L Total Protein (6.2-8.2) g/dL Albumin (3.8-4.9) g/dL Albumin/Globulin Ratio (1.60-3.17) g/dL 07/06/21 07/06/21 07/06/21 Range/Units 05:49 05:49 07:18 RBC 3.99 L (4.10-5.20) X 10*6/uL Hgb 11.3 L (12.0-15.0) g/dL Hct 35.0 L (37.2-46.3) % Eosinophils # 0.42 H (0.04-0.35) X 10*3/uL Potassium 3.0 L (3.5-5.5) mmol/L Anion Gap 9.40 L (10.00-18.00) mmol/L BUN 8.9 L (9.0-27.0) mg/dL Glucose 120 H (70-110) mg/dL POC Glucose (mg/dL) 105 H (75-99) mg/dL Alkaline Phosphatase 35 L (41-126) U/L Total Protein 5.5 L (6.2-8.2) g/dL Albumin 3.3 L (3.8-4.9) g/dL Albumin/Globulin Ratio 1.50 L (1.60-3.17) g/dL Microbiology - Last 24 Hours (Table) 07/03/21 10:42 Blood Culture - Preliminary Blood No Growth after 72 hours 07/01/21 23:40 CSF Gram Stain - Final Cerebral Spinal Fluid CSF Culture - Final 07/01/21 16:24 Blood Culture - Preliminary Blood No Growth after 96 hours Assessment and Plan Assessment: * Acute febrile illness of 3 days duration with headache, neck and back pain, with new onset speech difficulty, generalized weakness and difficulty walking. Seems more viral encepahlitis (with CSF nucleated cells of 33). Rule out herpes encephalitis. * Borderline diabetes * Hypertension * Hyperlipidemia Plan: * Patient underwent lumbar puncture on 07/01/21. CSF showed was colorless and clear. Total WBC 33 with 96% monocytes and 4% polynuclear cells. RBCs 74, CSF protein 107 and glucose 68. CSF picture suggestive of a viral encephalitis. CSF gramin stain and culture is negative. CSF virus panel: negative. HSV 1/2 not detected. Loo virus PCR negative. Influenza screen and RSV negative. Continue acyclovir. She was started on Ceftriaxone 2gm every 24 hours and Doxycycline 100mg bid by I.D. Will defer medication modification to I.D. team. * Ordered repeat herpes 1/2 PCR. Pending crytoccocus ordered by Dr. Storm. * MRI of the brain with and without contrast normal. No abnormal signals noticed. * MRI Lumbar spine: Is reported as degenerative disc disease and facet arthropathy, suspect spondylosis at L5 with slight anterior basis L5-S1. * Infectious disease input appreciated. * * DVT prophylaxis. The plan is discussed with the patient, her and I.D. team. Will follow-up with patient sporadically. Denys Vazquez M.D. Neuro-Hospitalist. Time with Patient: Less than 30
[2021-07-06] MEDS: POTASSIUM CHLORIDE ER 20 MEQ TAB.ER PO SCH ×2 (17:18→18:22)
[2021-07-06 17:30] LABS: Glucose,Whole Blood 156 mg/dL (75-99)
[2021-07-06 20:14] LABS: Glucose,Whole Blood 150 mg/dL (75-99)
[2021-07-06] MEDS: ATORVASTATIN 20 MG TAB PO SCH (20:52)
--- NOTE | 2021-07-06 23:08 | P.PN ---
Subjective Progress Note Date: 07/06/21 Principal diagnosis: Fever and possible encephalitis Patient is a 76-year-old female presented to the hospital with generalized body aches and fever and some mental status changes in this patient who is status post LP with elevated protein and normal glucose elevated white count concerning for encephalitis. On today's evaluation that is 07/06/2021, the patient is afebrile, the patient is breathing comfortably on room air patient headache has decreased in intensity no nausea no vomiting no abdominal pain no diarrhea Objective - Vital Signs Vital signs: Vital Signs Temp 98.2 F 07/06/21 07:19 Pulse 65 07/06/21 08:00 Resp 15 07/06/21 08:00 BP 112/67 07/06/21 07:19 Pulse Ox 94 L 07/06/21 07:19 FiO2 Intake & Output 07/05/21 07/06/21 07/06/21 18:59 06:59 18:59 Intake Total 473 Balance 473 Intake: Oral 473 Other: Voiding Method Bedside Commode Bedside Commode Bedside Commode # Voids 1 1 - Exam GENERAL DESCRIPTION: An elderly female lying in bed in no distress RESPIRATORY SYSTEM: Unlabored breathing , decreased breath sounds at bases HEART: S1 S2 regular rate and rhythm , ABDOMEN: Soft , no tenderness EXTREMITIES: No edema feet - Labs CBC & Chem 7: 07/06/21 05:49 07/06/21 05:49 Labs: Abnormal Lab Results - Last 24 Hours (Table) 07/05/21 07/05/21 07/05/21 Range/Units 07:44 07:52 11:57 Plt Count 124 L (140-440) X 10*3/uL Potassium 3.3 L (3.5-5.5) mmol/L BUN 7.6 L (9.0-27.0) mg/dL BUN/Creatinine Ratio 9.74 L (12.00-20.00) Ratio Glucose 115 H (70-110) mg/dL POC Glucose (mg/dL) 129 H (75-99) mg/dL AST 36 H (13-35) U/L Total Protein 6.1 L (6.2-8.2) g/dL Albumin 3.6 L (3.8-4.9) g/dL Albumin/Globulin Ratio 1.40 L (1.60-3.17) g/dL 07/05/21 07/05/21 07/05/21 Range/Units 17:14 19:00 19:00 Plt Count (140-440) X 10*3/uL Potassium (3.5-5.5) mmol/L BUN (9.0-27.0) mg/dL BUN/Creatinine Ratio (12.00-20.00) Ratio Glucose (70-110) mg/dL POC Glucose (mg/dL) 124 H 166 H 166 H (75-99) mg/dL AST (13-35) U/L Total Protein (6.2-8.2) g/dL Albumin (3.8-4.9) g/dL Albumin/Globulin Ratio (1.60-3.17) g/dL 07/06/21 Range/Units 07:18 Plt Count (140-440) X 10*3/uL Potassium (3.5-5.5) mmol/L BUN (9.0-27.0) mg/dL BUN/Creatinine Ratio (12.00-20.00) Ratio Glucose (70-110) mg/dL POC Glucose (mg/dL) 105 H (75-99) mg/dL AST (13-35) U/L Total Protein (6.2-8.2) g/dL Albumin (3.8-4.9) g/dL Albumin/Globulin Ratio (1.60-3.17) g/dL Microbiology - Last 24 Hours (Table) 07/01/21 23:40 CSF Gram Stain - Final Cerebral Spinal Fluid CSF Culture - Final 07/01/21 16:24 Blood Culture - Preliminary Blood No Growth after 96 hours 07/03/21 10:42 Blood Culture - Preliminary Blood No Growth after 48 hours Assessment and Plan (1) Fever Current Visit: Yes Status: Acute Code(s): R50.9 - FEVER, UNSPECIFIED SNOMED Code(s): 474791784 Plan: 1patient presented to hospital with generalized body aches fever this patient did have some headache and photophobia but no neck rigidity patient did not have an elevated white count , patient chest x-ray was negative for pneumonia urine is negative patient did have a healthy with mildly elevated protein white count is mildly elevated CSF glucose is normal likely encephalitis possibly viral not behaving as bacterial meningitis the patient did have negative CT of abdominal pelvis, patient to continue with the acyclovir however CSF viral PCR is negative which will make herpes encephalitis to be less likely and acyclovir can be discontinued on discharge 2-repeat chest x-ray possible pneumonia and the patient fever responded to Rocephin and doxycycline, afebrile he is to be afebrile today plan to finish therapy with oral Ceftin and doxycycline 7 days Time with Patient: Less than 30
[2021-07-07 07:29] LABS: Glucose,Whole Blood 115 mg/dL (75-99)
[2021-07-07] MEDS: INSULIN ASPART (NovoLOG) 100 UNIT/ML VIAL SQ SCH (08:08)
[2021-07-07] MEDS: HEPARIN SODIUM,PORCINE/PF 5,000 UNIT/0.5 ML SYRINGE SQ SCH (08:08)
--- NOTE | 2021-07-07 08:11 | P.DS ---
Providers Date of admission: 07/03/21 12:40 Attending physician: Rolf Singer Consults: 07/01/21 11:52 Consult Physician Urgent Consulting Provider: Ugo Storm Consult Reason/Comments: Altered mental status Do you want consulting provider notified?: Yes 07/01/21 15:15 Consult to Anesthesia Stat Consulting Provider: Anesthesia,Services Consult Reason/Comments: Probable encephalities 07/01/21 15:17 Consult Physician Urgent Consulting Provider: Amy Panda Consult Reason/Comments: Possible encephalitis Do you want consulting provider notified?: Yes Primary care physician: Rolf Singer - Discharge Diagnosis(es) (1) Viral encephalitis Current Visit: Yes Status: Acute (2) Altered mental status Current Visit: Yes Status: Acute Hospital Course: This is a discharge summary 76-year-old white female essentially admitted for altered mental status. Lumbar puncture showed probable evidence of viral encephalitis. The patient was started empirically on antiviral treatment. She continued to spike temperature and because of this she was also. We treated for pneumonia. Appreciate multiple consultants input. She is now ambulating without difficulty and back to baseline mentation with minimal fever in the last 48-72 hours. She is tolerating diet and will be discharged once cleared by consultants. Follow-up with me in about 3-5 days Plan - Discharge Summary Discharge Rx Participant: No New Discharge Prescriptions: New RX: Doxycycline [Vibramycin] 100 mg PO BID #14 cap Continue RX: lisinopriL [Zestril] 10 mg PO HS RX: Fluticasone Nasal [place] [Flonase Nasal [place]] 1 - 2 spray EA NOSTRIL DAILY RX: Atorvastatin Calcium [Lipitor] 20 mg PO HS Discontinued Amoxicillin/Potassium Clav [Augmentin Xr 1,000-62.5 Tab] 2 tab PO BID Discharge Medication List RX: lisinopriL [Zestril] 10 mg PO HS 10/05/15 [History] RX: Atorvastatin Calcium [Lipitor] 20 mg PO HS 11/04/20 [History] RX: Fluticasone Nasal [place] [Flonase Nasal [place]] 1 - 2 spray EA NOSTRIL DAILY 07/01/21 [History] RX: Doxycycline [Vibramycin] 100 mg PO BID #14 cap 07/07/21 [Rx] Follow up Appointment(s)/Referral(s): Rolf Singer MD [Primary Care Provider] - 3 Days [facility], [NON-STAFF] - 1-2 Days Discharge Disposition: HOME SELF-CARE
[2021-07-07] MEDS: DOXYCYCLINE 100 MG CAP PO SCH (08:12)
[2021-07-07] MEDS: ACYCLOVIR SODIUM IVPB SCH (08:14)
[2021-07-07] MEDS: SODIUM CHLORIDE 0.9% IVPB SCH (08:14)
[2021-07-07 08:38] VITALS: BP 151/81; PULSE 73; RESP 14; TEMP 99.3
[2021-07-07 08:54] LABS: HCT 35.6 % (37.2-46.3); HGB 11.4 g/dL (12.0-15.0); MCV 87.5 fL (80.0-97.0); Mean Platelet Volume 10.4 fL (9.5-12.2); NRBC Per 100 WBC 0 /100 WBCS (0.0-0.0); Platelet Count 189 X 10*3/uL (140-440); RBC 4.07 X 10*6/uL (4.10-5.20); RDW 13.2 % (11.5-14.5); WBC 8.17 X 10*3/uL (4.50-10.00)
[2021-07-07 08:56] VITALS: BMI 31.4
[2021-07-07 09:52] LABS: Albumin 3.5 g/dL (3.8-4.9); Albumin/Globulin Ratio 1.46 (1.60-3.17); Anion Gap 8.7 mmol/L (10.00-18.00); BUN/Creat Ratio 11.38 Ratio (12.00-20.00); Blood Urea Nitrogen 9.1 mg/dL (9.0-27.0); Carbon Dioxide 24.3 mmol/L (20.0-27.5); Globulin 2.4 g/dL (1.6-3.3); Non-African American GFR(CKD) 71.6 (60.0-200.0); Potassium 3.2 mmol/L (3.5-5.5); Total Bilirubin 0.4 mg/dL (0.30-1.20); Total Protein 5.9 g/dL (6.2-8.2)
[2021-07-07 11:50] LABS: Glucose,Whole Blood 122 mg/dL (75-99)
[2021-07-11 04:44] LABS: Herpes simplex I and/or II IgM 0.21 INDEX (<=0.90); Herpes simplex IgG I Ab 38.2 (< or = 0.90); Herpes simplex IgG II Ab 0.12 (< or = 0.90)
--- NOTE | 2021-07-14 08:20 | P.PN ---
Subjective Progress Note Date: 07/07/21 Principal diagnosis: Fever and possible encephalitis Patient is a 76-year-old female presented to the hospital with generalized body aches and fever and some mental status changes in this patient who is status post LP with elevated protein and normal glucose elevated white count concerning for encephalitis. On today's evaluation that is 07/07/2021, the patient remains to be afebrile, patient is breathing comfortably on room air, the patient denies having any chest pain occasional cough patient had a has much improved no nausea no vomiting no abdominal pain no diarrhea Objective - Vital Signs Vital signs: Vital Signs Temp 99.3 F 07/07/21 08:00 Pulse 73 07/07/21 08:00 Resp 14 07/07/21 08:00 BP 151/81 07/07/21 08:00 Pulse Ox 97 07/07/21 08:00 FiO2 Intake & Output 07/06/21 07/07/21 07/07/21 18:59 06:59 18:59 Intake Total 222 240 Balance 222 240 Weight 88.451 kg Intake: Oral 222 240 Other: Voiding Method Bedside Commode Bedside Commode # Voids 5 1 - Exam GENERAL DESCRIPTION: An elderly female lying in bed in no distress RESPIRATORY SYSTEM: Unlabored breathing , decreased breath sounds at bases HEART: S1 S2 regular rate and rhythm , ABDOMEN: Soft , no tenderness EXTREMITIES: No edema feet - Labs CBC & Chem 7: 07/07/21 06:17 07/07/21 06:17 Labs: Abnormal Lab Results - Last 24 Hours (Table) 07/06/21 07/06/21 07/06/21 Range/Units 05:49 17:28 20:13 RBC (4.10-5.20) X 10*6/uL Hgb (12.0-15.0) g/dL Hct (37.2-46.3) % Potassium 3.0 L (3.5-5.5) mmol/L Anion Gap 9.40 L (10.00-18.00) mmol/L BUN 8.9 L (9.0-27.0) mg/dL BUN/Creatinine Ratio (12.00-20.00) Ratio Glucose 120 H (70-110) mg/dL POC Glucose (mg/dL) 156 H 150 H (75-99) mg/dL Alkaline Phosphatase 35 L (41-126) U/L Total Protein 5.5 L (6.2-8.2) g/dL Albumin 3.3 L (3.8-4.9) g/dL Albumin/Globulin Ratio 1.50 L (1.60-3.17) g/dL 07/07/21 07/07/21 07/07/21 Range/Units 06:17 06:17 07:23 RBC 4.07 L (4.10-5.20) X 10*6/uL Hgb 11.4 L (12.0-15.0) g/dL Hct 35.6 L (37.2-46.3) % Potassium 3.2 L (3.5-5.5) mmol/L Anion Gap 8.70 L (10.00-18.00) mmol/L BUN (9.0-27.0) mg/dL BUN/Creatinine Ratio 11.38 L (12.00-20.00) Ratio Glucose 122 H (70-110) mg/dL POC Glucose (mg/dL) 115 H (75-99) mg/dL Alkaline Phosphatase 38 L (41-126) U/L Total Protein 5.9 L (6.2-8.2) g/dL Albumin 3.5 L (3.8-4.9) g/dL Albumin/Globulin Ratio 1.46 L (1.60-3.17) g/dL Microbiology - Last 24 Hours (Table) 07/01/21 16:24 Blood Culture - Preliminary Blood No Growth after 120 hours 07/03/21 10:42 Blood Culture - Preliminary Blood No Growth after 72 hours 07/01/21 23:40 CSF Gram Stain - Final Cerebral Spinal Fluid CSF Culture - Final Assessment and Plan (1) Fever Status: Acute Code(s): R50.9 - FEVER, UNSPECIFIED SNOMED Code(s): 803767485 Plan: 1patient presented to hospital with generalized body aches fever this patient did have some headache and photophobia but no neck rigidity patient did not have an elevated white count , patient chest x-ray was negative for pneumonia urine is negative patient did have a healthy with mildly elevated protein white count is mildly elevated CSF glucose is normal likely encephalitis possibly viral not behaving as bacterial meningitis the patient did have negative CT of abdominal pelvis, patient CSF viral PCR negative making HSV encephalitis to be less likely acyclovir has been discontinued and no need for any antiviral on discharge, patient however has been instructed if any recurrence of fever or headache or any mental status changes noticed by the to bring her back to the hospital right away 2-repeat chest x-ray possible pneumonia and the patient fever responded to Rocephin and doxycycline, with plan to finish therapy with oral Ceftin and doxycycline 7 days and a close outpatient follow-up Time with Patient: Less than 30
== END 2021-07-07 13:19 | disposition home or self-care (01) | DRG 97 ==
LOC: EC 07:09 → 6NMEDSUR 11:54 → OBSVTOIN 07-03 12:40 → 6NMEDSUR 07-07 05:18
PROVIDERS: ADMIT Family Medicine; ATTEND Family Medicine
PROC: 009U3ZX Drainage of Spinal Canal, Percutaneous Approach, Diagnostic (ICD-10-PCS; 2021-07-01)
PROC: 02HV33Z Insertion of Infusion Device into Superior Vena Cava, Percutaneous Approach (ICD-10-PCS; principal; 2021-07-03 11:25)
DX: A86 Unspecified viral encephalitis (principal); J18.9 Pneumonia, unspecified organism; R47.01 Aphasia; E11.9 Type 2 diabetes mellitus without complications; E78.5 Hyperlipidemia, unspecified; H66.93 Otitis media, unspecified, bilateral; I10 Essential (primary) hypertension; Z79.899 Other long term (current) drug therapy; Z82.3 Family history of stroke; Z82.49 Family history of ischemic heart disease and other diseases of the circulatory system; Z86.61 Personal history of infections of the central nervous system; Z86.73 Personal history of transient ischemic attack (TIA), and cerebral infarction without residual deficits; Z87.891 Personal history of nicotine dependence; H26.9 Unspecified cataract; Z90.49 Acquired absence of other specified parts of digestive tract; Z98.51 Tubal ligation status; F40.240 Claustrophobia; Z98.890 Other specified postprocedural states; Z20.822 Contact with and (suspected) exposure to COVID-19; Z88.1 Allergy status to other antibiotic agents; Z88.2 Allergy status to sulfonamides
CPT/HCPCS: 36415; 36573; 70450; 70553; 71046; 72158; 74177; 80053; 80306; 81001; 82553; 82565; 82945; 83605; 84145; 84157; 85025; 85027; 85652; 86140; 86694; 86695; 86696; 87040; 87070; 87205; 87252; 87327; 87449; 87496; 87498; 87502; 87529; 87634; 87635; 87798; 89050; 93005; 96360; 96361; 99285

== ENCOUNTER 2021-07-09 08:20 | Inpatient (IN) | payer MEDICARE ==
[2021-07-09] MEDS ORDERED: SODIUM CHLORIDE 0.9% 1,000 ML IV STA (08:34)
--- NOTE | 2021-07-09 08:38 | ED ---
General Adult HPI - General Chief complaint: Fall Stated complaint: AMS, fall Time Seen by Provider: 07/09/21 08:22 Source: patient, family, EMS, RN notes reviewed Mode of arrival: EMS Limitations: altered mental status, physical limitation - History of Present Illness Initial comments: Patient is a pleasant 76-year-old female presenting to the emergency department by EMS for fall and altered mental status. Last known well was 4 AM. Patient was doing well yesterday. Patient was discharged from the hospital just 2 days ago for meningitis. EMS states that patient seemed to be doing well and helped her to the bathroom. After this patient was talking gibberish and had right- sided weakness. This then resolved. Patient denies headache. During history taking there is too short episodes lasting 3-4 seconds were patient has garbled speech and difficulty answering questions. Patient denies headache. Patient denies head injury. Patient normally has difficulty with ambulation and does use a walker. Patient has been more weak since her recent hospitalization. - Related Data Home Medications Medication Instructions Recorded Confirmed lisinopriL [Zestril] 10 mg PO HS 10/05/15 07/01/21 Atorvastatin Calcium [Lipitor] 20 mg PO HS 11/04/20 07/01/21 Fluticasone Nasal [place] [Flonase 1 - 2 spray EA NOSTRIL DAILY 07/01/21 07/01/21 Nasal [place]] Previous Rx's Medication Instructions Recorded Cefuroxime Axetil [Ceftin] 500 mg PO BID 7 Days #14 tab 07/07/21 Doxycycline [Vibramycin] 100 mg PO BID #14 cap 07/07/21 Allergies Allergy/AdvReac Type Severity Reaction Status Date / Time neomycin Allergy Rash/Hives Verified 07/09/21 08:27 Sulfa (Sulfonamide Allergy Dyspnea Verified 07/09/21 08:27 Antibiotics) tobramycin [From Tobrex] Allergy Swelling Verified 07/09/21 08:27 Review of Systems ROS Statement: Those systems with pertinent positive or pertinent negative responses have been documented in the HPI. ROS Other: All systems not noted in ROS Statement are negative. Constitutional: Denies: fever Eyes: Denies: eye pain ENT: Denies: ear pain Respiratory: Denies: cough Cardiovascular: Denies: chest pain Endocrine: Denies: fatigue Gastrointestinal: Denies: abdominal pain Genitourinary: Denies: dysuria Musculoskeletal: Denies: back pain Neurological: Reports: as per HPI, weakness, confusion. Denies: headache Past Medical History Past Medical History: CVA/TIA, Diabetes Mellitus, Hyperlipidemia, Hypertension, Osteoarthritis (OA) Additional Past Medical History / Comment(s): diet controled diabetic, checks bs occ, takes no meds. cataracats,bladder infection, spinal meningitis History of Any Multi-Drug Resistant Organisms: None Reported Past Surgical History: Adenoidectomy, Cholecystectomy, Tubal Ligation Additional Past Surgical History / Comment(s): cysts removed from face Past Anesthesia/Blood Transfusion Reactions: No Reported Reaction Additional Past Anesthesia/Blood Transfusion Reaction / Comment(s): clausterphobia Past Psychological History: No Psychological Hx Reported Smoking Status: Never smoker Past Alcohol Use History: Occasional Past Drug Use History: None Reported - Past Family History Father Additional Family Medical History / Comment(s): from "hardening of the arteries" Mother Family Medical History: CVA/TIA, Myocardial Infarction (ND) General Exam Limitations: altered mental status General appearance: alert, in no apparent distress Head exam: Present: atraumatic Eye exam: Present: normal appearance, PERRL, EOMI ENT exam: Present: normal oropharynx Neck exam: Present: normal inspection. Absent: tenderness, meningismus Respiratory exam: Present: normal lung sounds bilaterally Cardiovascular Exam: Present: regular rate, normal rhythm GI/Abdominal exam: Present: soft. Absent: tenderness Extremities exam: Present: normal inspection, full ROM. Absent: tenderness Neurological exam: Present: alert, altered, CN II-XII intact. Absent: motor sensory deficit Expanded Neurological exam: Present: protecting the airway Patient oriented to: Present: person, time. Absent: place Motor strength exam: RUE: 5, LUE: 5, RLE: 5, LLE: 5 Eye Response: (4) open spontaneously Motor Response: (6) obeys commands Verbal Response: (4) confused conversation Psychiatric exam: Present: normal affect, normal mood Skin exam: Present: normal color Course Vital Signs 07/09/21 07/09/21 07/09/21 08:21 08:50 09:27 Temperature 98.2 F Pulse Rate 72 63 61 Respiratory 16 16 13 Rate Blood Pressure 160/81 170/82 176/117 O2 Sat by Pulse 93 L 97 94 L Oximetry - Reevaluation(s) Reevaluation #1: 05/29/22 08:46 Case was discussed with Dr. Aguirre. Patient is felt not to be a TPA candidate secondary to last known well greater than 4.5 hours. In addition there is potential risk with recent meningitis and lumbar puncture. Risks felt to outweigh potential benefits. EKG Findings - EKG Comments: EKG Findings:: Sinus rhythm with rate of 67. TX 163. QRS 94. QT 325. QTC 341. Normal axis. LVH. No acute ST change. Medical Decision Making - Medical Decision Making Patient reevaluated and resting comfortably in bed. Patient and family updated on results and plan. Case discussed with Dr. Gómez, covering Dr. Singer, who will admit. Neurology will be placed on consult. Patient will be covered with antibiotics for potential pneumonia. - Lab Data Result diagrams: 07/09/21 08:09 07/09/21 08:09 Lab Results 07/09/21 07/09/21 07/09/21 Range/Units 08:09 08:09 08:09 WBC 8.6 (3.8-10.6) k/uL RBC 4.54 (3.80-5.40) m/uL Hgb 13.0 (11.4-16.0) gm/dL Hct 39.4 (34.0-46.0) % MCV 86.6 (80.0-100.0) fL MCH 28.5 (25.0-35.0) pg MCHC 32.9 (31.0-37.0) g/dL RDW 14.2 (11.5-15.5) % Plt Count 219 (150-450) k/uL MPV 7.5 Neutrophils % 69 % Lymphocytes % 17 % Monocytes % 7 % Eosinophils % 5 % Basophils % 1 % Neutrophils # 5.9 (1.3-7.7) k/uL Lymphocytes # 1.5 (1.0-4.8) k/uL Monocytes # 0.6 (0-1.0) k/uL Eosinophils # 0.4 (0-0.7) k/uL Basophils # 0.1 (0-0.2) k/uL PT 11.6 (9.0-12.0) sec INR 1.1 (<1.2) APTT 20.1 L (22.0-30.0) sec Sodium 139 (137-145) mmol/L Potassium 2.9 L (3.5-5.1) mmol/L Chloride 104 (98-107) mmol/L Carbon Dioxide 27 (22-30) mmol/L Anion Gap 8 mmol/L BUN 12 (7-17) mg/dL Creatinine 0.79 (0.52-1.04) mg/dL Est GFR (CKD-EPI)AfAm 85 (>60 ml/min/1.73 sqM) Est GFR (CKD-EPI)NonAf 74 (>60 ml/min/1.73 sqM) Glucose 127 H (74-99) mg/dL Calcium 9.3 (8.4-10.2) mg/dL Total Bilirubin 0.7 (0.2-1.3) mg/dL AST 30 (14-36) U/L ALT 23 (4-34) U/L Alkaline Phosphatase 45 (38-126) U/L Total Protein 6.3 (6.3-8.2) g/dL Albumin 3.5 (3.5-5.0) g/dL - Radiology Data Radiology results: report reviewed (CT brain and CTA did not reveal acute abnormality.), image reviewed (Chest x-ray shows possible posterior infiltrate.) Disposition Clinical Impression: TIA (transient ischemic attack) Disposition: ADMITTED IP TO THIS HOSP Is patient prescribed a controlled substance at d/c from ED?: No Referrals: Rolf Singer MD [Primary Care Provider] - 1-2 days Time of Disposition: 09:54
--- NOTE | 2021-07-09 09:01 | CT ---
EXAMINATION TYPE: CT brain wo con for TPA DATE OF EXAM: 07/09/2021 COMPARISON: None INDICATION: Neurodeficit acute stroke DLP: 1062 mGycm, Automated exposure control for dose reduction was used. CONTRAST: None CT of the brain is performed utilizing 3 mm thick sections through the posterior fossa and 3 mm thick sections through the remaining calvarium. Study is performed within 24 hours of arrival to the hosp ital. No abnormal hyperdensity is present to suggest an acute intracranial hemorrhage. No mass lesion is evident. No acute infarcts are evident. Some minimal hypodensities in the periventricular regions. This may be more focal in the anterior left basal ganglion. This was present 07/01/2021 and appears stable. Ventricles and sulci are appropriate for the patient age. Paranasal sinuses and mastoid air cells within the [id number] are clear. IMPRESSIONS: 1. Acute intracranial process not radiographically apparent. Consider follow-up MRI 2. Mild periventricular white matter changes. This is more focal within the left basal ganglion but p resent previously.
[2021-07-09 09:02] LABS: Albumin 3.5 g/dL (3.5-5.0); Calcium 9.3 mg/dL (8.4-10.2); Potassium 2.9 mmol/L (3.5-5.1); Total Bilirubin 0.7 mg/dL (0.2-1.3); Total Protein 6.3 g/dL (6.3-8.2)
[2021-07-09 09:04] LABS: INR 1.1 (<1.2); Prothrombin Time 11.6 sec (9.0-12.0)
[2021-07-09 09:07] LABS: Partial Thromboplastin Time 20.1 sec (22.0-30.0)
[2021-07-09 09:09] LABS: Basophils # (A) 0.1 k/uL (0-0.2); Basophils % (A) 1 %; Eosinophils # (A) 0.4 k/uL (0-0.7); Eosinophils % (A) 5 %; HCT 39.4 % (34.0-46.0); Lymphocytes # (A) 1.5 k/uL (1.0-4.8); Lymphocytes % (A) 17 %; MCH 28.5 pg (25.0-35.0); MCHC 32.9 g/dL (31.0-37.0); MCV 86.6 fL (80.0-100.0); Mean Platelet Volume 7.5; Monocytes # (A) 0.6 k/uL (0-1.0); Monocytes % (A) 7 %; Neutrophils # (A) 5.9 k/uL (1.3-7.7); Neutrophils % (A) 69 %; Platelet Count 219 k/uL (150-450); RBC 4.54 m/uL (3.80-5.40); RDW 14.2 % (11.5-15.5); WBC 8.6 k/uL (3.8-10.6)
--- NOTE | 2021-07-09 09:12 | CT ---
EXAMINATION TYPE: CT angio head neck DATE OF EXAM: 07/09/2021 HISTORY: Neurodeficit COMPARISON: None CT DLP: 446.4 mGycm. Automated Exposure Control for Dose Reduction was Utilized. TECHNIQUE: CTA scan of the neck is performed with IV Contrast, patient injected with 65 mL of Isovue 370, axial images are obtained, coronal and sagittal reformatted images are reviewed. Three-D recons tructed images are created on an independent workstation and reviewed. Source images are reviewed. FINDINGS: Carotid/Vascular Structures: There is some plaquing present at the external carotid artery origin on the left. There is tortuosity of the bilateral common there appears to be a large innominate giving r ise to the right subclavian and left common carotid arteries. Vertebral arteries appear codominant. I nternal carotid arteries are patent to the skull base. Common carotid arteries bifurcate normally int o internal and external carotid arteries. No significant stenosis evident. There appears be a low jamarcus eoff of the left external carotid artery. Cervical of [place]: Vertebral basilar system appears normal. Posterior cerebral vasculature is unrema rkable. Internal carotid arteries bifurcate normally into A1 and M1 segments. Right A1 segment is hyp oplastic. A2 segments are normal. The anterior communicating artery is patent. Left Posterior communi cating artery is absent. Right posterior communicating artery is patent. IMPRESSION: 1. No flow-limiting stenosis bilateral carotid bifurcations. 2. Normal variation [facility] [place] NASCET criteria was used in interpretation of this exam?
--- NOTE | 2021-07-09 09:13 | XR ---
EXAMINATION TYPE: XR chest 2V DATE OF EXAM: 07/09/2021 COMPARISON: 07/04/2021 INDICATION: Altered mental status TECHNIQUE: Frontal and lateral views of the chest are obtained. FINDINGS: The heart size is normal. The pulmonary vasculature is normal. Posterior infiltrate is present. Correlate for atelectasis and pneumonia.. IMPRESSION: 1. Co[place] for a posterior infiltrate. Follow-up can be performed.
[2021-07-09] MEDS ORDERED: AZITHROMYCIN 500 MG in SODIUM CHLORIDE 0.9% 250 ML IVPB STA (09:55)
[2021-07-09] MEDS ORDERED: ASPIRIN 325 MG TAB PO STA (09:55)
[2021-07-09] MEDS ORDERED: PNEUMONIA PROTOCOL UTILIZED 1 EACH MISC PO PRN (09:55)
[2021-07-09] MEDS: SODIUM CHLORIDE 0.9% 1,000 ML IV SCH (10:42)
[2021-07-09] MEDS ORDERED: POTASSIUM CHLORIDE ER 20 MEQ TAB.ER PO STA (13:07)
[2021-07-09] MEDS: ATORVASTATIN 20 MG TAB PO SCH (21:08)
[2021-07-09] MEDS: POTASSIUM CHLORIDE ER 20 MEQ TAB.ER PO SCH (21:08)
[2021-07-09] MEDS: lisinopriL 10 MG TAB PO SCH (21:08)
--- NOTE | 2021-07-09 22:13 | P.HPIM ---
History of Present Illness H&P Date: 07/09/21 Chief Complaint: Weakness Patient is a 76-year-old female with a known history of hypertension, diabetes type 2, history of CVA/TIA, osteoarthritis and recent admission with possible viral meningitis/encephalitis and was treated empirically with acyclovir and also treated for pneumonia presents to ER status post fall. Patient was discharged from the hospital on 07/07/2021. Patient states that she was doing well until this morning and suddenly felt dizzy and weakness in her legs and landed on the floor. EMS was called by her and helped her to the bathroom. Afterwards patient was talking gibberish and also [id number] weakness. She did have mild headache. Patient was brought to ER for evaluation. Weakness and slurred speech resolved within a minute. Patient is currently more awake and oriented. Denies any weakness on the right side now. No complaints of head injury or neck pain. CT head showed acute intracranial process not radiologically apparent. Mild periventricular white matter changes. CT angiogram of the neck showed no flow-limiting stenosis bilateral carotid bifurcations. Normal variation [place]. Chest x-ray showed palpable posterior infiltrate. EKG showed sinus rhythm. Laboratory data showed WBC 8.6 hemoglobin 13.0 and platelets 219 Sodium 139 potassium 2.9 chloride 104 bicarb is 27 BUN 12 and creatinine 0.79 AST 30 ALT 23 and alk phos 45 and troponin x1 negative CRP less than 0.5 and albumin 3.5. Review of Systems Constitutional: Patient denies any fever or chills . No generalized weakness or weight loss. Abdomen: Patient denied nausea vomiting and diarrhea and abdominal pain. Cardiovascular: Patient denies any chest pain or short of breath no palpitations. Respiratory: patient denied any cough or sputum production. No shortness of breath Neurologic: Patient denied any numbness or tingling headache. Musculoskeletal: Patient denies any complaints of joint swelling or deformity. Skin: Negative Psychiatric: Negative Endocrine: No heat or cold intolerance. No recent weight gain. Genitourinary: No dysuria or hematuria. All other 14 point ROS negative except the above Past Medical History Past Medical History: CVA/TIA, Diabetes Mellitus, Hyperlipidemia, Hypertension, Osteoarthritis (OA) Additional Past Medical History / Comment(s): diet controled diabetic, checks bs occ, takes no meds. cataracats,bladder infection, spinal meningitis History of Any Multi-Drug Resistant Organisms: None Reported Past Surgical History: Adenoidectomy, Cholecystectomy, Tubal Ligation Additional Past Surgical History / Comment(s): cysts removed from face Past Anesthesia/Blood Transfusion Reactions: No Reported Reaction Additional Past Anesthesia/Blood Transfusion Reaction / Comment(s): cl austerphobia Past Psychological History: No Psychological Hx Reported Smoking Status: Never smoker Past Alcohol Use History: Occasional Past Drug Use History: None Reported - Past Family History Father Additional Family Medical History / Comment(s): from "hardening of the arteries" Mother Family Medical History: CVA/TIA, Myocardial Infarction ([place]) Medications and Allergies Home Medications Medication Instructions Recorded Confirmed Type lisinopriL [Zestril] 10 mg PO HS 10/05/15 07/09/21 History Atorvastatin Calcium [Lipitor] 20 mg PO HS 11/04/20 07/09/21 History Fluticasone Nasal [place] [Flonase 1 - 2 spray EA NOSTRIL DAILY 07/01/21 07/09/21 History Nasal [place]] Cefuroxime Axetil [Ceftin] 500 mg PO BID 7 Days #14 tab 07/07/21 07/09/21 Rx Doxycycline [Vibramycin] 100 mg PO BID #14 cap 07/07/21 07/09/21 Rx Allergies Allergy/AdvReac Type Severity Reaction Status Date / Time neomycin Allergy Rash/Hives Verified 07/09/21 13:26 Sulfa (Sulfonamide Allergy Dyspnea Verified 07/09/21 13:26 Antibiotics) tobramycin [From Tobrex] Allergy Swelling Verified 07/09/21 13:26 Physical Exam Vitals: Vital Signs Temp Pulse Resp BP Pulse Ox 07/09/21 14:00 66 18 145/79 95 07/09/21 12:00 63 16 164/89 95 07/09/21 11:00 61 16 131/93 94 L 07/09/21 09:59 70 176/92 97 07/09/21 09:27 61 13 176/117 94 L 07/09/21 08:50 63 16 170/82 97 07/09/21 08:21 98.2 F 72 16 160/81 93 L Intake and Output 07/09/21 07/09/21 07/09/21 06:59 14:59 22:59 Other: Weight 81.647 kg PHYSICAL EXAMINATION: Patient is lying in the bed comfortably, no acute distress, awake alert and oriented.. HEENT: Normocephalic. Neck is supple. Pupils reactive. Nostrils clear. Oral cavity is moist. Neck reveals no JVD, carotid bruits, or thyromegaly. CHEST EXAMINATION: Trachea is central. Symmetrical expansion. Lung bell clear to auscultation and percussion. CARDIAC: Normal S1, S2 with no gallops. No murmurs ABDOMEN: Soft. Bowel sounds normal. No organomegaly. No abdominal bruits. Extremities: reveal no edema. No clubbing or cyanosis Neurologically awake, alert, oriented x3 with well-coordinated movements. No focal deficits noted Skin: No rash or skin lesions. Psychiatric: Cooperative. Nonsuicidal Musculoskeletal: No joint swelling or deformity. Normal range of motion. Results CBC & Chem 7: 07/09/21 08:09 07/09/21 08:09 Labs: Abnormal Lab Results - Last 24 Hours (Table) 07/09/21 07/09/21 Range/Units 08:09 08:09 APTT 20.1 L (22.0-30.0) sec Potassium 2.9 L (3.5-5.1) mmol/L Glucose 127 H (74-99) mg/dL Thrombosis Risk Factor Assmnt - DVT/VTE Prophylaxis DVT/VTE Prophylaxis: Pharmacologic Prophylaxis ordered Assessment and Plan Assessment: Transient slurred speech and right-sided weakness as noticed by EMS. Possible TIA versus generalized weakness. Severe hypokalemia 2.9 Recent admission with possible viral encephalitis status Acyclovir course. Possible pneumonia Hypertension Hyperlipidemia Osteoarthritis History of CVA/TIA Diet-controlled diabetes type 2 DVT prophylaxis with heparin subcu plan: Patient will continue IV hydration and replace electrolytes/potassium. Follow- up repeat chest x-ray. Continue with empiric antibiotics in the form of ceftriaxone and azithromycin. Procalcitonin level was ordered. Neurology and ID was consulted. 2D echo and EEG, MRI was ordered. Continue with home medications and follow-up closely. Time with Patient: Greater than 30
--- NOTE | 2021-07-09 22:37 | P.CONS ---
History of Present Illness - Reason for Consult Consult date: 07/09/21 - History of Present Illness Patient is a 76-year female who was recently admitted at this facility patient did have some fever and mental status changes concerning for possible encephalitis patient did have a CSF examination did shows mild elevated protein glucose was normal and did have a mild elevated white count patient was treated with acyclovir however subsequently viral PCR came back negative and the patient was still running a fever and there was a question of possible pneumonia and the patient fever responded to the Rocephin and doxycycline after stabilization the patient was discharged home on oral Ceftin and doxycycline, patient has not been brought back to the hospital by EMS after apparently the patient did have a fall, patient mention she was walking and lost balance and fell down patient denies hitting her head or losing consciousness patient apparently did have some gravel speech and concern for possible TIA with the patient has been admitted to the hospital, patient mention no fever since she left the hospital and did not have any fever on arrival to the ER patient headache has improved she is currently breathing comfortably room air denies any chest pain or shortness with occasional cough no abdominal pain no diarrhea and no urinary symptoms, patient on presentation hospital did not have any fever mild hypoxemia but no need for supplemental oxygen did have normal white count kidney function was normal liver enzymes are normal patient did have a CT of the brain did not show any acute abnormality CT angiogram with no flow-limiting stenosis bilateral carotid bifurcation normal [place], patient did have a chest x-ray concerning for posterior infiltrate possible pneumonia patient was started on Rocephin and Zithromax has been admitted to hospital infectious disease was consulted for further management Past Medical History Past Medical History: CVA/TIA, Diabetes Mellitus, Hyperlipidemia, Hypertension, Osteoarthritis (OA) Additional Past Medical History / Comment(s): diet controled diabetic, checks bs occ, takes no meds. cataracats,bladder infection, spinal meningitis History of Any Multi-Drug Resistant Organisms: None Reported Past Surgical History: Adenoidectomy, Cholecystectomy, Tubal Ligation Additional Past Surgical History / Comment(s): cysts removed from face Past Anesthesia/Blood Transfusion Reactions: No Reported Reaction Additional Past Anesthesia/Blood Transfusion Reaction / Comm: clausterphobia Past Psychological History: No Psychological Hx Reported Smoking Status: Never smoker Past Alcohol Use History: Occasional Past Drug Use History: None Reported - Past Family History Father Additional Family Medical History / Comment(s): from "hardening of the arteries" Mother Family Medical History: CVA/TIA, Myocardial Infarction ([place]) Medications and Allergies Home Medications Medication Instructions Recorded Confirmed Type lisinopriL [Zestril] 10 mg PO HS 10/05/15 07/09/21 History Atorvastatin Calcium [Lipitor] 20 mg PO HS 11/04/20 07/09/21 History Fluticasone Nasal [place] [Flonase 1 - 2 spray EA NOSTRIL DAILY 07/01/21 07/09/21 History Nasal [place]] Cefuroxime Axetil [Ceftin] 500 mg PO BID 7 Days #14 tab 07/07/21 07/09/21 Rx Doxycycline [Vibramycin] 100 mg PO BID #14 cap 07/07/21 07/09/21 Rx Allergies Allergy/AdvReac Type Severity Reaction Status Date / Time neomycin Allergy Rash/Hives Verified 07/09/21 13:26 Sulfa (Sulfonamide Allergy Dyspnea Verified 07/09/21 13:26 Antibiotics) tobramycin [From Tobrex] Allergy Swelling Verified 07/09/21 13:26 Physical Exam Vitals: Vital Signs Temp Pulse Resp BP Pulse Ox 07/09/21 14:00 66 18 145/79 95 07/09/21 12:00 63 16 164/89 95 07/09/21 11:00 61 16 131/93 94 L 07/09/21 09:59 70 176/92 97 07/09/21 09:27 61 13 176/117 94 L 07/09/21 08:50 63 16 170/82 97 07/09/21 08:21 98.2 F 72 16 160/81 93 L Intake and Output 07/08/21 07/09/21 07/09/21 22:59 06:59 14:59 Other: Weight 81.647 kg Results CBC & Chem 7: 07/09/21 08:09 07/09/21 08:09 Labs: Abnormal Lab Results - Last 24 Hours (Table) 07/09/21 07/09/21 Range/Units 08:09 08:09 APTT 20.1 L (22.0-30.0) sec Potassium 2.9 L (3.5-5.1) mmol/L Glucose 127 H (74-99) mg/dL Assessment and Plan Plan: 1patient was recently treated at this facility with initial concern for possible encephalitis though CSF viral PCR was negative and patient fever responded to the Rocephin and Doxy, now with the chest x-ray some posterior infiltrate underlying pneumonia less likely bilateral excluded. 2continue with Rocephin and Zithromax. 3we will check a CRP procalcitonin and obtain a sputum for gram stain and culture. We will follow on clinical condition and cultures to further adjust medication if needed Thank you for this consultation will follow this patient along with you Time with Patient: Less than 30
[2021-07-10] MEDS: SODIUM CHLORIDE 0.9% 1,000 ML IV SCH ×3 (00:05→23:30)
[2021-07-10] MEDS: HEPARIN SODIUM,PORCINE/PF 5,000 UNIT/0.5 ML SYRINGE SQ SCH ×3 (00:06→17:06)
[2021-07-10 06:43] LABS: Basophils # (A) 0.1 k/uL (0-0.2); Basophils % (A) 1 %; Eosinophils # (A) 0.5 k/uL (0-0.7); Eosinophils % (A) 6 %; HCT 40.3 % (34.0-46.0); Lymphocytes # (A) 1.6 k/uL (1.0-4.8); Lymphocytes % (A) 18 %; MCH 28.8 pg (25.0-35.0); MCHC 32.4 g/dL (31.0-37.0); Monocytes # (A) 0.6 k/uL (0-1.0); Monocytes % (A) 6 %; Neutrophils % (A) 68 %; Platelet Count 245 k/uL (150-450); RBC 4.53 m/uL (3.80-5.40); RDW 14.6 % (11.5-15.5); WBC 8.8 k/uL (3.8-10.6)
[2021-07-10 07:19] LABS: African American GFR (CKD) >90 (>60 ml/min/1.73 sqM); Anion Gap 10 mmol/L; Blood Urea Nitrogen 11 mg/dL (7-17); Calcium 9.2 mg/dL (8.4-10.2); Carbon Dioxide 25 mmol/L (22-30); Chloride 106 mmol/L (98-107); Glucose 119 mg/dL (74-99); Non-African American GFR(CKD) 86 (>60 ml/min/1.73 sqM); Sodium 141 mmol/L (137-145)
[2021-07-10 07:27] LABS: Potassium 3.5 mmol/L (3.5-5.1)
--- NOTE | 2021-07-10 08:26 | P.CNNES ---
History of Present Illness Consult date: 07/09/21 Requesting physician: Dorian Santos Reason for Consult: tia, recent meningitis History of Present Illness: Patient is a 76-year-old female, who was recently seen in the hospital for viral meningitis on 07/01/2021. Please refer to my note for details. Patient has presented with acute cephalalgia, neck pain, speech difficulty. Patient underwent lumbar puncture on 07/01/2021, in which CSF was colorless and clear, WBC count 33, with 96% monocytes and 4% polynuclear cells. RBCs 74, CSF protein 107 and glucose 68. Patient's viral cultures came back negative including HSV-1 and HSV 2 PCR. Cryptococcal antigen negative. Acyclovir was discontinued as per recommendation from ID. Patient was discharged on 07/06/2021 on Ceftin 500 mg twice a day for 7 days and doxycycline 100 mg twice a day for 7 days. Patient was doing well, but returned to the hospital by ambulance early this morning at 8:20 AM. Patient's was also present at this time. Patient states that at around 7:30 AM this morning she was walking to the bathroom, but did not make it. She became dizzy, lost balance, couldn't control and fell on the back and side. She did not trip on anything (as mentioned in the EMS flow sheet). She could not get up, did not pass out. Patient's called the EMS. When they arrived, patient was laying on the floor. They helped her up. Patient wanted to go to the bathroom. They helped her to the restroom. When she was done, and they tried to get her up, patient started talking completely out of context. The words were clear, but her speech did not make sense, as to what was asked. There was no slurring, per patient's , she spoke sentences but made no sense. no facial droop, no focal weakness, only generalized weakness. In the EMS sheet it is reported that patient has right facial droop and right-sided weakness, although patient's completely declined any droopiness of the face or any focal weakness, was just generalized weak. Her vitals at the scene was blood pressure 174/94 pulse 72, respiration 18, saturation 94%, blood sugar 146. Vital signs on arrival blood pressure 160/81, pulse is 72, temperature 98.2. Apparently while in the ER, patient was still having speech difficulty, talking gibberish, out of context. The speech difficulty lasted for about 30 minutes. Stroke code was activated in the ED. ED staff discuss case with stroke neurologist Dr. Randhawa, and patient was considered not a candidate for TPA secondary to last known well greater than 4.5 hours. In addition there is potential risk with recent meningitis and lumbar puncture. Risks felt to outweigh the potential benefits. At present patient complains of headache, that comes and goes. She rates it 5/10 involving her eyes, in back of head. It is occurring about 3-4 times a day , lasting for 10 minutes. Patient states that she does take aspirin 325 mg daily at night. She states that at this time she sometimes forgets words, calls things by different names. One time she called her as her mother. Patient's blood test shows normal CBC, PT/PTT, sodium 139, potassium 2.9, normal renal functions. Hepatic panel is normal, troponin negative. ESR is 19, CRP <0.5. CT head showed no acute intracranial process. Mild periventricular white matter changes. This is more focal within the left basal ganglia on but present previously. I personally reviewed CT head, showed no acute process. CTA of head and neck showed no flow-limiting stenosis bilateral carotid bifurcations. Normal variation [place]. EKG shows sinus rhythm, left ventricular hypertrophy. Chest x-ray showed correlation for posterior infiltrate. Review of Systems Generalized weakness, difficulty walking. No chest pain, abdominal pain, nausea vomiting diarrhea. All 14 point of uses some reviewed, unremarkable except as mentioned above in HPI. Past Medical History Past Medical History: CVA/TIA, Diabetes Mellitus, Hyperlipidemia, Hypertension, Osteoarthritis (OA) Additional Past Medical History / Comment(s): diet controled diabetic, checks bs occ, takes no meds. cataracats,bladder infection, spinal meningitis History of Any Multi-Drug Resistant Organisms: None Reported Past Surgical History: Adenoidectomy, Cholecystectomy, Tubal Ligation Additional Past Surgical History / Comment(s): cysts removed from face Past Anesthesia/Blood Transfusion Reactions: No Reported Reaction Additional Past Anesthesia/Blood Transfusion Reaction / Comment(s): clausterphobia Past Psychological History: No Psychological Hx Reported Smoking Status: Never smoker Past Alcohol Use History: Occasional Past Drug Use History: None Reported - Past Family History Father Additional Family Medical History / Comment(s): from "hardening of the arteries" Mother Family Medical History: CVA/TIA, Myocardial Infarction ([place]) Medications and Allergies Home Medications Medication Instructions Recorded Confirmed Type lisinopriL [Zestril] 10 mg PO HS 10/05/15 07/09/21 History Atorvastatin Calcium [Lipitor] 20 mg PO HS 11/04/20 07/09/21 History Fluticasone Nasal [place] [Flonase 1 - 2 spray EA NOSTRIL DAILY 07/01/21 07/09/21 History Nasal [place]] Cefuroxime Axetil [Ceftin] 500 mg PO BID 7 Days #14 tab 07/07/21 07/09/21 Rx Doxycycline [Vibramycin] 100 mg PO BID #14 cap 07/07/21 07/09/21 Rx Allergies Allergy/AdvReac Type Severity Reaction Status Date / Time neomycin Allergy Rash/Hives Verified 07/09/21 13:26 Sulfa (Sulfonamide Allergy Dyspnea Verified 07/09/21 13:26 Antibiotics) tobramycin [From Tobrex] Allergy Swelling Verified 07/09/21 13:26 Physical Examination - Vital Signs Vital Signs: Vital Signs Temp Pulse Resp BP Pulse Ox 07/09/21 12:00 63 16 164/89 95 07/09/21 11:00 61 16 131/93 94 L 07/09/21 09:59 70 176/92 97 07/09/21 09:27 61 13 176/117 94 L 07/09/21 08:50 63 16 170/82 97 07/09/21 08:21 98.2 F 72 16 160/81 93 L Intake and Output 07/08/21 07/09/21 07/09/21 22:59 06:59 14:59 Other: Weight 81.647 kg Patient is an elderly female, very pleasant, in no acute distress. Patient is alert awake oriented to time place and person. Speech and language functions are normal. Patient can name and repeat very well. Attention, concentration and fund of knowledge is adequate. On cranial examination, pupils are equal, round and reacting to light, visual bell are full on confrontation, with no neglect on double simultaneous stimulation. Her extraocular muscles are intact with no nystagmus. Face is symmetric, tongue protrudes to the midline. Palatal elevation and sensation normal, hearing and shoulder shrug normal, facial sensation normal. Shoulder shrug normal. On muscle strength testing, there is no pronator drift and the strength is normal in arms and legs distally and proximally. Deep tendon reflexes are 1+ at bilateral biceps and brachioradialis, 1 at the knees, trace ankles and plantars are flat bilaterally. Sensory to touch is equal with no neglect. Cerebellar function showed no ataxia for [id number] testing. No dysdiadochokinesia. Tone and bulk of muscles normal. Gait patient required assist of 2, with generalized weakness. On general examination, there is no carotid bruit or murmur, S1-S2 audible. Abdomen is soft nontender. No organomegaly, bowel sounds present Chest is clear to auscultation. Peripheral pulses are present. No edema. Neck is supple. Results - Laboratory Findings CBC and BMP: 07/10/21 05:30 07/10/21 05:30 Abnormal Lab Findings: Abnormal Labs 07/09/21 07/09/21 08:09 08:09 APTT 20.1 L Potassium 2.9 L Glucose 127 H Assessment and Plan Assessment: * 76-year-old female with recent history of viral meningitis, came with a fall related to generalized weakness, followed by speech difficulty with a fluent expressive aphasia. Rule out TIA versus focal seizure. Symptoms resolved in 30 minutes. Patient's NIH stroke scale is 0. * Borderline diabetes, with A1c 7.5 * Hypertension * Hyperlipidemia Plan: * Patient will undergo stroke/TIA workup. * Aspirin 325 mg daily. * MRI of the brain with and without contrast * EEG rule out epileptiform activity * 2-D echo with bubble study to rule out PFO * Patient's hemoglobin A1c 7.5. Need to optimize control of diabetes to target A1c <7.0 * Fasting lipid panel. Patient on Lipitor 20 mg at bedtime at home. * Telemetry monitoring rule out any arrhythmia. * Patient's headaches have improved, but not resolved. If no obvious answers identified with the above testing, would consider a repeat lumbar puncture. Discussed in detail with infectious disease. * DVT prophylaxis, patient on heparin 5000 units subcu * PT and OT. * Neurology will follow. Thank you for the consult.
[2021-07-10] MEDS: POTASSIUM CHLORIDE ER 20 MEQ TAB.ER PO SCH ×2 (08:31→20:40)
[2021-07-10] MEDS: ASPIRIN 325 MG TAB PO SCH (08:31)
[2021-07-10] MEDS: AZITHROMYCIN 500 MG TAB PO SCH (08:31)
--- NOTE | 2021-07-10 11:04 | XR ---
EXAMINATION TYPE: XR chest 1V portable DATE OF EXAM: 07/10/2021 COMPARISON: 07/09/2021 INDICATION: Pneumonia TECHNIQUE: Single frontal view of the chest is obtained. FINDINGS: The heart size is normal. The pulmonary vasculature is normal. Minimal retrocardiac type may be present. Some mild platelike atelectasis may be along the right diap hragm. Minimal left pleural effusion is not excluded. Follow-up can be performed. IMPRESSION: 1. Left lower lobe infiltrate and/or pleural effusion. Follow-up is recommended. 2. Underlying hiatal hernia is not excluded. 3. Mild infiltrate at the right base may be related atelectasis.
--- NOTE | 2021-07-10 14:58 | P.PN ---
Subjective Progress Note Date: 07/10/21 Patient is a 76-year-old female with a known history of hypertension, diabetes type 2, history of CVA/TIA, osteoarthritis and recent admission with possible viral meningitis/encephalitis and was treated empirically with acyclovir and also treated for pneumonia presents to ER status post fall. Patient was discharged from the hospital on 07/07/2021. Patient states that she was doing well until this morning and suddenly felt dizzy and weakness in her legs and landed on the floor. EMS was called by her and helped her to the bathroom. Afterwards patient was talking gibberish and also vrtgstc-[id number] weakness. She did have mild headache. Patient was brought to ER for evaluation. Weakness and slurred speech resolved within a minute. Patient is currently more awake and oriented. Denies any weakness on the right side now. No complaints of head injury or neck pain. CT head showed acute intracranial process not radiologically apparent. Mild periventricular white matter changes. CT angiogram of the neck showed no flow-limiting stenosis bilateral carotid bifurcations. Normal variation [place]. Chest x-ray showed palpable posterior infiltrate. EKG showed sinus rhythm. Laboratory data showed WBC 8.6 hemoglobin 13.0 and platelets 219 Sodium 139 potassium 2.9 chloride 104 bicarb is 27 BUN 12 and creatinine 0.79 AST 30 ALT 23 and alk phos 45 and troponin x1 negative CRP less than 0.5 and albumin 3.5. 07/10/2021 Patient is seen and evaluated in follow-up this morning currently being closely monitored by neurology and infectious disease. Chest x-ray shows pneumonia of the left lower lobe and right bases questionable with atelectasis as well. Patient is maintained on ceftriaxone and Zithromax with infectious disease following and also neurological workup for questionable TIA as patient had some weakness and MRI, EEG, and echo with bubble study is ordered. Will consult pulmonary as patient is also continued on 2 L via nasal cannula and continues with some shortness of breath. Patient is currently afebrile and denies any nausea or vomiting or chest pain at this time. Review of systems: Constitutional: No reports of fatigue, fever, or chills Cardiovascular: No reports of chest pain or palpitations Respiratory: reports of shortness of breath GI: No reports of nausea, vomiting, or diarrhea : No reports of dysuria or retention Neurovascular: reports of weakness All medications have been reviewed Active Medications Aspirin (Aspirin 325 Mg Tab) 325 mg PO DAILY [facility] Last Admin: 07/10/21 08:31 Dose: 325 mg Atorvastatin Calcium (Atorvastatin 20 Mg Tab) 20 mg PO HS [facility] Last Admin: 07/09/21 21:08 Dose: 20 mg Azithromycin (Azithromycin 500 Mg Tab) 500 mg PO DAILY [facility]; Protocol Stop: 07/11/21 09:01 Last Admin: 07/10/21 08:31 Dose: 500 mg Heparin Sodium (Porcine) (Heparin Sodium,Porcine/Pf 5,000 Unit/0.5 Ml Syringe) 5,000 unit SQ Q8HR [facility] Last Admin: 07/10/21 08:31 Dose: 5,000 unit Sodium Chloride (Saline 0.9%) 1,000 mls @ 75 mls/hr IV .[id number] [facility] Last Admin: 07/10/21 11:33 Dose: Not Given Ceftriaxone Sodium 2 gm/ (Sodium Chloride) 50 mls @ 100 mls/hr IVPB Q24HR [facility]; Protocol Stop: 07/13/21 09:29 Last Admin: 07/10/21 09:12 Dose: 100 mls/hr Lisinopril (Lisinopril 10 Mg Tab) 10 mg PO HS [facility] Last Admin: 07/09/21 21:08 Dose: 10 mg Miscellaneous Information (Pneumonia Protocol Utilized 1 Each Misc) 1 each PO ONCE PRN PRN Reason: Per Protocol Potassium Chloride (Potassium Chloride Er 20 Meq Tab.Er) 20 meq PO BID [facility] Stop: 07/10/21 21:01 Last Admin: 07/10/21 08:31 Dose: 20 meq PHYSICAL EXAMINATION: Patient is sitting up in the chair, awake alert and oriented 3.. HEENT: Normocephalic. Neck is supple. Pupils reactive. Nostrils clear. Oral cavity is moist. Neck reveals no JVD, carotid bruits, or thyromegaly. CHEST EXAMINATION: Trachea is central. Symmetrical expansion. Diminished breath sounds bilaterally with some scattered rhonchi noted CARDIAC: S1, S2 are muffled ABDOMEN: Soft. Bowel sounds normal. No organomegaly. No abdominal bruits. Extremities: reveal no edema. No clubbing or cyanosis Neurologically awake, alert, oriented x3 with well-coordinated movements. No focal deficits noted Skin: No rash or skin lesions. Psychiatric: Cooperative. Non-suicidal Musculoskeletal: No joint swelling or deformity. Normal range of motion. Assessment: Transient slurred speech and right-sided weakness as noticed by EMS. Possible TIA versus generalized weakness. Severe hypokalemia 2.9 Recent admission with possible viral encephalitis status Acyclovir course. Possible pneumonia Hypertension Hyperlipidemia Osteoarthritis History of CVA/TIA Diet-controlled diabetes type 2 DVT prophylaxis with heparin subcu plan: Patient will continue IV hydration and replace electrolytes/potassium. Repeat chest x-ray today shows left lower lobe infiltrate and/or pleural effusion with mild infiltrate at the right base may be atelectasis and patient is also maintained on antibiotics in the form of ceftriaxone and Zithromax with ID following. Patient is currently maintained on 2 L via nasal cannula does not require oxygen in the outpatient setting. Recommend to wean as tolerated as oxygen saturation is 98%. Neurology workup in process and patient is awaiting EEG, MRI, and echo study with bubble study to rule out PFO. Patient was recently hospitalized for questionable meningitis and infectious disease is following. Will consult pulmonary and appreciate input and recommendations. Recommend repeat labs and will continue to monitor closely. Potassium improved at 3.5 status post replacement and will monitor closely. Due to multiple, looks medical issues, prognosis is guarded. The impression and plan of care has been dictated by Sheri Hawkins, Nurse Practitioner as directed. Dr. Stephon MD I have performed a history and examination and MDM of this patient, discussed the same with the dictator, and agree with the dictator's assessment and plan as written ,documented as a scribe. Based on total visit time, I have performed more than 50% of the visit. Objective - Vital Signs Vital signs: Vital Signs Temp 99.4 F 07/10/21 13:07 Pulse 76 07/10/21 13:07 Resp 18 07/10/21 13:07 BP 138/76 07/10/21 13:07 Pulse Ox 98 07/10/21 13:07 FiO2 Intake & Output 07/09/21 07/10/21 07/10/21 18:59 06:59 18:59 Intake Total 100 Balance 100 Weight 81.647 kg 81.647 kg Intake: Oral 100 Other: Voiding Method Bedside Commode Bedside Commode Diaper Diaper # Voids 1 1 - Labs CBC & Chem 7: 07/10/21 05:30 07/10/21 05:30 Labs: Abnormal Lab Results - Last 24 Hours (Table) 07/10/21 Range/Units 05:30 Glucose 119 H (74-99) mg/dL Microbiology - Last 24 Hours (Table) 07/09/21 09:15 Blood Culture - Preliminary Blood No Growth after 24 hours 07/09/21 09:00 Blood Culture - Preliminary Blood No Growth after 24 hours
[2021-07-10] MEDS: ATORVASTATIN 20 MG TAB PO SCH (20:40)
[2021-07-10] MEDS: lisinopriL 10 MG TAB PO SCH (20:40)
[2021-07-10] MEDS ORDERED: ACETAMINOPHEN TAB 325 MG TAB PO PRN (21:17)
[2021-07-10 22:20] LABS: HSV I IgG Interp POSITIVE (NEGATIVE); HSV II IgG Interp NEGATIVE (NEGATIVE)
[2021-07-11] MEDS: HEPARIN SODIUM,PORCINE/PF 5,000 UNIT/0.5 ML SYRINGE SQ SCH ×4 (00:38→22:43)
[2021-07-11] MEDS: SODIUM CHLORIDE 0.9% 1,000 ML IV SCH (03:21)
--- NOTE | 2021-07-11 08:12 | P.PN ---
Subjective Progress Note Date: 07/10/21 Patient was seen for a follow-up. Patient denies any neurological symptoms. She is still having some issues with word finding difficulty "once in a while". Patient denies any headache. Objective - Vital Signs Vital signs: Vital Signs Temp 98.3 F 07/10/21 23:28 Pulse 74 07/10/21 23:28 Resp 18 07/10/21 23:28 BP 133/76 07/10/21 23:28 Pulse Ox 91 L 07/10/21 23:28 FiO2 Intake & Output 07/10/21 07/10/21 07/11/21 06:59 18:59 06:59 Intake Total 100 240 Balance 100 240 Weight 81.647 kg Intake: Oral 100 240 Other: Voiding Method Bedside Commode Bedside Commode Bedside Commode Diaper Diaper Diaper # Voids 1 1 1 - Exam Patient still appears tremulous. Examination otherwise unchanged. - Labs CBC & Chem 7: 07/10/21 05:30 07/10/21 05:30 Labs: Abnormal Lab Results - Last 24 Hours (Table) 07/09/21 07/10/21 Range/Units 14:52 05:30 Glucose 119 H (74-99) mg/dL HSV I IgG Interpret POSITIVE A (NEGATIVE) Microbiology - Last 24 Hours (Table) 07/09/21 20:54 Gram Stain - Preliminary Sputum Sputum Culture - Preliminary 07/09/21 09:15 Blood Culture - Preliminary Blood No Growth after 24 hours 07/09/21 09:00 Blood Culture - Preliminary Blood No Growth after 24 hours Assessment and Plan Assessment: * 76-year-old female with recent history of viral meningitis, came with a fall related to generalized weakness, followed by speech difficulty with a fluent expressive aphasia. Rule out TIA versus focal seizure. Symptoms resolved in 30 minutes. Patient's NIH stroke scale is 0. * Borderline diabetes, with A1c 7.5 * Hypertension * Hyperlipidemia * Possible pneumonia, on Rocephin and Zithromax. Plan: * Patient will undergo stroke/TIA workup. * Aspirin 325 mg daily. * MRI of the brain with and without contrast pending * EEG rule out epileptiform activity pending * 2-D echo with bubble study to rule out PFO pending * Patient's hemoglobin A1c 7.5. Need to optimize control of diabetes to target A1c <7.0 * Fasting lipid panel. Patient on Lipitor 20 mg at bedtime at home. * Continue Telemetry monitoring rule out any arrhythmia. * Patient's headaches have resolved at this time. Hold off lumbar puncture pending above test results. * DVT prophylaxis, patient on heparin 5000 units subcu * ID following. Patient on azithromycin 500 mg daily and ceftriaxone 2 g every 24 hours. * PT and OT.
--- NOTE | 2021-07-11 08:37 | P.PN ---
Subjective Principal diagnosis: TIA The patient is admitted for TIA workup secondary to fall. MRI and echo is pending. The patient seems to be back to baseline. HSV type I was noted on fluid. Objective - Vital Signs Vital signs: Vital Signs Temp 98.2 F 07/11/21 04:00 Pulse 68 07/11/21 04:00 Resp 18 07/11/21 04:00 BP 148/75 07/11/21 04:00 Pulse Ox 94 L 07/11/21 07:24 FiO2 Intake & Output 07/10/21 07/11/21 07/11/21 18:59 06:59 18:59 Intake Total 240 Balance 240 Intake: Oral 240 Other: Voiding Method Bedside Commode Bedside Commode Diaper Diaper # Voids 1 1 - Constitutional General appearance: Present: average body habitus - EENT Eyes: Absent: abnormal pupil - Neck Neck: Absent: lymphadenopathy - Respiratory Respiratory: bilateral: CTA - Cardiovascular Rhythm: regular Heart sounds: normal: S1, S2 Abnormal Heart Sounds: Absent: S3 Gallop - Gastrointestinal General gastrointestinal: Present: soft. Absent: tenderness - Labs CBC & Chem 7: 07/10/21 05:30 07/10/21 05:30 Labs: Abnormal Lab Results - Last 24 Hours (Table) 07/09/21 Range/Units 14:52 HSV I IgG Interpret POSITIVE A (NEGATIVE) Microbiology - Last 24 Hours (Table) 07/09/21 20:54 Gram Stain - Preliminary Sputum Sputum Culture - Preliminary 07/09/21 09:15 Blood Culture - Preliminary Blood No Growth after 24 hours 07/09/21 09:00 Blood Culture - Preliminary Blood No Growth after 24 hours Assessment and Plan (1) TIA (transient ischemic attack) Current Visit: Yes Status: Acute Code(s): G45.9 - TRANSIENT CEREBRAL ISCHEMIC ATTACK, UNSPECIFIED SNOMED Code(s): 595816160 Plan: Await MRI and EEG with echocardiogram. Anticipate discharge once those are clear. See orders otherwise. Element of viral encephalitis from previous.
--- NOTE | 2021-07-11 10:28 | MR ---
EXAMINATION TYPE: MR brain wo/w con DATE OF EXAM: 07/11/2021 COMPARISON: MR brain 07/01/2021 HISTORY: Difficulty verbalizing, evaluate for TIA/encephalitis. TECHNIQUE: Multiplanar, multisequence images of the brain and brainstem is performed without and with IV contras t, utilizing 8 mL intravenous Gadavist . FINDINGS: There is some artifact on the exam. Diffusion weighted images demonstrate no evidence of a recent infarct or other diffusion abnormality. There is no extra-axial fluid collection or significant change in white matter signal abnormality. The ventricular system and cisternal spaces are normal in size and appearance. The brain volume is age appropriate. Midline structures demonstrate normal morphology. The craniocervical junction appears within normal limits. Post contrast images demonstrate no abnormal enhancement. The dural venous sinuses appear pa tent. The visualized sinuses are essentially clear some minimal mucosal signal changes in the ethmoid air cells and maxillary sinus, and the globes are intact. IMPRESSION: No definite change in white matter signal abnormalities aerated mild sinus disease.
[2021-07-11 10:37] LABS: Chol/HDL Ratio 3.27 Ratio; VLDL Calculation 15.94 mg/dL (5.00-40.00)
[2021-07-11 11:56] LABS: Procalcitonin 0.05 ng/mL (0.02-0.09)
[2021-07-11] MEDS: AZITHROMYCIN 500 MG TAB PO SCH (12:30)
[2021-07-11] MEDS: ASPIRIN 325 MG TAB PO SCH (12:30)
--- NOTE | 2021-07-11 13:38 | EEG ---
ELECTROENCEPHALOGRAM REPORT DATE OF SERVICE: 07/11/2021 PREAMBLE: This is a 76-year-old female who had an episode of expressive aphasia, rule out TIA versus focal seizure. Recent history of viral encephalitis. EEG FINDINGS: This is a 21 channel digital EEG recorded with video component, utilizing 10/20 international system with referential and bipolar montages. Background consists of well developed, well regulated moderate voltage activity in 9-10 hertz alpha, background is posterior dominant and reactive to eye opening and closing. Intermittent focal slowing in arrhythmic theta and delta range was seen in the left temporal region. Photic driving response was not seen. No definitive focal or generalized epileptiform activity was seen. Different stages of sleep were not seen. IMPRESSION: This is an abnormal EEG due to intermittent focal slowing in the arrhythmic theta and delta range over the left temporal region. This is suggestive of focal cortical neuronal dysfunction, may suggest underlying structural abnormality. No definitive epileptiform activity was seen. If your suspicion for seizure is high, suggest prolonged, sleep-deprived EEG. MMODL / IJN: [id number] / ANDRADE
--- NOTE | 2021-07-11 14:55 | P.CNPUL ---
History of Present Illness Consult date: 07/11/21 Requesting physician: Rolf Singer Reason for consult: hypoxemia, pneumonia, abnormal CXR/CT Chief complaint: Possible pneumonia. History of present illness: Pulmonary consult dated 07/11/2021. 76-year-old patient who is a DO NOT RESUSCITATE patient, who was seen in the emergency room, on July 09. She apparently was evaluated there for having fallen, with possible mental status changes. We were consulted for possible pneumonia. The patient denies any pulmonary issues including shortness of breath, cough, wheezing, or phlegm production. The patient has not had any fever or chills. The patient has no known history of any lung disorders or disease. The patient was recently discharged from the hospital for suspected viral meningitis. I believe that was never proven. Currently, she sitting in the chair. She's not on any supplemental oxygen. She's not manifesting any signs or symptoms of respiratory distress. She's not having any pulmonary complaints at this time. She does have a history of CVA, diabetes, hyperlipidemia, hypertension, and osteoarthritis. She is a lifelong nonsmoker. CBC is completely normal. Sodium 141, potassium 3.5, chlorides 106, CO2 25, anion gap 10, BUN 11, creatinine 0.66. The patient's pro-calcitonin level is 0.05. Patient's chest x-rays are reviewed. Some atelectasis at the bases. The patient also has a history of hiatal hernia which is seen on the chest x-ray. No distinct infiltrate in my opinion. Review of Systems REVIEW OF SYSTEMS: CONSTITUTIONAL: Weakness. NEUROLOGIC: Mental status changes, possible CVA. HEENT: [ Negative.] CARDIAC: [Negative.] PULMONARY: [Negative.] GI: [Negative.] : [Negative.] RHEUMATOLOGIC: [ Negative.] IMMUNOLOGIC: [ Negative.] ENDOCRINE: [Negative. ] DERMATOLOGIC: [Negative.] Past Medical History Past Medical History: CVA/TIA, Diabetes Mellitus, Hyperlipidemia, Hypertension, Osteoarthritis (OA) Additional Past Medical History / Comment(s): diet controled diabetic, checks bs occ, takes no meds. cataracats,bladder infection, spinal meningitis History of Any Multi-Drug Resistant Organisms: None Reported Past Surgical History: Adenoidectomy, Cholecystectomy, Tubal Ligation Additional Past Surgical History / Comment(s): cysts removed from face Past Anesthesia/Blood Transfusion Reactions: No Reported Reaction Additional Past Anesthesia/Blood Transfusion Reaction / Comment(s): clausterphobia Past Psychological History: No Psychological Hx Reported Smoking Status: Never smoker Past Alcohol Use History: Occasional Past Drug Use History: None Reported - Past Family History Father Additional Family Medical History / Comment(s): from "hardening of the arteries" Mother Family Medical History: CVA/TIA, Myocardial Infarction ([place]) Medications and Allergies Home Medications Medication Instructions Recorded Confirmed Type lisinopriL [Zestril] 10 mg PO HS 10/05/15 07/09/21 History Atorvastatin Calcium [Lipitor] 20 mg PO HS 11/04/20 07/09/21 History Fluticasone Nasal [place] [Flonase 1 - 2 spray EA NOSTRIL DAILY 07/01/21 07/09/21 History Nasal [place]] Cefuroxime Axetil [Ceftin] 500 mg PO BID 7 Days #14 tab 07/07/21 07/09/21 Rx Doxycycline [Vibramycin] 100 mg PO BID #14 cap 07/07/21 07/09/21 Rx Allergies Allergy/AdvReac Type Severity Reaction Status Date / Time neomycin Allergy Rash/Hives Verified 07/09/21 13:26 Sulfa (Sulfonamide Allergy Dyspnea Verified 07/09/21 13:26 Antibiotics) tobramycin [From Tobrex] Allergy Swelling Verified 07/09/21 13:26 Physical Exam Osteopathic Statement: *. No significant issues noted on an osteopathic structural exam other than those noted in the History and Physical/Consult. Vitals: Vital Signs Temp Pulse Resp BP Pulse Ox 07/11/21 11:57 98.0 F 83 18 182/98 96 07/11/21 08:00 98.5 F 73 20 155/74 92 L 07/11/21 07:24 94 L 07/11/21 04:00 98.2 F 68 18 148/75 93 L 07/11/21 01:34 18 07/10/21 23:28 98.3 F 74 18 133/76 91 L 07/10/21 20:00 98.7 F 79 18 147/78 94 L 07/10/21 16:00 98.0 F 70 18 140/77 94 L 07/10/21 14:56 18 Intake and Output 07/10/21 07/11/21 07/11/21 22:59 06:59 14:59 Intake Total 240 480 Balance 240 480 Intake: Oral 240 480 Other: Voiding Method Bedside Commode Bedside Commode Bedside Commode Diaper Diaper Diaper # Voids 1 1 No acute distress, oriented 3. No respiratory distress, audible wheezing, use of accessory muscles. HEENT examination is grossly unremarkable. Neck supple. Full range of motion. No adenopathy thyromegaly or neck vein distention. Cardiovascular examination reveals regular rhythm rate. S1-S2 normal. No S3 or S4. No discernible murmur noted. Heart rate 83 bpm. Lungs reveal clear breath sounds. Breath sounds are equal bilaterally. Room air saturation is 96%. No wheezes. No rhonchi. No crackles. Abdomen soft bowel sounds are heard. No masses or tenderness. Extremities are intact. No cyanosis clubbing or edema. Skin is without rash or lesion. Neurologic examination is brief but nonfocal. Results - Laboratory Findings CBC and BMP: 07/10/21 05:30 07/10/21 05:30 PT/INR, D-dimer PT 11.6 sec (9.0-12.0) 07/09/21 08:09 INR 1.1 (<1.2) 07/09/21 08:09 Abnormal lab findings: Abnormal Labs 07/09/21 07/09/21 07/09/21 08:09 08:09 14:52 APTT 20.1 L Potassium 2.9 L Glucose 127 H HDL Cholesterol HSV I IgG Interpret POSITIVE A 07/10/21 05:30 APTT Potassium Glucose 119 H HDL Cholesterol 32.10 L HSV I IgG Interpret - Diagnostic Findings Chest x-ray: image reviewed Assessment and Plan Assessment: No evidence of pneumonia in my opinion, and antibiotics aren't necessary. Mental status changes, currently being evaluated by the primary service. History of hypertension. History of hyperlipidemia. Prior history of CVA. History of diabetes mellitus. History of osteoarthritis. Plan: Plan dated 07/11/2021. The patient is not having any lung issues or complaints which would suggest pneumonia. In my opinion, the chest x-ray is essentially normal. The patient is not having fever, chills, cough, phlegm production, shortness of breath, etc. No additional recommendations are made. The patient's currently being evaluated at the primary service for mental status changes. We will follow along as needed. Time with Patient: Greater than 30
--- NOTE | 2021-07-11 16:56 | P.PN ---
Subjective Progress Note Date: 07/11/21 Patient was seen for a follow-up. Patient denies any neurological symptoms. She is still having some issues with word finding difficulty "once in a while". Patient denies any headache. Patient was seen walking by herself to the sink, and she herself felt strong and stable. Telemetry monitoring showing sinus rhythm, with some ST depression, heart rate between 60 and 70 Objective - Vital Signs Vital signs: Vital Signs Temp 98.0 F 07/11/21 11:57 Pulse 83 07/11/21 11:57 Resp 18 07/11/21 11:57 BP 182/98 07/11/21 11:57 Pulse Ox 96 07/11/21 11:57 FiO2 Intake & Output 07/10/21 07/11/21 07/11/21 18:59 06:59 18:59 Intake Total 240 1130 Balance 240 1130 Intake: Intake, IV Titration 650 Amount Sodium Chloride 0.9% 1, 600 000 ml @ 75 mls/hr IV . [id number] [facility] Rx#:[id number] cefTRIAXone 2 gm In 50 Sodium Chloride 0.9% 50 ml @ 100 mls/hr IVPB Q24HR [facility] Rx#:[id number] Oral 240 480 Other: Voiding Method Bedside Commode Bedside Commode Bedside Commode Diaper Diaper Diaper # Voids 1 1 - Exam Patient still appears tremulous. Examination otherwise unchanged. Speech and language functions appears normal. Cranial nerves are normal, muscle strength normal. - Labs CBC & Chem 7: 07/10/21 05:30 07/10/21 05:30 Labs: Abnormal Lab Results - Last 24 Hours (Table) 07/09/21 07/10/21 Range/Units 14:52 05:30 HDL Cholesterol 32.10 L (40.00-60.00) mg/dL HSV I IgG Interpret POSITIVE A (NEGATIVE) Microbiology - Last 24 Hours (Table) 07/09/21 09:15 Blood Culture - Preliminary Blood No Growth after 48 hours 07/09/21 09:00 Blood Culture - Preliminary Blood No Growth after 48 hours 07/09/21 20:54 Gram Stain - Preliminary Sputum Sputum Culture - Preliminary Assessment and Plan Assessment: * 76-year-old female with recent history of viral meningitis, came with a fall related to generalized weakness, followed by speech difficulty with a fluent expressive aphasia. Rule out TIA versus focal seizure. Symptoms resolved in 30 minutes. Patient's NIH stroke scale is 0. * Borderline diabetes, with A1c 7.5 * Hypertension * Hyperlipidemia * Possible pneumonia, on Rocephin and Zithromax. Plan: * MRI of the brain with and without contrast revealed no definite change in white matter signal abnormalities. No abnormal enhancement. I reviewed her current and previous MRI of the brain, and agree, there is no significant change. No signal abnormality in the DWI. Patient does have abnormal signal in the left basal ganglia, suggestive of chronic ischemic change (not acute however). Patient states she was taking aspirin 325 mg daily for number of years. She does have multiple vascular risk factor for stroke. Suspect patient had TIA. Patient has failed aspirin. We will start Plavix 75 mg daily. After 3 weeks of dual antiplatelet medication, may stop aspirin and continue Plavix indefinitely. * EEG performed today was abnormal due to intermittent focal slowing in arrhythmic theta and delta range over the left temporal region. This is suggestive of focal cortical neuronal dysfunction, may suggest an underlying structural abnormality. No definitive epileptiform activity was seen. It was suspicion for seizure is high, suggest prolonged, sleep deprived EEG. * CTA head and neck showed no significant stenosis or occlusion. * 2-D echo with bubble study to rule out PFO pending * Patient's hemoglobin A1c 7.5. Need to optimize control of diabetes to target A1c <7.0 * Fasting lipid panel cholesterol 105, LDL 57, HDL 32 and triglycerides 79. Continue Lipitor 20 mg at bedtime, the same dose that she was at home. * Telemetry monitoring showing sinus rhythm, heart rate between 60s and 70s. * Start Pepcid 20 mg twice a day for gastric ulcer prophylaxis. * Patient's headaches have resolved at this time. Hold off lumbar puncture. * DVT prophylaxis, patient on heparin 5000 units subcu * ID following. Patient on azithromycin 500 mg daily and ceftriaxone 2 g every 24 hours. * PT and OT.
[2021-07-11] MEDS: CLOPIDOGREL 75 MG TAB PO SCH (17:38)
[2021-07-11] MEDS: ATORVASTATIN 20 MG TAB PO SCH (20:55)
[2021-07-11] MEDS: lisinopriL 10 MG TAB PO SCH (20:56)
[2021-07-11] MEDS: FAMOTIDINE 20 MG TAB PO SCH (20:56)
[2021-07-12] MEDS: SODIUM CHLORIDE 0.9% 1,000 ML IV SCH (06:25)
--- NOTE | 2021-07-12 07:13 | P.PN ---
Subjective Progress Note Date: 07/10/21 Principal diagnosis: Pneumonia Patient is a 76 year female recently admitted to this facility patient did have a fever treated for possible encephalitis however the patient did have a negative HSV DNA by PCR on the CSF and the fever responded to the Rocephin and subsequently discharged on Ceftin now presented back to the hospital concerning possible TIA. On today's evaluation that is 07/10/2021, the patient is afebrile, the patient is breathing comfortably, patient denies having any headache no further weakness no nausea no vomiting no abdominal pain no diarrhea Objective - Vital Signs Vital signs: Vital Signs Temp 98.1 F 07/10/21 08:34 Pulse 72 07/10/21 08:34 Resp 18 07/10/21 08:34 BP 157/80 07/10/21 08:34 Pulse Ox 96 07/10/21 08:34 FiO2 Intake & Output 07/09/21 07/10/21 07/10/21 18:59 06:59 18:59 Intake Total 100 Balance 100 Weight 81.647 kg 81.647 kg Intake: Oral 100 Other: Voiding Method Bedside Commode Diaper # Voids 1 1 - Exam GENERAL DESCRIPTION: An elderly female lying in bed in no distress RESPIRATORY SYSTEM: Unlabored breathing , decreased breath sounds at bases HEART: S1 S2 regular rate and rhythm , ABDOMEN: Soft , no tenderness EXTREMITIES: No edema feet - Labs CBC & Chem 7: 07/10/21 05:30 07/10/21 05:30 Labs: Abnormal Lab Results - Last 24 Hours (Table) 07/10/21 Range/Units 05:30 Glucose 119 H (74-99) mg/dL Assessment and Plan (1) Abnormal x-ray Current Visit: Yes Status: Acute Code(s): R93.89 - ABNORMAL FINDINGS ON DX IMAGING OF OTH BODY STRUCTURES SNOMED Code(s): 556703005 Plan: 1patient was recently treated at this facility with initial concern for possible encephalitis though CSF viral PCR was negative and patient fever responded to the Rocephin and Doxy, now with the chest x-ray some posterior infiltrate underlying pneumonia less likely bilateral excluded. 2patient to continue with Rocephin and Zithromax. 3we will check a CRP procalcitonin and obtain a sputum for gram stain and culture. Time with Patient: Less than 30
--- NOTE | 2021-07-12 07:18 | P.PN ---
Subjective Progress Note Date: 07/11/21 Principal diagnosis: Pneumonia Patient is a 76 year female recently admitted to this facility patient did have a fever treated for possible encephalitis however the patient did have a negative HSV DNA by PCR on the CSF and the fever responded to the Rocephin and subsequently discharged on Ceftin now presented back to the hospital concerning possible TIA. On today's evaluation that is 07/11/2021, the patient remains to be afebrile, the patient is breathing comfortably on room air, patient denies having any headache no further weakness no nausea no vomiting no abdominal pain no diarrhea Objective - Vital Signs Vital signs: Vital Signs Temp 98.5 F 07/11/21 14:00 Pulse 77 07/11/21 14:00 Resp 18 07/11/21 14:00 BP 154/83 07/11/21 14:00 Pulse Ox 90 L 07/11/21 14:00 FiO2 Intake & Output 07/11/21 14:59 Intake Total 1130 Balance 1130 Intake: Intake, IV Titration 650 Amount Sodium Chloride 0.9% 1, 600 000 ml @ 75 mls/hr IV . [id number] FOR[facility]LY [facility], 1928–1983 Rx#:[id number] cefTRIAXone 2 gm In 50 Sodium Chloride 0.9% 50 ml @ 100 mls/hr IVPB Q24HR [facility] Rx#:[id number] Oral 480 Other: Voiding Method Bedside Commode Bedside Commode Diaper Diaper # Voids 1 # Bowel Movements 1 - Exam GENERAL DESCRIPTION: An elderly female lying in bed in no distress RESPIRATORY SYSTEM: Unlabored breathing , decreased breath sounds at bases HEART: S1 S2 regular rate and rhythm , ABDOMEN: Soft , no tenderness EXTREMITIES: No edema feet - Labs CBC & Chem 7: 07/10/21 05:30 07/10/21 05:30 Labs: Abnormal Lab Results - Last 24 Hours (Table) 07/10/21 Range/Units 05:30 HDL Cholesterol 32.10 L (40.00-60.00) mg/dL Microbiology - Last 24 Hours (Table) 07/09/21 09:15 Blood Culture - Preliminary Blood No Growth after 48 hours 07/09/21 09:00 Blood Culture - Preliminary Blood No Growth after 48 hours Assessment and Plan (1) Abnormal x-ray Current Visit: Yes Status: Acute Code(s): R93.89 - ABNORMAL FINDINGS ON DX IMAGING OF OTH BODY STRUCTURES SNOMED Code(s): 708581909 Plan: 1patient was recently treated at this facility with initial concern for possib le encephalitis though CSF viral PCR was negative and patient fever responded to the Rocephin and Doxy, now with the chest x-ray some posterior infiltrate underlying pneumonia less likely bilateral excluded. Patient did have a normal CRP and a pro-calcitonin 2antibiotics has been discontinued patient will monitor closely off antibiotic Time with Patient: Less than 30
[2021-07-12] MEDS: HEPARIN SODIUM,PORCINE/PF 5,000 UNIT/0.5 ML SYRINGE SQ SCH (09:12)
[2021-07-12] MEDS: FAMOTIDINE 20 MG TAB PO SCH (09:12)
[2021-07-12] MEDS: ASPIRIN 325 MG TAB PO SCH (09:12)
[2021-07-12] MEDS: CLOPIDOGREL 75 MG TAB PO SCH (09:12)
[2021-07-12 09:26] VITALS: RESP 16; TEMP 98.7
--- NOTE | 2021-07-12 11:56 | CA ---
Transthoracic Echo Report Name: Sofiya Bui Age: 76 Gender: F : 1945 Exam Date: 07/11/2021 13:43 Exam Location: [place] [facility] Ht (in): 67 Wt (lb): 180 Ordering Physician: Ugo Storm MD Attending/Referring Phys: [place] Counselor Lucero Gilbert RDCS Procedure CPT: Indications: transient aphasia TIA vs ?Seizure, Cardiac Hx: Technical Quality: Fair Contrast 1: Total Dose (mL): Contrast 2: Total Dose (mL): MEASUREMENTS (Male / Female) Normal Values 2D ECHO LV Diastolic Diameter PLAX 2.9 cm 4.2 - 5.9 / 3.9 - 5.3 cm LV Systolic Diameter PLAX 2.2 cm IVS Diastolic Thickness 1.1 cm 0.6 - 1.0 / 0.6 - 0.9 cm LVPW Diastolic Thickness 1.3 cm 0.6 - 1.0 / 0.6 - 0.9 cm LV Relative Wall Thickness 0.8 RV Internal Dim ED PLAX 2.7 cm LA Volume 51.4 cm??? 18 - 58 / 22 - 52 cm??? M-MODE Aortic Root Diameter MM 3.1 cm AV Cusp Separation MM 2.0 cm DOPPLER AV Peak Velocity 139.3 cm/s AV Peak Gradient 7.8 mmHg LVOT Peak Velocity 123.4 cm/s LVOT Peak Gradient 6.1 mmHg MV Area PHT 3.4 cm??? Mitral E Point Velocity 88.0 cm/s Mitral A Point Velocity 101.5 cm/s Mitral E to A Ratio 0.9 MV Deceleration Time 225.6 ms TR Peak Velocity 239.9 cm/s TR Peak Gradient 23.0 mmHg Right Ventricular Systolic Press 28.0 mmHg FINDINGS Left Ventricle Mildly increased left ventricular wall thickness. Normal left ventricular systolic function with no obvious regional wall motion abnormalities. Normal left ventricular diastolic filling pattern. Left ventricular ejection fraction is estimated at 55-60 %. Right Ventricle Normal right ventricular size and function. Right ventricular systolic pressure within normal limits. Right Atrium Normal right atrial size. Left Atrium Normal left atrial size. No evidence for an atrial septal defect. Negative agitated saline study for a interatrial shunt. Mitral Valve Structurally normal mitral valve. Trace to mild mitral regurgitation. Aortic Valve No aortic stenosis. Trace aortic regurgitation. Tricuspid Valve Structurally normal tricuspid valve. Trace to mild tricuspid regurgitation. Pulmonic Valve Structurally normal pulmonic valve. Trace pulmonic regurgitation. Pericardium No pericardial effusion. Aorta Normal size aortic root and proximal ascending aorta. CONCLUSIONS Mild LVH Normal left ventricular ejection fraction 55-60% No PFO by bubble study Mild mitral regurgitation Mild tricuspid regurgitation Previewed by: Dr. Sadiq Cohen DO (Electronically Signed) Final Date: 12 July 2021 11:54
[2021-07-12 12:46] VITALS: BP 163/87; PULSE 80
--- NOTE | 2021-07-13 09:28 | P.PN ---
Subjective Progress Note Date: 07/12/21 Patient was seen for a follow-up. Patient states that she is doing much better. Her speech has remarkably improved. Patient states that she had only a few instances of word finding issue. Denies any headache at all. No other neurological symptoms. Objective - Vital Signs Vital signs: Vital Signs Temp 98.7 F 07/12/21 09:10 Pulse 80 07/12/21 14:00 Resp 16 07/12/21 12:40 BP 163/87 07/12/21 12:40 Pulse Ox 98 07/12/21 12:40 FiO2 Intake & Output 07/12/21 07/13/21 07/13/21 18:59 06:59 18:59 Intake Total 480 Output Total 550 Balance -70 Intake: Oral 480 Output: Urine 550 Other: Voiding Method Bedside Commode Diaper # Bowel Movements 1 - Exam Patient is much less tremulous. Examination otherwise unchanged. Speech and language functions appears normal. Cranial nerves are normal, muscle strength normal. 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 No abnormal enhancement. I reviewed her current and previous MRI of the brain, and agree, there is no significant change. No signal abnormality in the DWI. Patient does have abnormal signal in the left basal ganglia, suggestive of chronic ischemic change (not acute however). Patient states she was taking aspirin 325 mg daily for number of years. She does have multiple vascular risk factor for stroke. Suspect patient had TIA. Patient has failed aspirin. We will start Plavix 75 mg daily. After 3 weeks of dual antiplatelet medication, may stop aspirin and continue Plavix indefinitely. * EEG performed today was abnormal due to intermittent focal slowing in arrhythmic theta and delta range over the left temporal region. This is suggestive of focal cortical neuronal dysfunction, may suggest an underlying structural abnormality. No definitive epileptiform activity was seen. It was suspicion for seizure is high, suggest prolonged, sleep deprived EEG. * CTA head and neck showed no significant stenosis or occlusion. * 2-D echo with bubble study revealed mild LVH, normal left ventricular ejection fraction 55-60%. No PFO by bubble study. Mild MR. Mild TR. * Patient's hemoglobin A1c 7.5. Need to optimize control of diabetes to target A1c <7.0 * Fasting lipid panel cholesterol 105, LDL 57, HDL 32 and triglycerides 79. Continue Lipitor 20 mg at bedtime, the same dose that she was at home. * Telemetry monitoring showing sinus rhythm, heart rate between 60s and 70s. * Start Pepcid 20 mg twice a day for gastric ulcer prophylaxis. * Patient's headaches have resolved at this time. Hold off lumbar puncture. * DVT prophylaxis, patient on heparin 5000 units subcu * ID following. Patient on azithromycin 500 mg daily and ceftriaxone 2 g every 24 hours. * PT and OT. * Neurologically clear for discharge.
== END 2021-07-12 18:49 | disposition home or self-care (01) | DRG 69 ==
LOC: EC 08:20 → 3SCARD 09:59
PROVIDERS: ADMIT Family Medicine; ATTEND Family Medicine
DX: G45.9 Transient cerebral ischemic attack, unspecified (principal); J18.9 Pneumonia, unspecified organism; K44.1 Diaphragmatic hernia with gangrene; J98.11 Atelectasis; R47.01 Aphasia; E11.9 Type 2 diabetes mellitus without complications; E78.5 Hyperlipidemia, unspecified; E87.6 Hypokalemia; I11.9 Hypertensive heart disease without heart failure; M19.90 Unspecified osteoarthritis, unspecified site; R09.02 Hypoxemia; R29.700 NIHSS score 0; R29.810 Facial weakness; Z91.81 History of falling; Z66 Do not resuscitate; Z79.82 Long term (current) use of aspirin; Z79.899 Other long term (current) drug therapy; Z82.3 Family history of stroke; Z82.49 Family history of ischemic heart disease and other diseases of the circulatory system; Z86.61 Personal history of infections of the central nervous system; Z86.73 Personal history of transient ischemic attack (TIA), and cerebral infarction without residual deficits; Z98.51 Tubal ligation status; Z90.49 Acquired absence of other specified parts of digestive tract; Z98.890 Other specified postprocedural states; Z86.19 Personal history of other infectious and parasitic diseases; Z88.1 Allergy status to other antibiotic agents; Z88.2 Allergy status to sulfonamides; Z98.49 Cataract extraction status, unspecified eye
CPT/HCPCS: 36415; 70450; 70496; 70498; 70553; 71045; 71046; 80048; 80053; 80061; 84145; 84484; 85025; 85610; 85652; 85730; 86140; 86694; 86695; 86696; 87040; 87070; 87205; 93005; 93306; 94760; 95816